=== PATIENT | male | born 1965 | race Caucasian/White ===

== ENCOUNTER → 2016-08-14 | Outpatient (CLI) | payer MEDICARE ==
[~2016-08-14] MED LIST: ATIVAN1 MG PO; AUGMENTIN 875875 MG PO; AVPAK AZITHROM250 M1 PO; BACTRIM DS 8001 TA1 PO; CELEXA10 MG; CELEXA10 MG PO; CELEXA20 MG; CELEXA40 MG PO; CEPHALEXIN500 M1 PO; CLINDAMYCIN HC300 MG PO; CYCLOBENZAPRINE10 MG PO; DELSYM30 MG/5 ML PO; DELTASONE20 M1 PO; ENALAPRIL MALEA20 MG PO; ENALAPRIL10 MG; ENALAPRIL2.5 MG PO; ENALAPRIL20 MG PO; FLONASE 0.05% 121 EA NAS; GABAPENTIN400 MG PO; GENTACIDIN5 ML NAS; HUMALOG100 U/ML SC; HYDROCODONE BIT1 T11 PO; IBU800 M1 PO; IBU800 MG PO; LANSOPRAZOLE30 MG PO; LANTUS100 U/ML SC; LEXAPRO20 MG PO; LINAGLIPTIN 5 MG; LOPRESSOR50 MG PO; METFORMIN HCL1000 MG PO; METFORMIN1000 MG PO; METFORMIN500 MG PO; METOPROLOL SR25 MG PO; METOPROLOL SUCC50 MG PO; METOPROLOL50 MG PO; MOTRIN800 MG PO; NEURONTIN300 MG PO; NORCO 5-325 TA1 EACH PO; NORFLEX100 MG PO; NOVOLIN 701 UNIT/0.0 SC; NOVOLIN R100 U/ML SC; NOVOLOG 70/30 M10 ML SC; NOVOLOG1 UNIT/0.0 SC; NOVOLOG100 U/ML SC; PRAVACHOL20 MG PO; PREDNICOT20 MG PO; RESTORIL30 M1 PO; ROBITUSSIN AC 10 MG/ PO; SEROQUEL XR300 MG PO; SEROQUEL XR400 MG PO; SEROQUEL100 MG PO; SEROQUEL200 MG PO; TAMIFLU75 MG PO; TRADJENTA5 M1 PO; TRAMADOL HCL50 MG PO; VIBRAMYCIN100 MG PO; VICO10300 PO; VISTARIL50 MG PO
--- NOTE | ~2016-08-14 | PF ---
[place], [place] PULMONARY FUNCTION TEST [facility]: [id number] UNIT #: [id number] ROOM: DOCTOR: EITAN VALENTE MD,ALEXANDER BIRTHDATE: [birth year] DOS: 08/14/2016 PULMONARY FUNCTION TEST TESTIN08/14/2016 ORDERED BY: Melissa Clemens. BUTTON SPINDLER HISTORY: The patient recorded a 51 years old male, height of 71 inches, weight of 324 pounds, BMI 45.2 with history of chronic cough with sputum expectoration, dyspnea upon exertion and frequent wheeze. Tobacco use noted 3 packs of cigarettes per day for 41 years. SPIROMETRY: The FVC was recorded 3.81 liters, 72% predicted value, mildly decreased without changes postbronchodilator. FEV1 was noted, 2.88 liters, 70% predicted value, mildly decreased without significant improvement postbronchodilator. Ratio of FEV1/FVC were recorded 76%. Flow volume was suggestive of obstructive airway pattern. The patient's lung volumes, thoracic gas volume recorded 79%, residual volume 106%, total lung capacity 85%. RV/TLC ratio was noted mildly increased. Lung volume suggestive of normal total lung capacity with mild air trapping was suggested. lung diffusion recorded 65%, mildly decreased without correction rather of carbon monoxide or hemoglobin values. The patient's airway resistance, passive conductance were noted normal; however, partial improvement occurred post-bronchodilator test. FINAL IMPRESSION: Possibility of mild reversible obstructive lung disease cannot be excluded with current pulmonary function test. Clinical correlation advised. ALEXANDER LAIRD MD CM:PFREPORT:PULMONARY FUNCTION TEST 1513 [id number] ALEXANDER VALENTE MD
== END ==
LOC: CP 07:58
DX: R05 Cough (principal); Z72.0 Tobacco use

== ENCOUNTER → 2016-12-06 | Outpatient (CLI) | payer MEDICARE ==
[~2016-12-06] MED LIST changes: +INDOMETHACIN50 MG PO
[2016-12-06 12:06] LABS: BASO # 0.1 10*3/uL (0.0-0.1); BASO % 0.9 % (0.0-1.0); EOS # 0.9 10*3/uL (0.0-0.4); EOS % 6.2 % (1.0-4.0); HEMATOCRIT 47.8 % (42.0-52.0); HEMOGLOBIN 15.7 g/dl (14.0-18.0); IG # 0.1 10*3/uL (0.0-0.1); LYMPH # 3.6 10*3/uL (1.3-4.4); LYMPH % 25.9 % (27.0-41.0); MEAN CELL VOLUME 89.3 fl (80.0-94.0); MEAN CORPUSCULAR HGB 29.3 pg (27.0-31.0); MEAN CORPUSCULAR HGB CONC 32.8 g/dl (33.0-37.0); MEAN PLATELET VOLUME 10.1 fl (9.6-12.3); MONO # 0.7 10*3/uL (0.1-1.0); MONO % 5.4 % (3.0-9.0); NEUT # 8.4 10*3/uL (2.3-7.9); NEUT % 61.2 % (47.0-73.0); PLATELET COUNT AUTOMATED 315 10*3/uL (130-400); RED BLOOD COUNT 5.35 10*6/uL (4.50-5.90); RED CELL DISTRI WIDTH 14.7 % (0-14.5); WHITE BLOOD COUNT 13.8 10*3/uL (4.8-10.8)
[2016-12-06 12:29] LABS: ALBUMIN 3.3 gm/dl (3.1-4.5); ALKALINE PHOSPHATASE 171 U/L (45-117); BILIRUBIN, DIRECT < 0.1 mg/dL (0.0-0.2); BILIRUBIN, TOTAL 0.3 mg/dl (0.2-1.0); BUN 12 mg/dl (7-24); CARBON DIOXIDE 25 mmol/L (21-32); CHLORIDE 103 mmol/L (98-107); CHOLESTEROL 127 mg/dL (<200); EST GLOM FILT AFRICAN AMERICAN > 60 ml/min; GLUCOSE 187 mg/dL (65-99); HDL CHOLESTEROL 32 mg/dl (40-60); LDL CHOLESTEROL 60 mg/dL (9-159); POTASSIUM 4.3 mmol/L (3.5-5.1); SGOT/AST 13 IU/L (3-35); SGPT/ALT 22 U/L (12-78); SODIUM 139 mmol/L (136-145); TOTAL PROTEIN 7.1 gm/dL (6.4-8.2); TRIGLYCERIDES 177 mg/dl (<150); VLDL CHOLESTEROL 35 mg/dL (6-40)
[2016-12-06 12:36] LABS: BILIRUBIN NEGATIVE (NEGATIVE); BLOOD NEGATIVE (NEGATIVE); CLARITY CLEAR (CLEAR); COLOR YELLOW (YELLOW); GLUCOSE TRACE (NEGATIVE); KETONE NEGATIVE (NEGATIVE); LEUKO ESTERASE NEGATIVE (NEGATIVE); NITRITE NEGATIVE (NEGATIVE); PH 5.5 (5.0-9.0); PROTEIN NEGATIVE (NEGATIVE)
[2016-12-06 12:36] LABS: VITAMIN D, 25-HYDROXY 14.1 ng/mL (30-100)
[2016-12-06 12:44] LABS: HEMOGLOBIN A1c 7.2 % (4.8-5.6)
[2016-12-06 14:27] LABS: BACTERIA TRACE; RBC 0-2 rbc/hpf (0-2); WBC 0-2 wbc/hpf (0-5)
== END ==
LOC: LAB 11:27
PROVIDERS: Nurse Practitioner Family
DX: E78.4 Other hyperlipidemia (principal); I10 Essential (primary) hypertension; E55.9 Vitamin D deficiency, unspecified; E11.40 Type 2 diabetes mellitus with diabetic neuropathy, unspecified; E11.65 Type 2 diabetes mellitus with hyperglycemia

== ENCOUNTER 2016-12-08 02:14 | Emergency (ER) | payer MEDICARE ==
[~2016-12-08] VITALS: Ht 177.8 cm; Wt 144.2 kg
[~2016-12-08 02:14] MED LIST changes: -INDOMETHACIN50 MG PO
[2016-12-08 02:18] VITALS: BP 137/73
[2016-12-08] MEDS ORDERED: INDOMETHACIN50 MG PO (04:10)
== END 2016-12-08 04:37 | disposition home or self-care (01) ==
LOC: ED 02:14
DX: M94.0 Chondrocostal junction syndrome [Tietze] (principal); J44.9 Chronic obstructive pulmonary disease, unspecified; E11.9 Type 2 diabetes mellitus without complications; I10 Essential (primary) hypertension; F17.200 Nicotine dependence, unspecified, uncomplicated; Z91.030 Bee allergy status; Z79.899 Other long term (current) drug therapy

== ENCOUNTER 2016-12-16 09:03 | Emergency (ER) | payer MEDICARE ==
[~2016-12-16] VITALS: Ht 177.8 cm; Wt 142.4 kg
[~2016-12-16 09:03] MED LIST changes: +INDOMETHACIN50 MG PO
[2016-12-16 09:27] VITALS: BP 168/89
[2016-12-16 10:10] LABS: BASO # 0.1 10*3/uL (0.0-0.1); EOS % 7.2 % (1.0-4.0); HEMATOCRIT 43.4 % (42.0-52.0); HEMOGLOBIN 14.3 g/dl (14.0-18.0); IG # 0.1 10*3/uL (0.0-0.1); LYMPH # 3.6 10*3/uL (1.3-4.4); LYMPH % 24.9 % (27.0-41.0); MEAN CELL VOLUME 88.8 fl (80.0-94.0); MEAN CORPUSCULAR HGB 29.2 pg (27.0-31.0); MEAN CORPUSCULAR HGB CONC 32.9 g/dl (33.0-37.0); MEAN PLATELET VOLUME 9.6 fl (9.6-12.3); MONO # 0.8 10*3/uL (0.1-1.0); MONO % 5.5 % (3.0-9.0); NEUT # 8.7 10*3/uL (2.3-7.9); NEUT % 60.8 % (47.0-73.0); PLATELET COUNT AUTOMATED 334 10*3/uL (130-400); RED BLOOD COUNT 4.89 10*6/uL (4.50-5.90); WHITE BLOOD COUNT 14.3 10*3/uL (4.8-10.8)
[2016-12-16 10:24] LABS: ALBUMIN 3.1 gm/dl (3.1-4.5); ALKALINE PHOSPHATASE 156 U/L (45-117); BILIRUBIN, TOTAL 0.2 mg/dl (0.2-1.0); BUN 18 mg/dl (7-24); CARBON DIOXIDE 23 mmol/L (21-32); CHLORIDE 108 mmol/L (98-107); EST GLOM FILT AFRICAN AMERICAN > 60 ml/min; GLUCOSE 201 mg/dL (65-99); POTASSIUM 4.5 mmol/L (3.5-5.1); SGOT/AST 14 IU/L (3-35); SGPT/ALT 20 U/L (12-78); SODIUM 141 mmol/L (136-145); TOTAL PROTEIN 6.7 gm/dL (6.4-8.2); URIC ACID 3.8 mg/dL (3.5-7.2)
[2016-12-16] MEDS ORDERED: CEPHALEXIN500 M1 PO (11:40)
[2016-12-16] MEDS ORDERED: ULTRAM50 MG PO (11:40)
== END 2016-12-16 11:57 | disposition home or self-care (01) ==
LOC: ED 09:03
PROVIDERS: Registered Nurse
DX: L03.116 Cellulitis of left lower limb (principal); F17.200 Nicotine dependence, unspecified, uncomplicated; Z91.030 Bee allergy status; Z79.4 Long term (current) use of insulin

== ENCOUNTER 2016-12-25 14:14 | Inpatient (IN) | payer MEDICARE ==
[~2016-12-25] VITALS: Ht 177.8 cm; Wt 147.1 kg
[~2016-12-25 14:14] MED LIST changes: +ULTRAM50 MG PO
[2016-12-25 14:21] VITALS: BP 135/70
[2016-12-25 15:20] LABS: BASO # 0.1 10*3/uL (0.0-0.1); BASO % 0.4 % (0.0-1.0); EOS % 4.7 % (1.0-4.0); HEMATOCRIT 45.2 % (42.0-52.0); HEMOGLOBIN 14.7 g/dl (14.0-18.0); IG # 0.1 10*3/uL (0.0-0.1); LYMPH # 2.9 10*3/uL (1.3-4.4); MEAN CELL VOLUME 89.2 fl (80.0-94.0); MEAN CORPUSCULAR HGB CONC 32.5 g/dl (33.0-37.0); MEAN PLATELET VOLUME 10.2 fl (9.6-12.3); MONO % 5.1 % (3.0-9.0); NEUT # 15.4 10*3/uL (2.3-7.9); NEUT % 75.4 % (47.0-73.0); PLATELET COUNT AUTOMATED 341 10*3/uL (130-400); RED BLOOD COUNT 5.07 10*6/uL (4.50-5.90); RED CELL DISTRI WIDTH 15.4 % (0-14.5); WHITE BLOOD COUNT 20.5 10*3/uL (4.8-10.8)
[2016-12-25 15:28] LABS: INTERNATIONAL NORM RATIO 0.9 (2.0-3.5); PROTHROMBIN TIME 9.5 SECONDS (9.0-12.4)
[2016-12-25 15:36] LABS: ALBUMIN 3.7 gm/dl (3.1-4.5); ALKALINE PHOSPHATASE 182 U/L (45-117); BILIRUBIN, TOTAL 0.3 mg/dl (0.2-1.0); BUN 23 mg/dl (7-24); CARBON DIOXIDE 24 mmol/L (21-32); CHLORIDE 106 mmol/L (98-107); EST GLOM FILT AFRICAN AMERICAN > 60 ml/min; GLUCOSE 202 mg/dL (65-99); MAGNESIUM 2.1 mg/dL (1.5-2.1); POTASSIUM 4.6 mmol/L (3.5-5.1); SGOT/AST 17 IU/L (3-35); SGPT/ALT 27 U/L (12-78); SODIUM 139 mmol/L (136-145); TOTAL PROTEIN 7.2 gm/dL (6.4-8.2)
[2016-12-25 15:37] LABS: TROPONIN I < 0.015 ng/ml (<0.045)
[2016-12-25] MEDS ORDERED: ZOCOR20 MG PO (16:15)
[2016-12-25] MEDS ORDERED: JARDIANCE25 MG PO (16:15)
[2016-12-25] MEDS ORDERED: PRILOSEC20 M1 PO (16:16)
[2016-12-25] MEDS ORDERED: TOUJEO300 U/ML SC (16:17)
[2016-12-25] MEDS ORDERED: HUMALOG 751 UNIT/0.0 SC (16:17)
[2016-12-25] MEDS ORDERED: CLEOCIN HCL150 MG PO (16:18)
[2016-12-25] MEDS ORDERED: ZANTAC 150150 MG PO (16:18)
[2016-12-25] MEDS ORDERED: BELSOMRA10 MG PO (16:19)
[2016-12-25 17:00] VITALS: BP 146/80
[2016-12-25 17:01] VITALS: BP 146/80
[2016-12-25] MEDS ORDERED: NEURONTIN800 MG PO (18:10)
[2016-12-25] MEDS ORDERED: XANAX1 MG PO (18:13)
[2016-12-25] MEDS ORDERED: VICO10300 PO (18:14)
[2016-12-25 18:24] LABS: CPK 153 U/L (39-308)
[2016-12-25 18:25] LABS: TROPONIN I < 0.015 ng/ml (<0.045)
[2016-12-25 20:00] VITALS: BP 142/77
[2016-12-25 22:02] LABS: CKMB 3.2 ng/ml (0.5-3.6); CPK 150 U/L (39-308)
[2016-12-25 22:03] LABS: TROPONIN I < 0.015 ng/ml (<0.045)
[2016-12-26] VITALS: BP 132/65
[2016-12-26 00:56] LABS: CKMB 2.9 ng/ml (0.5-3.6); CPK 126 U/L (39-308)
[2016-12-26 00:57] LABS: TROPONIN I < 0.015 ng/ml (<0.045)
[2016-12-26 07:07] LABS: BASO # 0.1 10*3/uL (0.0-0.1); BASO % 0.7 % (0.0-1.0); EOS # 0.8 10*3/uL (0.0-0.4); EOS % 5.9 % (1.0-4.0); HEMATOCRIT 43.6 % (42.0-52.0); HEMOGLOBIN 14.3 g/dl (14.0-18.0); IG # 0.1 10*3/uL (0.0-0.1); LYMPH # 2.1 10*3/uL (1.3-4.4); LYMPH % 15.7 % (27.0-41.0); MEAN CELL VOLUME 88.6 fl (80.0-94.0); MEAN CORPUSCULAR HGB 29.1 pg (27.0-31.0); MEAN CORPUSCULAR HGB CONC 32.8 g/dl (33.0-37.0); MEAN PLATELET VOLUME 9.8 fl (9.6-12.3); MONO # 0.9 10*3/uL (0.1-1.0); MONO % 6.4 % (3.0-9.0); NEUT # 9.6 10*3/uL (2.3-7.9); NEUT % 70.9 % (47.0-73.0); PLATELET COUNT AUTOMATED 288 10*3/uL (130-400); RED BLOOD COUNT 4.92 10*6/uL (4.50-5.90); RED CELL DISTRI WIDTH 15.4 % (0-14.5); WHITE BLOOD COUNT 13.5 10*3/uL (4.8-10.8)
[2016-12-26 07:25] LABS: ALBUMIN 2.9 gm/dl (3.1-4.5); ALKALINE PHOSPHATASE 168 U/L (45-117); BILIRUBIN, TOTAL 0.5 mg/dl (0.2-1.0); BUN 19 mg/dl (7-24); CARBON DIOXIDE 26 mmol/L (21-32); CHLORIDE 108 mmol/L (98-107); EST GLOM FILT AFRICAN AMERICAN > 60 ml/min; GLUCOSE 129 mg/dL (65-99); MAGNESIUM 2.1 mg/dL (1.5-2.1); PHOSPHOROUS 3.2 mg/dL (2.5-4.9); POTASSIUM 4.6 mmol/L (3.5-5.1); SGOT/AST 16 IU/L (3-35); SGPT/ALT 21 U/L (12-78); SODIUM 139 mmol/L (136-145); TOTAL PROTEIN 6.6 gm/dL (6.4-8.2)
[2016-12-26 07:30] LABS: FREE T4 0.65 ng/dl (0.76-1.46)
[2016-12-26 08:00] VITALS: BP 134/62
[2016-12-26 12:00] VITALS: BP 106/50
[2016-12-26 16:00] VITALS: BP 121/50
[2016-12-26 20:00] VITALS: BP 129/68
[2016-12-27] VITALS: BP 116/64
[2016-12-27 06:37] LABS: BASO # 0.1 10*3/uL (0.0-0.1); BASO % 0.8 % (0.0-1.0); EOS # 0.7 10*3/uL (0.0-0.4); EOS % 6.2 % (1.0-4.0); HEMATOCRIT 42.1 % (42.0-52.0); HEMOGLOBIN 13.5 g/dl (14.0-18.0); LYMPH % 25.1 % (27.0-41.0); MEAN CELL VOLUME 88.4 fl (80.0-94.0); MEAN CORPUSCULAR HGB 28.4 pg (27.0-31.0); MEAN CORPUSCULAR HGB CONC 32.1 g/dl (33.0-37.0); MEAN PLATELET VOLUME 10.2 fl (9.6-12.3); MONO % 8.8 % (3.0-9.0); NEUT % 58.8 % (47.0-73.0); PLATELET COUNT AUTOMATED 296 10*3/uL (130-400); RED BLOOD COUNT 4.76 10*6/uL (4.50-5.90); RED CELL DISTRI WIDTH 15.2 % (0-14.5); WHITE BLOOD COUNT 11.9 10*3/uL (4.8-10.8)
[2016-12-27 07:12] LABS: BUN 15 mg/dl (7-24); CHLORIDE 106 mmol/L (98-107); GLUCOSE 95 mg/dL (65-99); POTASSIUM 4.1 mmol/L (3.5-5.1); SODIUM 137 mmol/L (136-145)
[2016-12-27 07:15] LABS: CARBON DIOXIDE 23 mmol/L (21-32); EST GLOM FILT AFRICAN AMERICAN > 60 ml/min
[2016-12-27 08:00] VITALS: BP 139/71
[2016-12-27] MEDS ORDERED: OMNICEF300 MG PO (11:20)
[2016-12-27] MEDS ORDERED: CEPHALEXIN500 M1 PO ×2 (11:28→11:29)
[2016-12-27] MEDS ORDERED: LAMISIL250 MG PO ×2 (11:35→11:38)
[2016-12-27] MEDS ORDERED: ATHLETE'S FOOT15 GM T ×2 (11:35→11:38)
[2016-12-27 12:00] VITALS: BP 145/80
== END 2016-12-27 12:31 | disposition home or self-care (01) | DRG 872 ==
LOC: ED 14:14 → EDHOLD 15:48 → 4E 15:48
PROVIDERS: Hospitalist; Internal Medicine; Physician Assistant
DX: A41.9 Sepsis, unspecified organism (principal); E11.40 Type 2 diabetes mellitus with diabetic neuropathy, unspecified; E44.0 Moderate protein-calorie malnutrition; E11.65 Type 2 diabetes mellitus with hyperglycemia; L03.116 Cellulitis of left lower limb; F17.200 Nicotine dependence, unspecified, uncomplicated; I10 Essential (primary) hypertension; B35.1 Tinea unguium; Z68.42 Body mass index [BMI] 45.0-49.9, adult; G47.00 Insomnia, unspecified; E66.01 Morbid (severe) obesity due to excess calories; G47.33 Obstructive sleep apnea (adult) (pediatric); J44.9 Chronic obstructive pulmonary disease, unspecified; E78.5 Hyperlipidemia, unspecified; M1A.9XX0 Chronic gout, unspecified, without tophus (tophi); K21.9 Gastro-esophageal reflux disease without esophagitis; Z95.5 Presence of coronary angioplasty implant and graft; Z91.030 Bee allergy status; Z79.2 Long term (current) use of antibiotics; Z79.899 Other long term (current) drug therapy; Z71.6 Tobacco abuse counseling; Z79.4 Long term (current) use of insulin; Z79.84 Long term (current) use of oral hypoglycemic drugs

== ENCOUNTER 2017-01-03 10:48 | Inpatient (IN) | payer MEDICARE ==
[~2017-01-03] VITALS: Ht 179.1 cm; Wt 140.8 kg
--- NOTE | ~2017-01-03 | CON ---
[place], [place] REPORT OF CONSULTATION NAME[id number] UNIT #: [id number] ROOM: 404 DOCTOR: SIS SMALL,OCTOBER BIRTHDATE: [birth year] DOS: 01/03/2017 HISTORY OF PRESENT ILLNESS: The patient is a 51-year-old male who was readmitted for leukocytosis. He was just discharged a few days ago for cellulitis. He was originally given vancomycin and Zosyn then switched over to Ancef during the hospitalization and then eventually discharged on Keflex 1000 mg p.o. q. 6 hours. He was admitted due to following up with his family doctor and had elevated WBCs, they are currently 17.7. He denies any fevers or chills. He feels well. No nausea, vomiting or diarrhea. He does have some elevation in eosinophils on his differential. He feels well. States the leg has slowly been improving at home. Continues with left leg swelling, redness and pain. He is also on Lamisil for onychomycosis and he has been using Lamisil topically for tinea pedis. He has had an ultrasound that was negative for DVT. PAST MEDICAL HISTORY: As above as well as cervical radiculopathy, COPD, diabetes, dyslipidemia, GERD, gout, hypertension, obesity, neuropathy, onychomycosis, obstructive sleep apnea, PTCA. SOCIAL HISTORY: He is a chronic smoker, nondrinker, no illicit drug use. FAMILY MEDICAL HISTORY: Significant for CHF, diabetes and hypertension. ALLERGIES: INCLUDE BEESTINGS. LABORATORY DATA: WBC 17.7, platelets 397. BUN 14, creatinine 0.93. MRSA screen is pending. Blood cultures are negative from his last hospitalization and I do not see whether he has ever had an MRSA screen. REVIEW OF SYSTEMS: As above in history of present illness. No cough or shortness of breath. No rash or itch. Again, no fevers or shaking chills. He feels well. He does still have some pain, swelling and redness of the left lower extremity, which he states has been slowly improving. He is obese, diabetic, has peripheral neuropathy. Review of systems is otherwise unremarkable. PHYSICAL EXAMINATION: VITAL SIGNS: Temp 98.2, pulse 74, respirations 18, BP 132/74. GENERAL: A 51-year-old obese male, in no acute distress. HEAD, EYES, EARS, NOSE AND THROAT: Normocephalic. No thrush. NECK: Supple. LUNGS: Clear to auscultation bilaterally. Respirations even and unlabored. HEART: Regular rhythm. No murmur appreciated. ABDOMEN: Soft, obese, nontender. No masses. EXTREMITIES: Left lower extremity +2 to 3 edema with mild dull erythema, increased warmth, some tenderness. Left foot with tinea pedis. He has onychomycosis. SKIN: Otherwise, warm, dry, free of rashes. ASSESSMENT: Left lower extremity cellulitis, leukocytosis, eosinophilia. [place], [place] REPORT OF CONSULTATION NAME: ANTOLIN RICKETTS UNIT #: [id number] ROOM: 404 DOCTOR: SIS SMALLOCTOBER BIRTHDATE: [birth year] PLAN: At this point, he is to complete the Keflex he has at home. We will give him vancomycin overnight, await his MRSA screen. Upon discharge, he could have doxycycline 100 mg twice a day. I did discuss with him the need to keep his leg elevated while he is trying to recover from the cellulitis to aid in the swelling, redness and discomfort. He very much wants to leave tonight, which I would consider after dose of vancomycin, but it is preferred per his hospitalist to keep him here overnight, which is certainly reasonable. Again, as long as he does well overnight, he will be fine to go home tomorrow on doxycycline and finish up the Keflex that he has. I will give him a few extra days of the Keflex, but I suspect his small improvement in elevated WBCs at home may be in part contributable to need for MRSA coverage. GEORGE ALEGRE CNP JERAD VILLALOBOS MD CM:CONSTR:REPORT OF CONSULTATION 1907 01/04/17 0844 interface
--- NOTE | ~2017-01-03 | CON ---
[place], [place] REPORT OF CONSULTATION NAME: ANTOLIN RICKETTS UNIT #: [id number] ROOM: 404 DOCTOR: SIS SMALL,OCTOBER BIRTHDATE: [birth year] DOS: ADDENDUM: I did discuss with the patient instructions for taking the doxycycline including warning him regarding photosensitivity as well as taking with food to prevent nausea and vomiting and avoiding calcium and dairy products for 1 hour before and after taking. GEORGE ALEGRE CNP JERAD VILLALOBOS MD CM:CONSTR:REPORT OF CONSULTATION 1908 01/04/17 0845 interface
--- NOTE | ~2017-01-03 | CON ---
[place], [place] REPORT OF CONSULTATION NAME: ANTOLIN RICKETTS UNIT #: [id number] ROOM: 404 DOCTOR: WILFREDO JOHNSON,JERAD Yao BIRTHDATE: [birth year] DOS: 01/03/2017 ADDENDUM I agree with the above plans as described and outlined after reviewing the chart, labs radiographs and cultures. We will make adjustments accordingly and followup clinically. JERAD VILLALOBOS MD CM:CONSTR:REPORT OF CONSULTATION 1738 01/06/17 1259 interface
[~2017-01-03 10:48] MED LIST changes: +ATHLETE'S FOOT15 GM T; +BELSOMRA10 MG PO; +CLEOCIN HCL150 MG PO; +HUMALOG 751 UNIT/0.0 SC; +JARDIANCE25 MG PO; +LAMISIL250 MG PO; +NEURONTIN800 MG PO; +OMNICEF300 MG PO; +PRILOSEC20 M1 PO; +TOUJEO300 U/ML SC; +XANAX1 MG PO; +ZANTAC 150150 MG PO; +ZOCOR20 MG PO
[2017-01-03 11:00] VITALS: BP 122/65
[2017-01-03 11:03] VITALS: BP 125/69
[2017-01-03] MEDS ORDERED: LOPRESSOR50 M1 PO (12:15)
[2017-01-03] MEDS ORDERED: QUETIAPINE FUM PO ×2 (12:30→12:32)
[2017-01-03] MEDS ORDERED: LAMISIL250 MG PO (12:38)
[2017-01-03 14:32] LABS: BASO # 0.1 10*3/uL (0.0-0.1); BASO % 0.7 % (0.0-1.0); EOS % 5.9 % (1.0-4.0); HEMATOCRIT 43.9 % (42.0-52.0); HEMOGLOBIN 14.3 g/dl (14.0-18.0); IG # 0.1 10*3/uL (0.0-0.1); LYMPH # 3.7 10*3/uL (1.3-4.4); LYMPH % 20.6 % (27.0-41.0); MEAN CELL VOLUME 87.1 fl (80.0-94.0); MEAN CORPUSCULAR HGB 28.4 pg (27.0-31.0); MEAN CORPUSCULAR HGB CONC 32.6 g/dl (33.0-37.0); MEAN PLATELET VOLUME 9.7 fl (9.6-12.3); MONO # 0.9 10*3/uL (0.1-1.0); MONO % 5.1 % (3.0-9.0); NEUT % 67.4 % (47.0-73.0); PLATELET COUNT AUTOMATED 397 10*3/uL (130-400); RED BLOOD COUNT 5.04 10*6/uL (4.50-5.90); WHITE BLOOD COUNT 17.7 10*3/uL (4.8-10.8)
[2017-01-03 14:43] LABS: BUN 14 mg/dl (7-24); CARBON DIOXIDE 25 mmol/L (21-32); CHLORIDE 105 mmol/L (98-107); EST GLOM FILT AFRICAN AMERICAN > 60 ml/min; GLUCOSE 218 mg/dL (65-99); POTASSIUM 4.6 mmol/L (3.5-5.1); SODIUM 140 mmol/L (136-145)
[2017-01-03 16:00] VITALS: BP 132/74
[2017-01-03 20:00] VITALS: BP 130/70
[2017-01-04] VITALS: BP 100/52
[2017-01-04 06:39] LABS: BASO # 0.1 10*3/uL (0.0-0.1); BASO % 0.9 % (0.0-1.0); EOS % 7.9 % (1.0-4.0); HEMATOCRIT 42.3 % (42.0-52.0); HEMOGLOBIN 13.8 g/dl (14.0-18.0); IG # 0.1 10*3/uL (0.0-0.1); LYMPH # 3.4 10*3/uL (1.3-4.4); LYMPH % 26.6 % (27.0-41.0); MEAN CELL VOLUME 87.4 fl (80.0-94.0); MEAN CORPUSCULAR HGB 28.5 pg (27.0-31.0); MEAN CORPUSCULAR HGB CONC 32.6 g/dl (33.0-37.0); MEAN PLATELET VOLUME 9.5 fl (9.6-12.3); MONO # 0.8 10*3/uL (0.1-1.0); MONO % 6.4 % (3.0-9.0); NEUT # 7.3 10*3/uL (2.3-7.9); NEUT % 57.7 % (47.0-73.0); PLATELET COUNT AUTOMATED 362 10*3/uL (130-400); RED BLOOD COUNT 4.84 10*6/uL (4.50-5.90); WHITE BLOOD COUNT 12.7 10*3/uL (4.8-10.8)
[2017-01-04 07:15] LABS: ALBUMIN 2.9 gm/dl (3.1-4.5); BUN 15 mg/dl (7-24); CARBON DIOXIDE 29 mmol/L (21-32); CHLORIDE 104 mmol/L (98-107); EST GLOM FILT AFRICAN AMERICAN > 60 ml/min; GLUCOSE 165 mg/dL (65-99); MAGNESIUM 2.3 mg/dL (1.5-2.1); PHOSPHOROUS 4.3 mg/dL (2.5-4.9); POTASSIUM 4.2 mmol/L (3.5-5.1); SGOT/AST 13 IU/L (3-35); SGPT/ALT 18 U/L (12-78); SODIUM 141 mmol/L (136-145)
[2017-01-04 07:22] LABS: ALKALINE PHOSPHATASE 167 U/L (45-117); BILIRUBIN, TOTAL 0.3 mg/dl (0.2-1.0); TOTAL PROTEIN 6.8 gm/dL (6.4-8.2)
[2017-01-04 08:00] VITALS: BP 116/78
[2017-01-04 08:01] VITALS: BP 116/78
[2017-01-04] MEDS ORDERED: DOXYCYCLINE100 M3 PO (10:07)
[2017-01-04] MEDS ORDERED: KEFLEX500 M1 PO (10:07)
[2017-01-04] MEDS ORDERED: VITAMIN D1000 IU PO (11:00)
[2017-01-04 12:00] VITALS: BP 122/54
== END 2017-01-04 13:01 | disposition home or self-care (01) | DRG 603 ==
LOC: 4E 10:48
PROVIDERS: Hospitalist
DX: L03.116 Cellulitis of left lower limb (principal); E11.40 Type 2 diabetes mellitus with diabetic neuropathy, unspecified; E11.621 Type 2 diabetes mellitus with foot ulcer; E11.65 Type 2 diabetes mellitus with hyperglycemia; D72.1 Eosinophilia; L97.419 Non-pressure chronic ulcer of right heel and midfoot with unspecified severity; Z68.41 Body mass index [BMI] 40.0-44.9, adult; J42 Unspecified chronic bronchitis; G47.33 Obstructive sleep apnea (adult) (pediatric); I10 Essential (primary) hypertension; E78.5 Hyperlipidemia, unspecified; M1A.9XX0 Chronic gout, unspecified, without tophus (tophi); K21.9 Gastro-esophageal reflux disease without esophagitis; B35.1 Tinea unguium; E66.01 Morbid (severe) obesity due to excess calories; F17.210 Nicotine dependence, cigarettes, uncomplicated; G47.00 Insomnia, unspecified; E55.9 Vitamin D deficiency, unspecified; B35.3 Tinea pedis; Z95.5 Presence of coronary angioplasty implant and graft; Z82.49 Family history of ischemic heart disease and other diseases of the circulatory system; Z83.3 Family history of diabetes mellitus; Z91.030 Bee allergy status; Z79.1 Long term (current) use of non-steroidal anti-inflammatories (NSAID); Z79.4 Long term (current) use of insulin; Z79.899 Other long term (current) drug therapy; Z79.84 Long term (current) use of oral hypoglycemic drugs

== ENCOUNTER → 2017-03-05 | Outpatient (CLI) | payer MEDICARE ==
[~2017-03-05] MED LIST changes: +DOXYCYCLINE100 M3 PO; +KEFLEX500 M1 PO; +LOPRESSOR50 M1 PO; +QUETIAPINE FUM PO; +VITAMIN D1000 IU PO
== END | disposition home or self-care (01) ==
LOC: RAD 14:54
DX: M47.812 Spondylosis without myelopathy or radiculopathy, cervical region (principal); R53.1 Weakness; M79.601 Pain in right arm; M79.602 Pain in left arm

== ENCOUNTER 2017-03-07 11:33 | Inpatient (IN) | payer MEDICARE ==
[~2017-03-07] VITALS: Ht 177.8 cm; Wt 142.0 kg
--- NOTE | ~2017-03-07 | CON ---
[place], [place] REPORT OF CONSULTATION NAME: ANTOLIN RICKETTS [facility] #: [id number] UNIT #: [id number] ROOM: 425 DOCTOR: EN CHILDRESS DPM BIRTHDATE: [birth year] DOS: 03/08/2017 SUBJECTIVE: The patient is a 52-year-old male who was admitted with swelling and redness of the left lower extremity yesterday. The patient has history of cellulitis previously. PAST MEDICAL HISTORY: The patient has a past medical history of cellulitis, Charcot ankle, hyperkalemia, hyperphosphatemia, hyponatremia, leukocytosis, morbid obesity with BMI of 40 to 44.9, tobacco abuse, uncontrolled diabetes, vitamin D deficiency, cervical radiculopathy, COPD, diabetes, dyslipidemia, GERD, gout, hypertension, insomnia, morbid obesity, neuropathy, onychomycosis, obstructive sleep apnea. PAST SURGICAL HISTORY: PTCA. SOCIAL HISTORY: History of smoking. Denies alcohol or illicit drug use. FAMILY HISTORY: Nonspecified for CHF, diabetes, hypertension. ALLERGIES: BEE STINGS. PHYSICAL EXAMINATION: EXTREMITIES: Lower extremity examination: Pedal pulses palpable, but diminished. There is mild cellulitis of left lower extremity with venous stasis and venous insufficiency. There is a preulcerative blister to the plantar left heel, but no full thickness breakdown, no signs of abscess noted. No signs of infection. Venous Doppler was negative for DVT. There is edema to the left ankle and foot. IMAGING: Results of radiographs of the left foot reveal evidence of probable Charcot arthropathy and mid foot dislocation and AVN of the navicular, disrupted Lisfranc ligament, suspected small lucency at the base of the fifth metatarsal. ASSESSMENT: Cellulitis, venous insufficiency, edema, left lower extremity with Charcot arthropathy. PLAN: Evaluation and management. Discharge per Internal Medicine. The patient is improving with IV antibiotics. Discussed with the patient we will obtain an MRI to ascertain the amount of destruction from the Charcot arthropathy. The patient does not need surgical intervention at this time, is to limit weightbearing. The patient will be placed into a torch walker upon discharge to offload the Charcot arthropathy. Discussed with the patient possibility of further collapse of the longitudinal arch, which would increase the risk of ulceration, plantar aspect of the foot. The patient understood this. We will order an MRI. If the patient is discharged before the MRI can be obtained, the MRI can be performed on an outpatient basis. Again, the patient will be seen for followup Friday if he is still in-house. Otherwise, we will consult him outpatient at the office and set the patient up with a torch walker for the Charcot arthropathy deformity. [place], [place] REPORT OF CONSULTATION NAME: ANTOLIN RICKETTS UNIT #: [id number] ROOM: 425 DOCTOR: EN CHILDRESS DPM BIRTHDATE: [birth year] EN CHILDRESS DPM CM:CONSTR:REPORT OF CONSULTATION 1025 03/08/17 1040 interface
[2017-03-07 11:42] VITALS: BP 156/74
[2017-03-07 12:12] LABS: BASO # 0.1 10*3/uL (0.0-0.1); BASO % 0.5 % (0.0-1.0); EOS % 0.3 % (1.0-4.0); HEMATOCRIT 40.7 % (42.0-52.0); HEMOGLOBIN 13.2 g/dl (14.0-18.0); IG # 0.1 10*3/uL (0.0-0.1); LYMPH # 1.8 10*3/uL (1.3-4.4); LYMPH % 11.5 % (27.0-41.0); MEAN CELL VOLUME 84.8 fl (80.0-94.0); MEAN CORPUSCULAR HGB 27.5 pg (27.0-31.0); MEAN CORPUSCULAR HGB CONC 32.4 g/dl (33.0-37.0); MEAN PLATELET VOLUME 9.6 fl (9.6-12.3); MONO # 0.3 10*3/uL (0.1-1.0); MONO % 2.1 % (3.0-9.0); PLATELET COUNT AUTOMATED 476 10*3/uL (130-400); RED CELL DISTRI WIDTH 15.6 % (0-14.5); WHITE BLOOD COUNT 15.3 10*3/uL (4.8-10.8)
[2017-03-07 12:26] LABS: ALBUMIN 3.4 gm/dl (3.1-4.5); ALKALINE PHOSPHATASE 218 U/L (45-117); BILIRUBIN, TOTAL 0.3 mg/dl (0.2-1.0); BUN 18 mg/dl (7-24); CARBON DIOXIDE 26 mmol/L (21-32); CHLORIDE 98 mmol/L (98-107); EST GLOM FILT AFRICAN AMERICAN > 60 ml/min; GLUCOSE 323 mg/dL (65-99); POTASSIUM 5.3 mmol/L (3.5-5.1); SGOT/AST 14 IU/L (3-35); SGPT/ALT 17 U/L (12-78); SODIUM 131 mmol/L (136-145); TOTAL PROTEIN 8.2 gm/dL (6.4-8.2)
[2017-03-07 15:32] VITALS: BP 152/67
[2017-03-07 20:00] VITALS: BP 142/70
[2017-03-08] VITALS: BP 149/80
[2017-03-08 06:57] LABS: BASO # 0.1 10*3/uL (0.0-0.1); BASO % 0.7 % (0.0-1.0); EOS # 0.3 10*3/uL (0.0-0.4); EOS % 2.6 % (1.0-4.0); HEMATOCRIT 38.6 % (42.0-52.0); HEMOGLOBIN 12.4 g/dl (14.0-18.0); IG # 0.1 10*3/uL (0.0-0.1); LYMPH # 3.4 10*3/uL (1.3-4.4); MEAN CELL VOLUME 84.5 fl (80.0-94.0); MEAN CORPUSCULAR HGB 27.1 pg (27.0-31.0); MEAN CORPUSCULAR HGB CONC 32.1 g/dl (33.0-37.0); MONO # 0.7 10*3/uL (0.1-1.0); MONO % 6.3 % (3.0-9.0); NEUT # 7.1 10*3/uL (2.3-7.9); NEUT % 60.7 % (47.0-73.0); PLATELET COUNT AUTOMATED 425 10*3/uL (130-400); RED BLOOD COUNT 4.57 10*6/uL (4.50-5.90); RED CELL DISTRI WIDTH 15.5 % (0-14.5); WHITE BLOOD COUNT 11.7 10*3/uL (4.8-10.8)
[2017-03-08 07:10] LABS: ALBUMIN 2.8 gm/dl (3.1-4.5); ALKALINE PHOSPHATASE 167 U/L (45-117); BILIRUBIN, TOTAL 0.3 mg/dl (0.2-1.0); BUN 13 mg/dl (7-24); CARBON DIOXIDE 28 mmol/L (21-32); CHLORIDE 102 mmol/L (98-107); EST GLOM FILT AFRICAN AMERICAN > 60 ml/min; GLUCOSE 219 mg/dL (65-99); MAGNESIUM 1.7 mg/dL (1.5-2.1); PHOSPHOROUS 3.1 mg/dL (2.5-4.9); SGOT/AST 13 IU/L (3-35); SGPT/ALT 14 U/L (12-78); SODIUM 138 mmol/L (136-145); TOTAL PROTEIN 6.6 gm/dL (6.4-8.2)
[2017-03-08 07:35] LABS: POTASSIUM 4.1 mmol/L (3.5-5.1)
[2017-03-08 08:00] VITALS: BP 131/55
[2017-03-08] MEDS ORDERED: BACTRIM 400-801 EACH PO (11:20)
== END 2017-03-08 12:07 | disposition home or self-care (01) | DRG 603 ==
LOC: ED 11:33 → EDHOLD 14:16 → 4E 14:48
PROVIDERS: Nurse Practitioner Family; Registered Nurse
DX: L03.116 Cellulitis of left lower limb (principal); E11.40 Type 2 diabetes mellitus with diabetic neuropathy, unspecified; I50.9 Heart failure, unspecified; I11.0 Hypertensive heart disease with heart failure; E87.1 Hypo-osmolality and hyponatremia; Z68.41 Body mass index [BMI] 40.0-44.9, adult; E11.65 Type 2 diabetes mellitus with hyperglycemia; F17.200 Nicotine dependence, unspecified, uncomplicated; E66.01 Morbid (severe) obesity due to excess calories; M54.12 Radiculopathy, cervical region; J44.9 Chronic obstructive pulmonary disease, unspecified; E78.5 Hyperlipidemia, unspecified; K21.9 Gastro-esophageal reflux disease without esophagitis; M10.9 Gout, unspecified; G47.33 Obstructive sleep apnea (adult) (pediatric); E55.9 Vitamin D deficiency, unspecified; E87.5 Hyperkalemia; E11.610 Type 2 diabetes mellitus with diabetic neuropathic arthropathy; D64.9 Anemia, unspecified; D47.3 Essential (hemorrhagic) thrombocythemia; Z91.030 Bee allergy status; Z79.4 Long term (current) use of insulin; Z71.6 Tobacco abuse counseling; Z83.3 Family history of diabetes mellitus; Z82.49 Family history of ischemic heart disease and other diseases of the circulatory system

== ENCOUNTER 2017-03-13 20:20 | Inpatient (IN) | payer MEDICARE ==
[~2017-03-13] VITALS: Ht 177.8 cm; Wt 141.7 kg
--- NOTE | ~2017-03-13 | CON ---
[place], [place] REPORT OF CONSULTATION [id number] UNIT #: [id number] ROOM: 404 DOCTOR: DOMINGA DAYMITALI BIRTHDATE: [birth year] DOS: 03/14/2017 SUBJECTIVE: This 52-year-old white male is seen as a consult for left lower extremity edema and pain. The patient was hospitalized about a week ago and was found to have Charcot arthropathy in the left foot. He was discharged at his own request earlier than he should have been and he returned back to the ER yesterday with swelling and redness and pain in his left foot and lower extremity. He denies fever, chills, nausea, vomiting or night sweats. He states his swelling and pain worsened over the last few days. PAST MEDICAL HISTORY: Positive for cervical radiculopathy, COPD, diabetes mellitus, recent Charcot foot, dyslipidemia, gastroesophageal reflux disease, gout, hypertension, morbid obesity, neuropathy, tobacco abuse, vitamin D deficiency. ALLERGIES: BEE STINGS. CURRENT MEDICATIONS: Include Lovenox, insulin, Zosyn, vancomycin, Restoril, Zofran, [place]. OBJECTIVE: Upon lower extremity physical examination, DP pedal pulses are palpable and PT pedal pulses somewhat difficult to palpate in the left ankle because of swelling. He does have some pain noted to palpation in left mid foot and ankle with range of motion. There is fairly significant edema noted about the left foot and ankle with erythema and increased temperature, mild medial column breakdown consistent with Charcot arthropathy. There is some pain noted with passive range of motion of mid foot joints with some crepitation of the joints. There is a small ecchymotic area in the plantar heel that does not appear to be any type of infectious process or wound. All findings are consistent with Charcot arthropathy of the left foot. LABORATORY DATA: His white blood cell count was slightly elevated at 11.5. He has been afebrile. White blood cell count is down from yesterday when it was 14.7. ASSESSMENT: Charcot arthropathy, left foot; uncontrolled diabetes with neuropathy and mild cellulitis of left lower leg. PLAN: Consult is performed. Discussed with the patient about the Charcot arthropathy and the process. The patient will need to be immobilized upon discharge either in a cast or a custom boot. I discussed complications of Charcot arthropathy with the patient. Right now, continue IV antibiotics. I told him to keep his foot elevated and stay off his foot. We will reevaluate him tomorrow, hopefully discharge in the next day or two, but right now continue with current treatment and reevaluate tomorrow. Thank you for the opportunity to take part in care of this patient. [place], [place] REPORT OF CONSULTATION NAME: ANTOLIN RICKETTS [facility] UNIT #: [id number] ROOM: 404 DOCTOR: MITALI ORR DPM BIRTHDATE: [birth year] MITALI ORR DPM CM:CONSTR:REPORT OF CONSULTATION 6 03/14/17 2253 interface
[~2017-03-13 20:20] MED LIST changes: +BACTRIM 400-801 EACH PO
[2017-03-13 20:41] VITALS: BP 142/70
[2017-03-13 21:24] LABS: BASO # 0.1 10*3/uL (0.0-0.1); BASO % 0.7 % (0.0-1.0); EOS # 0.5 10*3/uL (0.0-0.4); EOS % 3.4 % (1.0-4.0); HEMATOCRIT 41.2 % (42.0-52.0); HEMOGLOBIN 13.4 g/dl (14.0-18.0); IG # 0.1 10*3/uL (0.0-0.1); LYMPH # 3.3 10*3/uL (1.3-4.4); LYMPH % 22.7 % (27.0-41.0); MEAN CELL VOLUME 84.1 fl (80.0-94.0); MEAN CORPUSCULAR HGB 27.3 pg (27.0-31.0); MEAN CORPUSCULAR HGB CONC 32.5 g/dl (33.0-37.0); MEAN PLATELET VOLUME 9.7 fl (9.6-12.3); MONO # 0.7 10*3/uL (0.1-1.0); MONO % 4.5 % (3.0-9.0); NEUT % 68.2 % (47.0-73.0); PLATELET COUNT AUTOMATED 427 10*3/uL (130-400); RED CELL DISTRI WIDTH 15.8 % (0-14.5); WHITE BLOOD COUNT 14.7 10*3/uL (4.8-10.8)
[2017-03-13 21:38] LABS: ALBUMIN 3.3 gm/dl (3.1-4.5); ALKALINE PHOSPHATASE 203 U/L (45-117); BILIRUBIN, TOTAL 0.3 mg/dl (0.2-1.0); BUN 19 mg/dl (7-24); CARBON DIOXIDE 26 mmol/L (21-32); CHLORIDE 97 mmol/L (98-107); EST GLOM FILT AFRICAN AMERICAN > 60 ml/min; GLUCOSE 307 mg/dL (65-99); POTASSIUM 4.5 mmol/L (3.5-5.1); SGOT/AST 5 IU/L (3-35); SGPT/ALT 16 U/L (12-78); SODIUM 133 mmol/L (136-145); TOTAL PROTEIN 7.7 gm/dL (6.4-8.2)
[2017-03-13 22:50] VITALS: BP 140/68
[2017-03-13 23:00] VITALS: BP 126/59
[2017-03-13 23:21] LABS: LA>2 REFLEX 2 HR DRAW NOW
[2017-03-14] VITALS: BP 128/66
[2017-03-14 05:21] LABS: BUN 17 mg/dl (7-24); CARBON DIOXIDE 27 mmol/L (21-32); CHLORIDE 104 mmol/L (98-107); EST GLOM FILT AFRICAN AMERICAN > 60 ml/min; GLUCOSE 220 mg/dL (65-99); SODIUM 136 mmol/L (136-145)
[2017-03-14 05:52] LABS: BASO # 0.1 10*3/uL (0.0-0.1); BASO % 0.9 % (0.0-1.0); EOS # 0.6 10*3/uL (0.0-0.4); EOS % 5.2 % (1.0-4.0); HEMATOCRIT 38.1 % (42.0-52.0); HEMOGLOBIN 12.3 g/dl (14.0-18.0); IG # 0.1 10*3/uL (0.0-0.1); LYMPH # 2.8 10*3/uL (1.3-4.4); MEAN CELL VOLUME 85.2 fl (80.0-94.0); MEAN CORPUSCULAR HGB 27.5 pg (27.0-31.0); MEAN CORPUSCULAR HGB CONC 32.3 g/dl (33.0-37.0); MONO # 0.7 10*3/uL (0.1-1.0); MONO % 6.3 % (3.0-9.0); NEUT # 7.2 10*3/uL (2.3-7.9); NEUT % 63.1 % (47.0-73.0); PLATELET COUNT AUTOMATED 386 10*3/uL (130-400); RED BLOOD COUNT 4.47 10*6/uL (4.50-5.90); RED CELL DISTRI WIDTH 15.8 % (0-14.5); WHITE BLOOD COUNT 11.5 10*3/uL (4.8-10.8)
[2017-03-14 06:28] LABS: INTERNATIONAL NORM RATIO 0.9 (2.0-3.5); PROTHROMBIN TIME 9.8 SECONDS (9.0-12.4)
[2017-03-14 08:00] VITALS: BP 100/51
[2017-03-14 12:00] VITALS: BP 96/58
[2017-03-14 16:00] VITALS: BP 110/48
== END 2017-03-14 19:27 | disposition left against medical advice (07) | DRG 872 ==
LOC: ED 20:20 → EDHOLD 22:16 → 4E 22:16
PROVIDERS: Internal Medicine; Physician Assistant
DX: A41.9 Sepsis, unspecified organism (principal); E11.610 Type 2 diabetes mellitus with diabetic neuropathic arthropathy; E44.0 Moderate protein-calorie malnutrition; E11.65 Type 2 diabetes mellitus with hyperglycemia; E87.8 Other disorders of electrolyte and fluid balance, not elsewhere classified; E87.1 Hypo-osmolality and hyponatremia; Z68.41 Body mass index [BMI] 40.0-44.9, adult; L03.116 Cellulitis of left lower limb; J44.9 Chronic obstructive pulmonary disease, unspecified; M10.9 Gout, unspecified; E78.5 Hyperlipidemia, unspecified; Z53.21 Procedure and treatment not carried out due to patient leaving prior to being seen by health care provider; K21.9 Gastro-esophageal reflux disease without esophagitis; E66.01 Morbid (severe) obesity due to excess calories; I10 Essential (primary) hypertension; G47.33 Obstructive sleep apnea (adult) (pediatric); E55.9 Vitamin D deficiency, unspecified; D47.3 Essential (hemorrhagic) thrombocythemia; Z91.030 Bee allergy status; Z79.899 Other long term (current) drug therapy; Z82.49 Family history of ischemic heart disease and other diseases of the circulatory system; Z83.3 Family history of diabetes mellitus; Z82.3 Family history of stroke; Z79.84 Long term (current) use of oral hypoglycemic drugs; Z79.4 Long term (current) use of insulin; Z71.6 Tobacco abuse counseling; F17.200 Nicotine dependence, unspecified, uncomplicated

== ENCOUNTER → 2017-05-14 | Outpatient (CLI) | payer MEDICARE | END | disposition home or self-care (01) | LOC: CARD 10:27 | DX: I51.7 Cardiomegaly (principal) ==

== ENCOUNTER 2017-05-15 14:40 | Emergency (ER) | payer MEDICARE ==
[~2017-05-15] VITALS: Ht 177.8 cm; Wt 139.7 kg
[2017-05-15 14:50] VITALS: BP 139/74
[2017-05-15] MEDS ORDERED: NORCO 5-325 TA1 EACH PO (15:51)
== END 2017-05-15 15:46 | disposition home or self-care (01) ==
LOC: ED 14:40
DX: S22.42XA Multiple fractures of ribs, left side, initial encounter for closed fracture (principal); E11.42 Type 2 diabetes mellitus with diabetic polyneuropathy; J44.9 Chronic obstructive pulmonary disease, unspecified; E78.5 Hyperlipidemia, unspecified; F17.210 Nicotine dependence, cigarettes, uncomplicated; K21.9 Gastro-esophageal reflux disease without esophagitis; I10 Essential (primary) hypertension; E66.01 Morbid (severe) obesity due to excess calories; Z68.41 Body mass index [BMI] 40.0-44.9, adult; Z91.030 Bee allergy status; X58.XXXA Exposure to other specified factors, initial encounter; Y93.9 Activity, unspecified; Y92.9 Unspecified place or not applicable; Y99.9 Unspecified external cause status

== ENCOUNTER → 2017-08-29 | Outpatient (CLI) | payer MEDICARE ==
[2017-08-29 12:08] LABS: BASO # 0.1 10*3/uL (0.0-0.1); BASO % 0.7 % (0.0-1.0); EOS # 0.5 10*3/uL (0.0-0.4); EOS % 3.2 % (1.0-4.0); HEMATOCRIT 41.3 % (42.0-52.0); HEMOGLOBIN 12.9 g/dl (14.0-18.0); LYMPH # 3.5 10*3/uL (1.3-4.4); LYMPH % 21.1 % (27.0-41.0); MEAN CELL VOLUME 83.3 fl (80.0-94.0); MEAN CORPUSCULAR HGB CONC 31.2 g/dl (33.0-37.0); MONO # 0.8 10*3/uL (0.1-1.0); MONO % 4.9 % (3.0-9.0); NEUT # 11.4 10*3/uL (2.3-7.9); NEUT % 69.8 % (47.0-73.0); PLATELET COUNT AUTOMATED 523 10*3/uL (130-400); RED BLOOD COUNT 4.96 10*6/uL (4.50-5.90); RED CELL DISTRI WIDTH 15.9 % (0-14.5); WHITE BLOOD COUNT 16.4 10*3/uL (4.8-10.8)
[2017-08-29 12:20] LABS: ALBUMIN 3.5 gm/dl (3.1-4.5); ALKALINE PHOSPHATASE 237 U/L (45-117); BUN 16 mg/dl (7-24); CHLORIDE 102 mmol/L (98-107); CHOLESTEROL 139 mg/dL (<200); CREATININE 0.94 mg/dL (0.70-1.30); HDL CHOLESTEROL 26 mg/dl (40-60); LDL CHOLESTEROL 33 mg/dL (9-159); SGOT/AST 14 IU/L (3-35); SGPT/ALT 18 U/L (12-78); SODIUM 137 mmol/L (136-145); TOTAL PROTEIN 7.8 gm/dL (6.4-8.2); TRIGLYCERIDES 402 mg/dl (<150); VLDL CHOLESTEROL 80 mg/dL (6-40)
== END | disposition home or self-care (01) ==
LOC: LAB 11:19
PROVIDERS: Nurse Practitioner Family
DX: I10 Essential (primary) hypertension (principal); E11.9 Type 2 diabetes mellitus without complications; E78.4 Other hyperlipidemia; E55.9 Vitamin D deficiency, unspecified; E66.01 Morbid (severe) obesity due to excess calories

== ENCOUNTER → 2017-11-25 | Outpatient (CLI) | payer MEDICARE ==
[~2017-11-25] MED LIST changes: +ASPIRIN ADULT L81 M2 PO; +ATORVASTATIN CA80 M1 PO; +BENZONATATE100 M1 PO; +DULCOLAX5 M1 PO; +HYDROCODONE-AC1 EAC1 PO
[2017-11-25 09:21] LABS: BUN 8 mg/dl (7-24); CREATININE 0.95 mg/dL (0.70-1.30)
== END | disposition home or self-care (01) ==
LOC: CT 10-14 10:00 → LAB 08:50 → CT 10:00
PROVIDERS: Internal Medicine Critical Care Medicine
DX: J92.9 Pleural plaque without asbestos (principal)

== ENCOUNTER → 2018-03-26 | Outpatient (CLI) | payer MEDICARE ==
[2018-03-26 09:04] LABS: BASO # 0.1 10*3/uL (0.0-0.1); BASO % 0.5 % (0.0-1.0); EOS % 0.1 % (1.0-4.0); HEMATOCRIT 48.9 % (42.0-52.0); HEMOGLOBIN 16.1 g/dl (14.0-18.0); LYMPH # 2.6 10*3/uL (1.3-4.4); LYMPH % 15.3 % (27.0-41.0); MEAN CELL VOLUME 89.7 fl (80.0-94.0); MEAN CORPUSCULAR HGB 29.5 pg (27.0-31.0); MEAN CORPUSCULAR HGB CONC 32.9 g/dl (33.0-37.0); MEAN PLATELET VOLUME 10.1 fl (9.6-12.3); MONO # 0.9 10*3/uL (0.1-1.0); MONO % 5.2 % (3.0-9.0); NEUT # 13.5 10*3/uL (2.3-7.9); NEUT % 78.4 % (47.0-73.0); PLATELET COUNT AUTOMATED 350 10*3/uL (130-400); RED BLOOD COUNT 5.45 10*6/uL (4.50-5.90); RED CELL DISTRI WIDTH 17.7 % (0-14.5); WHITE BLOOD COUNT 17.2 10*3/uL (4.8-10.8)
[2018-03-26 09:25] LABS: ALBUMIN 3.7 gm/dl (3.1-4.5); ALKALINE PHOSPHATASE 205 U/L (45-117); BUN 17 mg/dl (7-24); CHLORIDE 106 mmol/L (98-107); CHOLESTEROL 146 mg/dL (<200); CREATININE 1.09 mg/dL (0.70-1.30); HDL CHOLESTEROL 34 mg/dl (40-60); LDL CHOLESTEROL 73 mg/dL (9-159); POTASSIUM 4.3 mmol/L (3.5-5.1); SGOT/AST 14 IU/L (3-35); SGPT/ALT 32 U/L (12-78); SODIUM 139 mmol/L (136-145); TOTAL PROTEIN 7.9 gm/dL (6.4-8.2); TRIGLYCERIDES 197 mg/dl (<150); VLDL CHOLESTEROL 39 mg/dL (6-40)
== END ==
LOC: LAB 08:35
PROVIDERS: Nurse Practitioner Family
DX: I10 Essential (primary) hypertension (principal); E11.9 Type 2 diabetes mellitus without complications; J44.9 Chronic obstructive pulmonary disease, unspecified; E78.5 Hyperlipidemia, unspecified; R06.2 Wheezing; Z72.0 Tobacco use

== ENCOUNTER → 2018-11-03 | Outpatient (CLI) | payer MEDICARE | END | disposition home or self-care (01) | LOC: WOUNDCARE 02:38 | DX: L02.212 Cutaneous abscess of back [any part, except buttock and flank] (principal); L72.0 Epidermal cyst; E11.40 Type 2 diabetes mellitus with diabetic neuropathy, unspecified; I10 Essential (primary) hypertension; I25.10 Atherosclerotic heart disease of native coronary artery without angina pectoris; E78.00 Pure hypercholesterolemia, unspecified; F17.200 Nicotine dependence, unspecified, uncomplicated; Z79.4 Long term (current) use of insulin ==

== ENCOUNTER → 2018-11-10 | Outpatient (CLI) | payer MEDICARE | END | disposition home or self-care (01) | LOC: WOUNDCARE 03:32 | DX: L02.212 Cutaneous abscess of back [any part, except buttock and flank] (principal); L72.0 Epidermal cyst; E11.40 Type 2 diabetes mellitus with diabetic neuropathy, unspecified; E78.00 Pure hypercholesterolemia, unspecified; I25.10 Atherosclerotic heart disease of native coronary artery without angina pectoris; I10 Essential (primary) hypertension; F17.200 Nicotine dependence, unspecified, uncomplicated ==

== ENCOUNTER → 2019-01-13 | Outpatient (CLI) | payer MEDICARE | END | disposition home or self-care (01) | LOC: MRI 01-08 14:00 | DX: M54.5 Low back pain (principal); M12.88 Other specific arthropathies, not elsewhere classified, other specified site ==

== ENCOUNTER 2019-05-16 10:02 | Emergency (ER) | payer MEDICARE ==
[~2019-05-16] VITALS: Ht 182.8 cm; Wt 122.9 kg
[2019-05-16 10:02] VITALS: BP 146/85
[2019-05-16] MEDS ORDERED: CEPHALEXIN500 M1 PO (11:40)
== END 2019-05-16 11:45 | disposition home or self-care (01) ==
LOC: ED 10:02
DX: L03.116 Cellulitis of left lower limb (principal); G89.29 Other chronic pain; F17.200 Nicotine dependence, unspecified, uncomplicated; Z91.030 Bee allergy status; Z79.899 Other long term (current) drug therapy; Z79.82 Long term (current) use of aspirin; Z79.4 Long term (current) use of insulin

== ENCOUNTER 2019-06-09 13:47 | Inpatient (IN) | payer MEDICARE ==
[~2019-06-09] VITALS: Ht 180.3 cm; Wt 123.2 kg
[2019-06-09 13:50] VITALS: BP 125/75
[2019-06-09 14:34] LABS: BASO # 0.1 10*3/uL (0.0-0.1); BASO % 0.7 % (0.0-1.0); EOS # 0.5 10*3/uL (0.0-0.4); EOS % 4.1 % (1.0-4.0); HEMATOCRIT 47.3 % (42.0-52.0); HEMOGLOBIN 15.3 g/dl (14.0-18.0); LYMPH # 2.9 10*3/uL (1.3-4.4); LYMPH % 23.4 % (27.0-41.0); MEAN CELL VOLUME 89.4 fl (80.0-94.0); MEAN CORPUSCULAR HGB 28.9 pg (27.0-31.0); MEAN CORPUSCULAR HGB CONC 32.3 g/dl (33.0-37.0); MEAN PLATELET VOLUME 9.2 fl (9.6-12.3); MONO # 0.8 10*3/uL (0.1-1.0); MONO % 6.1 % (3.0-9.0); NEUT # 8.1 10*3/uL (2.3-7.9); NEUT % 65.2 % (47.0-73.0); PLATELET COUNT AUTOMATED 398 10*3/uL (130-400); RED BLOOD COUNT 5.29 10*6/uL (4.50-5.90); RED CELL DISTRI WIDTH 13.9 % (0-14.5); WHITE BLOOD COUNT 12.4 10*3/uL (4.8-10.8)
[2019-06-09 14:52] LABS: ALBUMIN 2.9 gm/dl (3.1-4.5); ALKALINE PHOSPHATASE 174 U/L (45-117); BUN 17 mg/dl (7-24); CHLORIDE 103 mmol/L (98-107); CREATININE 0.91 mg/dL (0.70-1.30); POTASSIUM 4.3 mmol/L (3.5-5.1); SGOT/AST 7 IU/L (3-35); SGPT/ALT 15 U/L (12-78); SODIUM 135 mmol/L (136-145); TOTAL PROTEIN 7.1 gm/dL (6.4-8.2)
--- NOTE | 2019-06-09 14:56 | NUR ---
NOTIFIED BY LAB PT LACTIC ACID 2.7. MICHAEL SWEET NOTIFIED.
[2019-06-09 14:59] VITALS: BP 124/74
[2019-06-09 16:31] VITALS: BP 122/70
[2019-06-09 16:40] VITALS: BP 112/56
--- NOTE | 2019-06-09 16:40 | NUR ---
A 54, admitted to , under the services of JAMMIE Mack DO with a diagnosis of SEPSIS,WOUND TO R FOOT. Chief complaint is SENT BY DR. PETERS. Patient arrived via wheel chair from ER. Monitor applied. Initial assessment completed. Vital signs taken and recorded. JAMMIE MACK DO notified of admission to the unit. Orders received. See assessment for past medical history, medications and allergies. Patient and/or family oriented to unit. [facility] visitation policy reviewed. Clothing/patient valuable form completed. ROSA JACKSON
--- NOTE | 2019-06-09 16:42 | NUR ---
PT REFUSED TO HAVE DRESSING REMOVED. PHOTOS AND WOUND CULTURE OBTAINED IN ER PER POLICY. PODIATRY EXAMINED FOOT IN ED. BULKY DRESSING D/I TO RIGHT FOOT.
[2019-06-09] MEDS ORDERED: Bactroban Oint22 GM T ×2 (16:43→17:53)
[2019-06-09] MEDS ORDERED: SEPTDS PO (16:45)
[2019-06-09] MEDS ORDERED: SEROQUEL300 MG PO (16:56)
[2019-06-09] MEDS ORDERED: QUETIAPINE FUM300 M1 PO (16:56)
[2019-06-09] MEDS ORDERED: VITAMIN D5000 UNI1 PO (17:02)
[2019-06-09] MEDS ORDERED: BUSPAR5 MG PO (17:03)
[2019-06-09] MEDS ORDERED: CYMBALTA60 MG PO (17:04)
[2019-06-09 17:15] VITALS: BP 112/56
[2019-06-09] MEDS ORDERED: BENZTROPINE MESY1 MG PO (17:56)
[2019-06-09] MEDS ORDERED: OZEMPIC1 MG/0.75 SQ (17:58)
[2019-06-09] MEDS ORDERED: ZOCOR20 MG PO (17:59)
[2019-06-09] MEDS ORDERED: JARDIANCE25 MG PO (18:00)
[2019-06-09] MEDS ORDERED: Percocet 325 MG1 TAB PO (18:02)
[2019-06-09] MEDS ORDERED: BELSOMRA15 MG PO (18:07)
--- NOTE | 2019-06-09 18:16 | NUR ---
ID CALLED AT THIS TIME REGARDING CONSULT.
[2019-06-09 20:00] VITALS: BP 140/71
--- NOTE | 2019-06-09 21:43 | NUR ---
PATIENT MEDICATED WITH PERCOCET FOR COMPLAINTS OF RIGHT FOOT PAIN. BLOOD GLUCOSE AT THIS TIME IS 173. PATIENT REFUSING COVERAGE D/T GOING TO BE NPO AFTER MIDNIGHT. RESPIRATIONS REGULAR AND NON-LABORED. LUNGS DIMINISHED ON RA. AMBULATES TO BATHROOM PER SELF. WILL CONTINUE TO MONITOR. CALL LIGHT IN REACH.
--- NOTE | 2019-06-09 22:26 | NUR ---
DR. GOFF NOTIFIED THAT PATIENT DOESN'T TAKE XANAX ANYMORE PER PATIENT SO ORDER WAS D/C'D.
[2019-06-10] VITALS (10 sets, daily range): BP systolic 107–152; BP diastolic 61–73
--- NOTE | 2019-06-10 05:44 | NUR ---
ANTOLIN RICKETTS [id number] Please refer to the physician's history and physical for past medical history, comorbid conditions, and allergies. Diagnosis: CHARCOT FOOT DUE TO DIABETES MELLITUS Brown Score: 17,AT RISK WOUND DESCRIPTIONS: Patient states this wound has been there for about one month and that he follows with podiatry out on [place] with Dr. Ramirez. He stated he is set up for surgery today and that podiatry did his dressing in the ER yesterday. No strikethrough draiange noted at time of assessment. No odor noted at time of assessment. Patient stated he will continue to follow up with podiatry upon discharge. Surface the patient is resting on: Isoflex SKIN PREVENTION RECOMMENDATION: 1. Pressure redistribution support surface as appropriate 2. Elevate heels 3. Remove boots/TEDS every shift and reapply 4. Head of bed 30 degrees as tolerated 5. Assess nutrition and hydration 6. Manage moisture 7. Avoid the use of containment devices while in bed 8. Use absorptive products on surfaces limit layers of linens on bed 9. Turn and reposition every 1-2 hours in bed and every 1 hour in chair as tolerated 10. Weight shifts every 15 minutes while up in chair 11. Offloading with pillows or device to keep heels elevated off bed 12. Monitor skin at least every shift 13. Inspect under medical devices twice a day WOUND TREATMENT RECOMMENDATIONS: Await podiatry post op orders for right foot.
[2019-06-10 06:53] LABS: BASO # 0.1 10*3/uL (0.0-0.1); BASO % 0.9 % (0.0-1.0); EOS # 0.6 10*3/uL (0.0-0.4); EOS % 5.6 % (1.0-4.0); HEMATOCRIT 45.2 % (42.0-52.0); HEMOGLOBIN 14.5 g/dl (14.0-18.0); LYMPH # 3.1 10*3/uL (1.3-4.4); LYMPH % 27.3 % (27.0-41.0); MEAN CELL VOLUME 89.5 fl (80.0-94.0); MEAN CORPUSCULAR HGB 28.7 pg (27.0-31.0); MEAN CORPUSCULAR HGB CONC 32.1 g/dl (33.0-37.0); MEAN PLATELET VOLUME 9.3 fl (9.6-12.3); MONO # 0.7 10*3/uL (0.1-1.0); MONO % 5.9 % (3.0-9.0); NEUT # 6.9 10*3/uL (2.3-7.9); NEUT % 59.9 % (47.0-73.0); PLATELET COUNT AUTOMATED 344 10*3/uL (130-400); RED BLOOD COUNT 5.05 10*6/uL (4.50-5.90); WHITE BLOOD COUNT 11.5 10*3/uL (4.8-10.8)
[2019-06-10 07:25] LABS: BUN 14 mg/dl (7-24); CHLORIDE 108 mmol/L (98-107); CREATININE 0.71 mg/dL (0.70-1.30); PHOSPHOROUS 4.4 mg/dL (2.5-4.9); POTASSIUM 3.6 mmol/L (3.5-5.1); SODIUM 140 mmol/L (136-145)
--- NOTE | 2019-06-10 08:09 | NUR ---
Nursing screen completed and Occupational Therapy evaluation received. Thank you. Anabela Rosa OTR/l
--- NOTE | 2019-06-10 08:15 | NUR ---
PHYSICAL THERAPY Nursing screen and PT referral received. Thank you Crissy Crump, PT, DPT
[2019-06-10 08:56] LABS: VITAMIN D, 25-HYDROXY 50.4 ng/mL (30-100)
--- NOTE | 2019-06-10 08:56 | NUR ---
PHYSICAL THERAPY Pt peacefully sleeping at therapist entry. Per nursing, Pt has a rebound airwalker boot for ambulation given by podiatry; unsure of compliance with using boot. Spoke with Dr. Perla who recommended seeing patient after surgery later this afternoon. Per chart review, Pt pending to have R foot surgery around 4 PM on 06/10/19; scheduled for I &D, bone biopsy and external fixator. Pt will be seen post op and when medically stable. Thank you Crissy Crump, PT, DPT
--- NOTE | 2019-06-10 09:00 | NUR ---
Rn Chemical Dependency in to talk to patient. Patient states lives at home with son. There are few steps in the home. Physician: palomo greenberg [facility] Home health services: none Patient's level of ADLs: MINIMAL ASSIST Patient has working utilities: all working DME: nebulizer, home oxygen used at hs Follow-up physician's appointment after d/c: will be made by hospitalist nurse director upon discharge Does patient want to access PORTAL?: no Discharge plan discussed with patient, he lives at home with son, states she is independent in adls and mininal assist with ambulation, discussed with him a short term custodial if he would need iv antibiotics and dressing changes, he was agreeable, given choice of facilities he chose [facility], senior program planner will make referral to [facility] for when patient is medically stable for discharge. ALO MCWILLIAMS
--- NOTE | 2019-06-10 09:03 | NUR ---
Occupational Therapy referral received. Spoke with referring physician; Dr Perla, who reported that patient was to have surgery today and he sent referral for OT/PT for post-op evaluation/treatment. OTR to proceed with OT evaluation 06/11/19. Anabela Rosa OTR/l
--- NOTE | 2019-06-10 11:38 | NUR ---
BLOOD SUGAR 137. PATIENT REMAINS NPO FOR SCHEDULED SURGERY.
--- NOTE | 2019-06-10 13:38 | NUR ---
PT MEDICATED WITH IV MORPHINE PER PRN ORDER FOR C/O RIGHT FOOT PAIN. RATES PAIN 03/06. WILL MONITOR EFFECTIVENESS.
--- NOTE | 2019-06-10 14:30 | NUR ---
MORPHINE EFFECTIVE PER PT.
--- NOTE | 2019-06-10 15:29 | NUR ---
PATIENT OFF FLOOR FOR SCHEDULED PROCEDURE.
--- NOTE | 2019-06-10 16:50 | NUR ---
PATIENT'S WOUND DRESSING WAS ON UNTIL IN THE OR ROOM. WAS UNABLE TO TAKE PRE-OP PICTURE IN OR. DOCTORS STARTED PROCEDURE BEFORE POSSIBILITY OF TAKING PICTURE.
--- NOTE | 2019-06-10 19:24 | NUR ---
REPORT RECEIVED FROM KATE HUNT IN OR FROM SURGERY. PATIENT'S VITAL SIGNS ARE STABLE AND PATIENT WILL BE RETURNING TO THE FLOOR. WOUND VAC WAS UNABLE TO BE APPLIED D/T TOO MUCH DRAINAGE SO WOUND IS PACKED. WILL BE HERE TOMORROW TO APPLY WOUND VAC. PATIENT IS NWB TO RLE. WILL ASSESS ON RETURN.
--- NOTE | 2019-06-10 19:46 | NUR ---
PATIENT RETURNED TO FLOOR WITH EXTERNAL FIXATOR ON. DENIES COMPLAINTS OF PAIN OR DISCOMFORT AT THIS TIME BUT REQUESTING PERCOCET. PERCOCET GIVEN AND CALIBRATION TECHNICIAN PODIATRY DOCTOR SAID IF FOOT WOUND DRAINS TOO MUCH TO JUST KEEP REINFORCING THE DRESSING UNTIL TOMORROW MORNING WHEN THEY COME IN AND APPLY THE WOUND VAC. VSS. WILL CONTINUE TO MONITOR. CALL LIGHT IN REACH.
--- NOTE | 2019-06-10 21:54 | NUR ---
PATIENT MEDICATED WITH MORPHINE FOR COMPLAINTS OF RIGHT FOOT AND LEG PAIN. ALSO GIVEN A BOXED LUNCH AND SNACKS. NO SIGNS OR SYMPTOMS OF DISTRESS NOTED. WILL CONTINUE TO MONITOR. CALL LIGHT IN REACH.
[2019-06-11] VITALS: BP 139/70
--- NOTE | 2019-06-11 02:58 | NUR ---
MEDICATED WITH PERCOCET FOR COMPLAINTS OF LOWER RIGHT LEG PAIN. WILL CONTINUE TO MONITOR. DRESSING TO LEG DRY AND INTACT.
[2019-06-11 06:16] LABS: BASO # 0.1 10*3/uL (0.0-0.1); BASO % 0.8 % (0.0-1.0); EOS # 0.5 10*3/uL (0.0-0.4); EOS % 3.5 % (1.0-4.0); HEMATOCRIT 42.7 % (42.0-52.0); HEMOGLOBIN 13.8 g/dl (14.0-18.0); LYMPH # 2.9 10*3/uL (1.3-4.4); LYMPH % 21.4 % (27.0-41.0); MEAN CELL VOLUME 89.3 fl (80.0-94.0); MEAN CORPUSCULAR HGB 28.9 pg (27.0-31.0); MEAN CORPUSCULAR HGB CONC 32.3 g/dl (33.0-37.0); MEAN PLATELET VOLUME 9.6 fl (9.6-12.3); MONO # 0.8 10*3/uL (0.1-1.0); MONO % 5.8 % (3.0-9.0); NEUT # 9.2 10*3/uL (2.3-7.9); NEUT % 68.1 % (47.0-73.0); PLATELET COUNT AUTOMATED 368 10*3/uL (130-400); RED BLOOD COUNT 4.78 10*6/uL (4.50-5.90); RED CELL DISTRI WIDTH 13.9 % (0-14.5); WHITE BLOOD COUNT 13.6 10*3/uL (4.8-10.8)
[2019-06-11 06:41] LABS: BUN 10 mg/dl (7-24); CHLORIDE 109 mmol/L (98-107); CREATININE 0.79 mg/dL (0.70-1.30); POTASSIUM 3.8 mmol/L (3.5-5.1); SODIUM 139 mmol/L (136-145)
[2019-06-11 06:55] LABS: VANCOMYCIN TROUGH 30.3 ug/mL (10-20)
--- NOTE | 2019-06-11 06:56 | NUR ---
DR. GOFF NOTIFIED OF CRITICAL VANCO TROUGH OF 30.3.
[2019-06-11 08:00] VITALS: BP 132/64
--- NOTE | 2019-06-11 08:02 | NUR ---
Referral was faxed to [facility], upon review, [facility] stating they cannot accept this patient, they are unable to meet patients needs. [facility] does not have any availability. Initial referral faxed to [facility] for review. Waiting on review.
--- NOTE | 2019-06-11 08:25 | NUR ---
Occupational Therapy evaluation completed on 4 with full eval to follow. Precautions include NWB RLE,external fixator RLE,impulsive,IV UE,ww use,moderate complexity level 94709 via chart review, testing and evaluation. REcommend OT per POC and SNF to enable return home at safe level w/ RLE complete NWB. Thank you. Anabela Rosa OTr/L
--- NOTE | 2019-06-11 08:31 | NUR ---
PHYSICAL THERAPY Physical therapy evaluation completed, 4E. Full details and evaluation to follow. Moderate complexity determined after evaluation/chart review, 369[address]. PT to work on endurance, strength, balance, gait, transfers, safety and energy conservation with all functional mobility. Recommending SNF at discharge. Thank you Crissy Crump, PT, DPT
--- NOTE | 2019-06-11 09:00 | NUR ---
In to see patient to explain that [facility] has stated they are unable to accept him. I also explained that our medical team and wound care team go to [facility] and asked if it would be ok to send his referral there. Patient was in agreement. Referral faxed. Waiting on review.
--- NOTE | 2019-06-11 09:13 | NUR ---
PT REQUESTED AND MEIDCATED WITH PERCOCET FOR C/O RLE PAIN. CALL LIGHT IN REACH. WILL MONITOR
--- NOTE | 2019-06-11 10:15 | NUR ---
MEDICATION EFFECTIVE PER PT. CALL LIGHT IN REACH. WILL MONITOR
--- NOTE | 2019-06-11 11:02 | NUR ---
PT REQUESTED AND WAS MEDICATED WITH PERCOCET FOR C/O RLE PAIN. CALL LIGHT IN REACH. WILL MONITOR
--- NOTE | 2019-06-11 11:46 | NUR ---
Faxed PT and OT evals and wound vac information faxed to anne at [facility]. patient requires precert.
--- NOTE | 2019-06-11 11:56 | NUR ---
PODITARY HERE AND UNWRAPPED RLE. WOUND PHOTO TAKEN. PODITARY TO REDRESS WOUND TO RLE.
[2019-06-11 12:00] VITALS: BP 132/73
--- NOTE | 2019-06-11 14:00 | NUR ---
PT REQUESTED AND WAS MEDICATED WITH MOTRIN FOR C/O RIGHT FOOT 01/04 PAIN. CALL LIGHT IN REACH. WILL MONITOR.
[2019-06-11 16:00] VITALS: BP 151/83
--- NOTE | 2019-06-11 16:06 | NUR ---
WOUND VAC APPLIED BY PODITARY. PT TOLERATED WELL. WILL MONITOR
--- NOTE | 2019-06-11 19:30 | NUR ---
24 HOUR CHART CHECK COMPLETE
[2019-06-11 20:00] VITALS: BP 127/59
--- NOTE | 2019-06-11 21:15 | NUR ---
WOUND VAC ALARMING LEAK AT THIS TIME, DRESSING REMOVED AND WOUND VAC SITE ASSESSED AND EXTRA OPSITE APPLIED TO SECURE AND LEAK RESOLVED. DRESSING REAPPLIED WITHOUT INCIDENT. WILL CONTINUE TO MONITOR.
[2019-06-12] VITALS: BP 121/63
--- NOTE | 2019-06-12 04:10 | NUR ---
PATIENT RESTING IN BED IN A POSITION OF COMFORT AT THIS TIME, NO SIGNS OR SYMPTOMS OF DISTRESS NOTED AT THIS TIME, RESPIRATIONS EASY AND NON-LABORED AT THIS TIME. WOUND VAC INTACT AND FUNCTIONING WITHOUT INCIDENT AT THIS TIME. CALL LIGHT WITHIN REACH, WILL CONTINUE TO MONITOR.
--- NOTE | 2019-06-12 04:35 | NUR ---
RESTING IN BED IN A POSITION OF COMFORT AT THIS TIME. WOUND VAC INTACT AND FUNCTIONING WITHOUT INCIDENT. CALL LIGHT WITHIN REACH, WILL CONTINUE TO MONITOR.
[2019-06-12 06:16] LABS: BASO # 0.1 10*3/uL (0.0-0.1); EOS # 0.5 10*3/uL (0.0-0.4); EOS % 5.5 % (1.0-4.0); HEMATOCRIT 41.6 % (42.0-52.0); HEMOGLOBIN 13.3 g/dl (14.0-18.0); LYMPH # 2.7 10*3/uL (1.3-4.4); LYMPH % 28.6 % (27.0-41.0); MEAN CELL VOLUME 89.3 fl (80.0-94.0); MEAN CORPUSCULAR HGB 28.5 pg (27.0-31.0); MEAN PLATELET VOLUME 9.3 fl (9.6-12.3); MONO # 0.7 10*3/uL (0.1-1.0); MONO % 7.4 % (3.0-9.0); NEUT # 5.3 10*3/uL (2.3-7.9); NEUT % 57.2 % (47.0-73.0); PLATELET COUNT AUTOMATED 346 10*3/uL (130-400); RED BLOOD COUNT 4.66 10*6/uL (4.50-5.90); RED CELL DISTRI WIDTH 14.2 % (0-14.5); WHITE BLOOD COUNT 9.3 10*3/uL (4.8-10.8)
[2019-06-12 06:17] LABS: BUN 14 mg/dl (7-24); CHLORIDE 108 mmol/L (98-107); CREATININE 0.88 mg/dL (0.70-1.30); SODIUM 139 mmol/L (136-145)
[2019-06-12 08:00] VITALS: BP 117/64
[2019-06-12 12:00] VITALS: BP 133/76
--- NOTE | 2019-06-12 13:33 | NUR ---
WOUND VAC ALARMING- BLOCKAGE. OUTSIDE JUDY WRAP AND LUCINA REMOVED. BLOOD CLOT NOTED TO TUBING AT WOUND SITE. DR TRUJILLO CALLED AND NOTIFIED. HE STATES HE WILL CALL ME BACK AFTER HE SPEAKS WITH HIS ATTENDING. WILL AWAIT RETURN CALL.
--- NOTE | 2019-06-12 13:50 | NUR ---
DR TRUJILLO CALLED AND ASKED WOUND VAC DRSG TO BE REMOVED AND DSD TO BE APPLIED. HE STATES HE WILL BE IN TO SEE PT. WOUND VAC DRSG REMOVED- LARGE CLOT NOTED TO WOUND VAC TUBING AT TRACK PAD. DSD APPLIED. PT TOLERATED WELL. CALL LIGHT IN REACH. WILL MONITOR
--- NOTE | 2019-06-12 15:28 | NUR ---
DR TRUJILLO IN TO SEE PT. HE APPLIED NEW DRESSING. HE STATES IF THIS DRSG HAPPENS TO BLEED THROUGH TO REINFORCE IT UNTIL TOMORROW.
[2019-06-12 16:00] VITALS: BP 145/76
[2019-06-12 16:09] LABS: ACID FAST SPEC PROCESSING Tissue Grinding (.)
[2019-06-12 16:09] LABS: ACID FAST SPEC PROCESSING Tissue Grinding (.)
[2019-06-12 20:00] VITALS: BP 158/73
--- NOTE | 2019-06-12 20:10 | NUR ---
PATIENT ASSESSMENT COMPLETED AT THIS TIME. PATIENT DENIED ANY CHEST PAIN OR SHORTNESS OF BREATH AT THIS TIME. CALL LIGHT WITHIN REACH WILL CONTINUE TO MONITOR
[2019-06-13] VITALS: BP 103/48
--- NOTE | 2019-06-13 00:15 | NUR ---
PATIENT RESTING IN BED IN A POSITION OF COMFORT WATCHING TV AT THIS TIME. DENIES ANY DISTRESS OR NEEDS AT THIS TIME. CALL LIGHT WITHIN REACH WILL CONTINUE TO MONITOR.
[2019-06-13 05:35] LABS: BASO # 0.1 10*3/uL (0.0-0.1); BASO % 0.9 % (0.0-1.0); EOS # 0.6 10*3/uL (0.0-0.4); EOS % 6.1 % (1.0-4.0); HEMATOCRIT 40.6 % (42.0-52.0); HEMOGLOBIN 13.5 g/dl (14.0-18.0); LYMPH # 2.6 10*3/uL (1.3-4.4); LYMPH % 27.5 % (27.0-41.0); MEAN CELL VOLUME 88.5 fl (80.0-94.0); MEAN CORPUSCULAR HGB 29.4 pg (27.0-31.0); MEAN CORPUSCULAR HGB CONC 33.3 g/dl (33.0-37.0); MEAN PLATELET VOLUME 9.8 fl (9.6-12.3); MONO # 0.7 10*3/uL (0.1-1.0); MONO % 6.8 % (3.0-9.0); NEUT # 5.6 10*3/uL (2.3-7.9); NEUT % 58.5 % (47.0-73.0); PLATELET COUNT AUTOMATED 352 10*3/uL (130-400); RED BLOOD COUNT 4.59 10*6/uL (4.50-5.90); RED CELL DISTRI WIDTH 14.1 % (0-14.5); WHITE BLOOD COUNT 9.6 10*3/uL (4.8-10.8)
[2019-06-13 05:49] LABS: BUN 9 mg/dl (7-24); CHLORIDE 107 mmol/L (98-107); CREATININE 0.78 mg/dL (0.70-1.30); POTASSIUM 4.2 mmol/L (3.5-5.1); SODIUM 140 mmol/L (136-145)
[2019-06-13 08:00] VITALS: BP 112/68
--- NOTE | 2019-06-13 10:00 | NUR ---
DR TRUJILLO IN TO SEE PT, HE APPLIED WOUND VAC. PT TOLERATED WELL.
[2019-06-13 12:00] VITALS: BP 142/70
[2019-06-13 16:00] VITALS: BP 172/85
[2019-06-13 20:00] VITALS: BP 148/73
[2019-06-14] VITALS: BP 122/72
--- NOTE | 2019-06-14 02:09 | NUR ---
PT ASLEEP IN BED. RESPIRATIONS EASY. NO S/S OF DISTRESS NOTED. WILL MONITOR. CALL LIGHT LEFT IN REACH. WOUND VAC IN USE WITHOUT ISSUE.
--- NOTE | 2019-06-14 03:27 | NUR ---
PT MEDICATED WITH PO PERCOCET PER PRN ORDER FOR C/O PAIN IN RLE RATED 7/10. WILL MONITOR EFFECTIVENESS. CALL LIGHT IN REACH.
[2019-06-14 05:59] LABS: BASO # 0.1 10*3/uL (0.0-0.1); BASO % 1.2 % (0.0-1.0); EOS # 0.6 10*3/uL (0.0-0.4); EOS % 6.8 % (1.0-4.0); HEMATOCRIT 44.2 % (42.0-52.0); HEMOGLOBIN 14.1 g/dl (14.0-18.0); LYMPH # 2.9 10*3/uL (1.3-4.4); LYMPH % 31.9 % (27.0-41.0); MEAN CELL VOLUME 88.9 fl (80.0-94.0); MEAN CORPUSCULAR HGB 28.4 pg (27.0-31.0); MEAN CORPUSCULAR HGB CONC 31.9 g/dl (33.0-37.0); MEAN PLATELET VOLUME 9.5 fl (9.6-12.3); MONO # 0.7 10*3/uL (0.1-1.0); MONO % 7.3 % (3.0-9.0); NEUT # 4.8 10*3/uL (2.3-7.9); NEUT % 52.5 % (47.0-73.0); PLATELET COUNT AUTOMATED 371 10*3/uL (130-400); RED BLOOD COUNT 4.97 10*6/uL (4.50-5.90); RED CELL DISTRI WIDTH 14.2 % (0-14.5); WHITE BLOOD COUNT 9.1 10*3/uL (4.8-10.8)
[2019-06-14 06:01] LABS: BUN 8 mg/dl (7-24); CHLORIDE 106 mmol/L (98-107); CREATININE 0.69 mg/dL (0.70-1.30); POTASSIUM 4.1 mmol/L (3.5-5.1); SODIUM 139 mmol/L (136-145)
[2019-06-14 08:00] VITALS: BP 130/92
--- NOTE | 2019-06-14 08:15 | NUR ---
CYNTHIA FROM SURGERY HERE TO INSERT A PICC LINE, CONSENT OBTAINED BY ELECTRICIAN MARINE, JONN BENÍTEZ [facility]
--- NOTE | 2019-06-14 08:20 | NUR ---
PT RESTING IN BED. RESP-EASY AND REGULAR. PT DRESSING INTACT. WOUND VAC INTACT. NO C/O AT THIS TIME. LUNGS DIMINSHED T/O. BLE/FOOT EDEMA. CALL LIGTH IN REACH. WILL CON'T TO MONITOR.
--- NOTE | 2019-06-14 09:00 | NUR ---
case management visits with patient, he states he will be going to [facility] when medically stable, case mangement will follow
--- NOTE | 2019-06-14 09:30 | NUR ---
PICC LINE INSERTED, CXR ORDERED JONN BENÍTEZ SPNRCC
--- NOTE | 2019-06-14 09:35 | NUR ---
PHYSICAL THERAPY Patient seen this am 1:1 for therapy visit and was sitting up on EOB upon therapist arrival. Patient identified by name / and reports having had an attempted PICC line placement a few minutes ago. Patient stated that they were unable to complete insertion and will be coming back later this am to re-attempt. Patient voices no new c/o's and presents with R LE multi external fixator secondary to Charcot DX. Patient is NWB on R LE and informed therapist that he also has a L ankle lace up brace, including custom high top shoe that he wears for support. Patient needed assistance with donning both L LE brace / shoe and completed several sit to stand transfers at bedside, MIN A for initial transfer then CGA for all remaining transfers. Patient able to complete SPT to BSC, use of wh walker standing support, CGA, demonstrating several bouts of impulsive behaviour, requiring v/c for proper hand placemnt prior to sitting. Patient demonstrated improved technique folloiwng instruction and would benefit from SNF to improve standing activity tolerance, transfers and mobility. Patient returned to EOB sit and remained with call light, tray table and telephone. Will continue per POC as tolerated, total treatment time 16 minutes. Sergio Cochran, CAD LIBRARIAN
--- NOTE | 2019-06-14 09:52 | NUR ---
OT NOTE PATIENT SEEN OT 19 MINUTES THIS DATE. PATIENT IDENTIFIED BY NAME AND DATE OF . PATIENT SEATED EOB THIS DATE. PATIENT COMPLETED SIT TO STAND FROM BED MIN A COMPLETING STATIC STAND TOLERANCE CGA USE FWW SUPPORT MIN VERBAL CUES FACILIATE RLE NWB WITH STAND TOLERANCE 5 MINUTES THIS DATE. PATIENT COMPLETED STAND PIVOT TRANSFER MIN A USE FWW TO AND FROM BED TO BEDSIDE COMMODE WITH WOUND VAC WITH MOD VERBAL CUES SAFETY SECONDARY IMPULSIVITY AND MAINTAIN RLE NWB. PATIENT EDUCATED PROPER BODY MECHANICS, PACING SELF AND SAFETY REACHING FOR ARM REST FOR FALL PREVENTION WITH FURTHER NEED EDUCATION FOR PROPER FACILITATION DURING TRANSFER TASKS. PATIENT COMPLETED UB DRESSING SEATED SBA AFTER ROTH AND LB DRESSSING MIN A SEATED EOB. PATIENT SEATED EOB WITH CALL LIGTH WITHIN REACH. ARCADIO OBRIEN/Felix
[2019-06-14 10:00] VITALS: BP 140/82
--- NOTE | 2019-06-14 10:34 | NUR ---
PT C/O RIGHT FOOT PAIN, RATES PAIN 8 ON PAIN SCALE 0-10. MEDICATED WTIH PERCOCET PO PER PRN ORDER, SEE EMAR. CALL LIGHT IN REACH.
--- NOTE | 2019-06-14 10:36 | NUR ---
PATIENT MOVES TOES WELL TO RIGHT FOOT, TOES PINK, WARM, AND DRY HAS CAP REFILL OF LESS THAN 3 SECONDS FOOT ELEVATED WHILE IN BED. RYLEY SOTO SPNRCC
--- NOTE | 2019-06-14 10:38 | NUR ---
SURGERY HERE TO REPOSITION PICC LINE. CXR WILL BE REPEATED. [facility]
--- NOTE | 2019-06-14 10:42 | NUR ---
Updated therapy notes and clinicals faxed to [facility], chuckyert was started, waiting on auth.
--- NOTE | 2019-06-14 11:00 | NUR ---
PT PLACED IN CONTACT ISOLATION DUE TO WOUND CULTURES JONN JEYSON BEEBECC
--- NOTE | 2019-06-14 11:29 | NUR ---
PODIATRY WAS IN TO SEE PT. OK TO DISCHARGE PER THEIR STANDPOINT.
[2019-06-14 12:00] VITALS: BP 155/75
--- NOTE | 2019-06-14 12:43 | NUR ---
Patient has received auth for [facility] and they have a wound vac. Patient is ok to go if medically stable for discharge. [facility] was notified patient requires an isolation room.
[2019-06-14] MEDS ORDERED: BELSOMRA15 MG PO (13:11)
[2019-06-14] MEDS ORDERED: XANAX1 MG PO (13:11)
[2019-06-14] MEDS ORDERED: Percocet 325 MG1 TAB PO (13:11)
[2019-06-14] MEDS ORDERED: VANCOMYCIN2 GM/500 M IV (13:15)
--- NOTE | 2019-06-14 13:40 | NUR ---
Patient has received auth for [facility] and is discharged. Discussed transportation with patient who stated he will call his friend to transport as he is comfortable riding in a car. I discussed with GILBERT Staton that wound vac should just be disconnected leaving foam in place so the new wound vac can be reconnected at the facility.
--- NOTE | 2019-06-14 13:47 | NUR ---
IV REMOVED FROM RIGHT HAND, SITE ASYMPTOMATIC, PT ANXIOUS FOR DISCHARGE JONN BENÍTEZ SPNRCC
--- NOTE | 2019-06-14 14:50 | NUR ---
PT ESCORTED VIA WHEELCHAIR WITH FAMILY TO [facility]. PICC LINE LEFT IN RIGHT ARM, PLACED TODAY, SNF AWARE. WOUND VAC CLAMPED AND THEY HAVE MACHINE TO HOOK PT BACK UP WHEN HE ARRIVES. Discharge instructions reviewed with patient/family. Patient receptive and verbalizes understanding. Follow-up care arranged. Written instructions given to patient/family. KINSEY PEPE R
--- NOTE | 2019-06-14 14:58 | NUR ---
CALLED ANIKET FAMILY MEMBER OF PT, SHE IS AWARE PT FORGOT HIS PODIATRY BOOT. LEAVING AT DESK IN A BAG AND SHE WILL PICK IT UP TOMORROW.
--- NOTE | 2019-06-15 07:47 | NUR ---
PHYSICAL THERAPY CO-SIGN I approve of the Physical Therapy notes written above. Radha Ac PT
--- NOTE | 2019-06-15 15:45 | NUR ---
OCCUPATIONAL THERAPY CO-SIGN I approve of the Occupational Therapy notes written above. SUJATA MASON OTR/Felix
[2019-06-23] MEDS ORDERED: DOXYCYCLINE100 M3 PO (08:38)
[2019-06-23] MEDS ORDERED: TRAMADOL HCL50 MG PO (08:38)
[2019-06-23] MEDS ORDERED: XARELTO10 MG PO (08:39)
== END 2019-06-14 15:13 | disposition other institution (70) | DRG 854 ==
LOC: ED 13:47 → EDHOLD 15:23 → 4E 15:23 → EDHOLD 15:58 → 4E 16:06
PROVIDERS: Family Medicine; Internal Medicine; Physician Assistant; Podiatrist; ADMIT Internal Medicine
DX: A41.9 Sepsis, unspecified organism (principal); E44.0 Moderate protein-calorie malnutrition; E87.1 Hypo-osmolality and hyponatremia; L03.115 Cellulitis of right lower limb; M86.8X7 Other osteomyelitis, ankle and foot; E11.610 Type 2 diabetes mellitus with diabetic neuropathic arthropathy; R65.20 Severe sepsis without septic shock; G47.33 Obstructive sleep apnea (adult) (pediatric); J44.9 Chronic obstructive pulmonary disease, unspecified; R70.0 Elevated erythrocyte sedimentation rate; I10 Essential (primary) hypertension; E78.5 Hyperlipidemia, unspecified; K21.9 Gastro-esophageal reflux disease without esophagitis; I25.10 Atherosclerotic heart disease of native coronary artery without angina pectoris; M10.9 Gout, unspecified; E11.42 Type 2 diabetes mellitus with diabetic polyneuropathy; E66.9 Obesity, unspecified; E11.69 Type 2 diabetes mellitus with other specified complication; R74.8 Abnormal levels of other serum enzymes; B95.62 Methicillin resistant Staphylococcus aureus infection as the cause of diseases classified elsewhere; M24.574 Contracture, right foot; R79.82 Elevated C-reactive protein (CRP); E11.65 Type 2 diabetes mellitus with hyperglycemia; F17.210 Nicotine dependence, cigarettes, uncomplicated; S92.901A Unspecified fracture of right foot, initial encounter for closed fracture; X58.XXXA Exposure to other specified factors, initial encounter; Y93.89 Activity, other specified; Y92.89 Other specified places as the place of occurrence of the external cause; Y99.8 Other external cause status; Z71.6 Tobacco abuse counseling; Z79.4 Long term (current) use of insulin; Z91.030 Bee allergy status; Z95.5 Presence of coronary angioplasty implant and graft; Z83.3 Family history of diabetes mellitus; Z82.3 Family history of stroke; Z82.49 Family history of ischemic heart disease and other diseases of the circulatory system; I25.2 Old myocardial infarction; Z79.82 Long term (current) use of aspirin; Z79.899 Other long term (current) drug therapy; Z68.37 Body mass index [BMI] 37.0-37.9, adult

== ENCOUNTER → 2019-06-23 | Day surgery (SDC) | payer MEDICARE ==
[~2019-06-23] VITALS: Ht 177.8 cm; Wt 131.5 kg
[~2019-06-23] MED LIST changes: +BELSOMRA15 MG PO; +BENZTROPINE MESY1 MG PO; +BUSPAR5 MG PO; +Bactroban Oint22 GM T; +CYMBALTA60 MG PO; +OZEMPIC1 MG/0.75 SQ; +Percocet 325 MG1 TAB PO; +QUETIAPINE FUM300 M1 PO; +SEPTDS PO; +SEROQUEL300 MG PO; +VANCOMYCIN2 GM/500 M IV; +VITAMIN D5000 UNI1 PO; +XARELTO10 MG PO
[2019-06-23 06:56] VITALS: BP 126/78
[2019-06-23 08:24] VITALS: BP 137/74
[2019-06-23 08:39] VITALS: BP 122/74
[2019-06-23 08:54] VITALS: BP 131/91
[2019-06-23 09:24] VITALS: BP 162/84
[2019-06-24 16:07] LABS: ACID FAST SPEC PROCESSING Tissue Grinding (.)
== END | disposition home or self-care (01) ==
LOC: SDC 06-21 14:00
PROVIDERS: Podiatrist
DX: L97.512 Non-pressure chronic ulcer of other part of right foot with fat layer exposed (principal); I10 Essential (primary) hypertension; E11.621 Type 2 diabetes mellitus with foot ulcer; K21.9 Gastro-esophageal reflux disease without esophagitis; G47.30 Sleep apnea, unspecified; E11.65 Type 2 diabetes mellitus with hyperglycemia; J44.9 Chronic obstructive pulmonary disease, unspecified; E66.9 Obesity, unspecified; Z68.41 Body mass index [BMI] 40.0-44.9, adult; Z98.890 Other specified postprocedural states; Z87.891 Personal history of nicotine dependence; Z83.3 Family history of diabetes mellitus; Z82.49 Family history of ischemic heart disease and other diseases of the circulatory system

== ENCOUNTER → 2019-07-15 | Day surgery (SDC) | payer MEDICARE ==
[~2019-07-15] VITALS: Ht 180.3 cm; Wt 131.5 kg
[~2019-07-15] MED LIST changes: +MAPAP EXTRA ST500 MG PO; +MOM30 M1 PO; +NOVOLOG FL100 UNIT/2 SQ; +PERCOCET 5-3251 EACH PO
[2019-07-15 07:14] VITALS: BP 156/85
[2019-07-15 08:14] VITALS: BP 156/79
[2019-07-15 08:29] VITALS: BP 169/94
[2019-07-15 08:43] VITALS: BP 152/90
== END | disposition home or self-care (01) ==
LOC: SDC 07-12 09:30
DX: Z47.89 Encounter for other orthopedic aftercare (principal); I11.0 Hypertensive heart disease with heart failure; I50.9 Heart failure, unspecified; K21.9 Gastro-esophageal reflux disease without esophagitis; I25.2 Old myocardial infarction; I25.10 Atherosclerotic heart disease of native coronary artery without angina pectoris; E78.00 Pure hypercholesterolemia, unspecified; G47.33 Obstructive sleep apnea (adult) (pediatric); F31.9 Bipolar disorder, unspecified; E78.5 Hyperlipidemia, unspecified; E11.40 Type 2 diabetes mellitus with diabetic neuropathy, unspecified; J44.9 Chronic obstructive pulmonary disease, unspecified; M10.9 Gout, unspecified; E83.41 Hypermagnesemia; E66.01 Morbid (severe) obesity due to excess calories; Z68.41 Body mass index [BMI] 40.0-44.9, adult; Z79.899 Other long term (current) drug therapy; Z87.891 Personal history of nicotine dependence; Y83.8 Other surgical procedures as the cause of abnormal reaction of the patient, or of later complication, without mention of misadventure at the time of the procedure; Y92.89 Other specified places as the place of occurrence of the external cause; Z83.3 Family history of diabetes mellitus; Z82.49 Family history of ischemic heart disease and other diseases of the circulatory system

== ENCOUNTER 2019-08-18 02:40 | Inpatient (IN) | payer MEDICARE ==
[2019-08-16 15:45] VITALS: BP 153/69
[2019-08-18] VITALS (8 sets, daily range): BP systolic 116–177; BP diastolic 61–82
[~2019-08-18] VITALS: Ht 180.3 cm; Wt 130.9 kg
--- NOTE | 2019-08-18 | NUR ---
PRN MEDICATION EFFECTIVE PT SLEEPING
[2019-08-18] MEDS ORDERED: METOPROLOL TART50 M1 PO (09:41)
[2019-08-18 15:03] LABS: HEMATOCRIT 46.3 % (42.0-52.0); HEMOGLOBIN 14.4 g/dl (14.0-18.0)
--- NOTE | 2019-08-18 15:45 | NUR ---
Time: 1544 A 41 year old MALE admitted to under services of LUIS FERNANDO PEDRO DO. Pt. arrived via bed from [place]. Chief complaint: FOOT SURGERY. KINSEY PEPE
--- NOTE | 2019-08-18 16:09 | NUR ---
MADE DR. OCHOA AWARE PT MEDICATIONS WAS VERIFIED AND NEED ORDERED.
--- NOTE | 2019-08-18 17:52 | NUR ---
PATIENT RESTING. NO VOICED COMPLAINTS. RESPIRATIONS EASY, REGULAR. VISITOR AT BEDSIDE. WILL CONTINUE TO MONITOR.
--- NOTE | 2019-08-18 19:48 | NUR ---
IN TO ASSESS PATIENT. PATIENT STATES SORENESS IN RIGHT ANKLE/FOOT. PERCOCET PROVIDED. SPOKE WITH PATIENT ABOUT WEIGHTBARING STATUS AND HE IS NOT ALLOWED UP ON THE FOOT. PATIENT VERBALIZED UNDERSTANDING. CALL LIGHT CINDA ROSE, WILL MONITOR
--- NOTE | 2019-08-18 20:05 | NUR ---
PATIENT REQUESTING TO GO OUTSIDE TO SMOKE. EXPLAINED TO PATIENT THAT HE IS UNABLE TO GO OUTSIDE. EXPLAINED TO HIM THAT WE CAN GET HIM NICOTINE SUPPLEMENTS AND HE STATED HE DOESN'T NEED IT HE JUST NEEDS A CIGARETTE. EXPLAINED TO PATIENT IF HE WOULD NEED A PATCH OR SOMETHING THAT WE CAN GET THAT FOR HIM TOLD HIM TO JUST ASK. CALL LIGHT WITHIN REACH, WILL MONITOR
--- NOTE | 2019-08-18 22:43 | NUR ---
PRN RESTORIL GIVEN FOR PT COMPLAINTS OF SLEEPLESSNESS AND HE USUALLY TAKES BELSOMRA. CALL LIGHT WITHIN REACH, LAUREN ZHOU
--- NOTE | 2019-08-19 04:04 | NUR ---
PATIENT SLEEPING, NO DISTRESS NOTED, CALL LIGHT WITHIN REACH
[2019-08-19 06:25] LABS: BASO # 0.1 10*3/uL (0.0-0.1); BASO % 0.6 % (0.0-1.0); EOS # 0.1 10*3/uL (0.0-0.4); EOS % 0.7 % (1.0-4.0); HEMATOCRIT 39.5 % (42.0-52.0); HEMOGLOBIN 12.7 g/dl (14.0-18.0); LYMPH # 1.9 10*3/uL (1.3-4.4); LYMPH % 15.9 % (27.0-41.0); MEAN CELL VOLUME 83.9 fl (80.0-94.0); MEAN CORPUSCULAR HGB CONC 32.2 g/dl (33.0-37.0); MONO # 1.4 10*3/uL (0.1-1.0); MONO % 11.6 % (3.0-9.0); NEUT # 8.4 10*3/uL (2.3-7.9); NEUT % 70.9 % (47.0-73.0); PLATELET COUNT AUTOMATED 321 10*3/uL (130-400); RED BLOOD COUNT 4.71 10*6/uL (4.50-5.90); RED CELL DISTRI WIDTH 15.9 % (0-14.5); WHITE BLOOD COUNT 11.9 10*3/uL (4.8-10.8)
[2019-08-19 06:37] LABS: BUN 14 mg/dl (7-24); CHLORIDE 107 mmol/L (98-107); CREATININE 0.78 mg/dL (0.70-1.30); PHOSPHOROUS 3.5 mg/dL (2.5-4.9); POTASSIUM 3.6 mmol/L (3.5-5.1); SODIUM 137 mmol/L (136-145)
[2019-08-19 08:00] VITALS: BP 116/59
--- NOTE | 2019-08-19 08:06 | NUR ---
PHYSICAL THERAPY Screen and PT eval received will follow thank you Radha Ac PT
--- NOTE | 2019-08-19 08:30 | NUR ---
ANTOLIN RICKETTS [id number] Please refer to the physician's history and physical for past medical history, comorbid conditions, and allergies. Diagnosis: RIGHT FOOT CHARCOT/ BLOOD LOSS Brown Score: 16,AT RISK WOUND DESCRIPTIONS: Patient has dressing intact to right foot. Patient stated he had surgery yesterday with podiatry and will continue follow up care with Dr. Ramirez upon discharge. He stated that this has been going on for about 4-5 months with Charcot foot. Strikethrough draiange noted at base of toes. Patient is able to wiggle toes at time of assessment. Capillary refill less than 3. No complaints at time of assesment. Surface the patient is resting on: Position Pro SKIN PREVENTION RECOMMENDATION: 1. Pressure redistribution support surface as appropriate 2. Elevate heels 3. Remove boots/TEDS every shift and reapply 4. Head of bed 30 degrees as tolerated 5. Assess nutrition and hydration 6. Manage moisture 7. Avoid the use of containment devices while in bed 8. Use absorptive products on surfaces limit layers of linens on bed 9. Turn and reposition every 1-2 hours in bed and every 1 hour in chair as tolerated 10. Weight shifts every 15 minutes while up in chair 11. Offloading with pillows or device to keep heels elevated off bed 12. Monitor skin at least every shift 13. Inspect under medical devices twice a day WOUND TREATMENT RECOMMENDATIONS: Await post op orders from podiatry since they did surgery yesterday. Patient will continue follow up care with Dr. Ramirez upon discharge. Heel raiser pro boots to right lower extremity while in bed.
--- NOTE | 2019-08-19 08:30 | NUR ---
PT SITTING UP AT SIDE OF BED USING URINAL. RESTING BACK IN BED. TOLERATED ROUTINE MED WITH NO PROBLEM. NO C/O AT THIS TIME. CALL LIGHT IN REACH. SEE SHIFT ASSESSMENT.
--- NOTE | 2019-08-19 08:50 | NUR ---
Spoke with regarding no post op orders for patient he stated he will notify podiatry.
--- NOTE | 2019-08-19 09:00 | NUR ---
Winder Fixer in to talk to patient. Patient states lives at home with alone. There are no steps in the home. Physician: palomo greenberg [facility] Home health services: none Patient's level of ADLs: MINIMAL ASSIST Patient has working utilities: all working DME: crutches Follow-up physician's appointment after d/c: will be made by hospitalist nurse director upon discharge Does patient want to access PORTAL?: no Discharge plan discussed with patient, he lives at home, states he gets around fine, discussed with him a short term longterm stay due to large case on right foot/leg and not being able to care for himself, he was agreeable and stated he would like to go to [facility], health social work professor will send patient's information and have [facility] initite the insurance precert, case management will follow. ALO MCWILLIAMS
--- NOTE | 2019-08-19 09:50 | NUR ---
Occupational Therapy evaluation completed on 5 with full eval to follow. Precautions include fall risk,NWB RLE, unable to "hop" on LLE, specialized boot for LLE support, w/c use,IV UE,low complexity level 51233. Recommend OT per pOC and SNF to enable return home at w/c ht and perform 18 steps to apt. Thank you. Anabela Rosa OTR/l
--- NOTE | 2019-08-19 09:50 | NUR ---
PHYSICAL THERAPY Leathaal completed pt moderate complexity 54169 recomend SNF at discharge full report to follow PT to work on transfers, Standing tolerance, W/c mobility and strengthening. Radha Ac PT
--- NOTE | 2019-08-19 10:00 | NUR ---
RESTING IN BED. RESP-EASY AND REGULAR. CALL LIGHT IN REACH.
--- NOTE | 2019-08-19 10:12 | NUR ---
PT/OT Evals are needed to complete referral. MANAGER IN TRAINING faxed referral to [facility]. PRECERT will be need to be obtained once accepted. -JOE Camejo
--- NOTE | 2019-08-19 11:20 | NUR ---
Faxed therapy evals to [facility] and asked to start precert for a friday or weekend discharge. waiting on auth
--- NOTE | 2019-08-19 11:30 | NUR ---
MACHINE ROOM OPERATOR completed HENs. -JOE Camejo
[2019-08-19 12:00] VITALS: BP 116/62
[2019-08-19 15:09] LABS: ACID FAST SPEC PROCESSING Tissue Grinding (.)
[2019-08-19 15:09] LABS: ACID FAST SPEC PROCESSING Tissue Grinding (.)
--- NOTE | 2019-08-19 15:34 | NUR ---
PT C/O RIGHT LEG/FOOT PAIN, RATESPAIN 6 ON PAIN SCALE 0-10. MEDICATED WITH PERCOCET PO PER PRN ORDER, SEE EMAR. CALL LIGHT IN REACH.
[2019-08-19 16:00] VITALS: BP 104/56
--- NOTE | 2019-08-19 16:39 | NUR ---
PERCOCET EFFECTIVE PER PT.
[2019-08-19 20:00] VITALS: BP 108/57
--- NOTE | 2019-08-19 20:01 | NUR ---
PATIENT CAME OUT TO NURSES STATION WITH FAMILY MEMBER IN WHEELCHAIR ASKING TO GO OUTSIDE TO HELP HIS FRIEND WITH CAR TROUBLE. EXPLAINED TO PATIENT THAT HE CAN'T GO OUTSIDE. PATIENT STATED THAT HE WOULD ONLY BE 5 MINUTES. EXPLAINED TO HIM IT'S JUST OUR POLICY THAT HE CANNOT GO OUTSIDE. PATIENT RETURNED TO ROOM WITH FAMILY MEMBER. WILL MONITOR.
--- NOTE | 2019-08-19 21:49 | NUR ---
PRN PERCOCET AND RESTORIL GIVEN FOR PT COMPLAINTS OF SLEEPLESSNESS AND PAIN IN THE SURGICAL SITE RATING IT 5/10. CALL LIGHT WITHIN REACH, WILL MONITOR
--- NOTE | 2019-08-19 22:03 | NUR ---
PATIENT REQUESTING NICOTROL INHALER. PATIENT STATED HE HAD IT THE LAST TIME HE WAS HERE. NOTIFIED DR. KLELEY. SHE STATED SHE WOULD PUT SOMETHING IN
--- NOTE | 2019-08-19 23:00 | NUR ---
PRN MEDICATION APPEARS EFFECTIVE, PT SLEEPING
[2019-08-20] VITALS: BP 105/54
[2019-08-20 06:27] LABS: HEMATOCRIT 36.4 % (42.0-52.0); HEMOGLOBIN 11.5 g/dl (14.0-18.0); MEAN CELL VOLUME 84.5 fl (80.0-94.0); MEAN CORPUSCULAR HGB 26.7 pg (27.0-31.0); MEAN CORPUSCULAR HGB CONC 31.6 g/dl (33.0-37.0); PLATELET COUNT AUTOMATED 291 10*3/uL (130-400); RED BLOOD COUNT 4.31 10*6/uL (4.50-5.90); RED CELL DISTRI WIDTH 15.9 % (0-14.5); WHITE BLOOD COUNT 12.2 10*3/uL (4.8-10.8)
[2019-08-20 06:50] LABS: BASOPHILS 2 % (0-1); PLATELET SUFFICIENCY NORMAL (NORMAL); TOTAL CELLS COUNTED 100 #CELLS
[2019-08-20 08:00] VITALS: BP 117/57
[2019-08-20 12:00] VITALS: BP 106/50
--- NOTE | 2019-08-20 12:03 | NUR ---
OT NOTE PATIENT SEEN OT THIS DATE 12 MINUTES. PATIENT IDENTIFIED BY NAME AND DATE OF . PATIENT COMPLETED STAND PIVOT TRANSER W/C TO AND FROM BEDSIDE COMMODE CGA GOOD CARRY OVER RLE NWB WITH VERBAL CUES PACE SELF DUE TO IMPULSIVITY. COMPLETED STATIC STANDING USE FWW SUPPORT 2 CGA 2 MINUTES X 1 AND 3 MINUTES X SECOND STAND WITH MIN VERBAL CUES RLE NWB STATUS COMPLIANCE. PATIENT SEATED IN W/C END OF SESSION NO FURTHER NEEDS VERBALIZED. CONTINUE TOWARDS PLANS OF CARE. ARCADIO JARQUIN
--- NOTE | 2019-08-20 12:08 | NUR ---
Patient was denied SNF. No Peer to Peer can be done, only appeal process. Number to contact is [phone]. Will notified RN Hospitalist Coordintor Rashmi. -JOE Camejo
--- NOTE | 2019-08-20 12:28 | NUR ---
JOE was notified by Teacher Dancing Stacie that the patient wants OV. JOE relayed this message to his Teacher Dancing Agatha. Will need face to face and consult. Will fax new referral to [facility]. -JOE Camejo
--- NOTE | 2019-08-20 12:31 | NUR ---
Nutritional Support Services Note: Dx of s/p surgery to right foot, charcot foot sec. to DM. Pt states he does not follow a diet at home. Has been a diabetic for 25yrs and his BS are always normal. Meds include insulin. He refuses to drink a supplement to help promote healing. He is c/o of not receiving enough food. Currently he is on an 1800cal diet. Ht.5'11 Wt. 288#. Albumin level is 3.6, HgbA1c is 7.3. Will provide extra portions of "free" foods. Will follow as needed. Pt declined diet copy. I stressed importance of eating healthy, controlling BS and eating adequate protein to promote healing. Will follow as needed. Megan Sierra Rdn Ld
--- NOTE | 2019-08-20 12:54 | NUR ---
HOUSE MOVER spoke with PT-Sergio for an updated PT Note. Once recieved JOE will fax it to [facility] for a reconsideration. -JOE Camejo
--- NOTE | 2019-08-20 13:11 | NUR ---
PHYSICAL THERAPY TREATMENT TIME: 11:05 AM - 11:17 12 MINUTES TOTAL Patient presented to therapy in seated position while rolling himself out of restroom in wheelchair. Patient reports 7/10 pain in the R FOOT and 3/10 pain in the L FOOT. Patient gives informed consent for treatment. Patient was identified by name and on wristband. Patient performed sit ot stand from wheelchair with CGA X 2. Patient stood at Walker standing tolerance for 1st attempt) 2 minutes ,2nd attempt) 1 min 15 seconds, 3rd attempt) 3 minutes. Patient transferred back into wheelchair with CGA X 2. Patient is NWB on the R LE and is only allowed to do standing tolerance of the L LE. NO AMBULATION OR HOPING ON THE L LE. This prevents gait training at this time. Patient was left in sitting in bedside chair with call light within reach. Patient was 1:1 with this HOSPITAL RECEIVING CLERK for 12 minutes total. RAIZA VELASCO HOSPITAL RECEIVING CLERK
--- NOTE | 2019-08-20 15:16 | NUR ---
CALLED AT 250PM TO SET UP PEER TO PEER FOR DENIED SNF STAY TO [facility] [employer]. INSURANCE REP STATED THAT IT WOULD TAKE 2-3 HOURS FOR DOCTOR TO REVIEW CLINICALS AND HE THEN HAD 24-48 HOURS TO RETURN CALL. I ASKED IF THEY WOULD POSSIBLY CALL OVER THE WEEKEND IN ORDER TO GIVE THEM AN APPROPRIATE RETURN CALL NUMBER AND REP STATED IF THEY DIDN'T CALL BY 5PM TODAY THAT THEY WOULD NOT CALL UNTIL FRIDAY. GAVE RESIDENT #[address] OCHOA OF EXPECTED CALL. NOTIFIED DR BREWER OF [facility] KELLY DIAZ.
--- NOTE | 2019-08-20 15:18 | NUR ---
Peer to Peer [phone] ref# [id number]. Per RN Hospitalist Rashmi-peer to peer has been called. -JOE Camejo
--- NOTE | 2019-08-20 15:35 | NUR ---
PHYSICAL THERAPY CO-SIGN I approve of the Physical Therapy notes written above. Radha Ac PT
[2019-08-20 16:00] VITALS: BP 119/54
[2019-08-20 20:00] VITALS: BP 121/56
--- NOTE | 2019-08-20 21:13 | NUR ---
MEDICATED WITH PERCOCET FOR C/O PAIN.
--- NOTE | 2019-08-20 22:00 | NUR ---
BLOOD SUGAR 199; COVERAGE GIVEN PER EMAR.
--- NOTE | 2019-08-20 22:15 | NUR ---
RESTING IN BED; VOICES NO C/O AT THIS TIME. PERCOCET APPARENTLY EFFECTIVE.
[2019-08-21] VITALS: BP 134/63
--- NOTE | 2019-08-21 06:06 | NUR ---
BLOOD SUGAR 132; NO COVERAGE REQUIRED. MEDICATED WITH PERCOCET FOR C/O RIGHT PAIN.
[2019-08-21 08:00] VITALS: BP 120/60
--- NOTE | 2019-08-21 08:31 | NUR ---
IN TO SEE PATIENT.
[2019-08-21 12:00] VITALS: BP 106/55
--- NOTE | 2019-08-21 12:00 | NUR ---
PT MEDICATED WITH PO PERCOCET PER PRN ORDER FOR C/O PAIN. WILL MONITOR EFFECTIVENESS.
[2019-08-21] MEDS ORDERED: LEVAQUIN500 M2 PO (12:51)
[2019-08-21] MEDS ORDERED: DOXYCYCLINE100 M3 PO (12:51)
--- NOTE | 2019-08-21 14:00 | NUR ---
Discharge instructions reviewed with patient/family. Patient receptive and verbalizes understanding. Follow-up care arranged. Written instructions given to patient/family. HERMILO STARKEY.
--- NOTE | 2019-08-23 08:09 | NUR ---
OCCUPATIONAL THERAPY CO-SIGN I approve of the Occupational Therapy notes written above. Lisandra Aguilar, OTR/L
[2019-09-30 12:04] LABS: ACID FAST CULTURE Negative (.)
[2019-09-30 12:04] LABS: ACID FAST CULTURE Negative (.)
== END 2019-08-21 14:00 | disposition home or self-care (01) | DRG 854 ==
LOC: SDC 02:40 → 5E 14:34
PROVIDERS: Podiatrist; Podiatrist Foot & Ankle Surgery; Student in an Organized Health Care Education/Training Program; ADMIT Internal Medicine
PROC: 0SGK04Z Fusion of Right Tarsometatarsal Joint with Internal Fixation Device, Open Approach (ICD-10-PCS; principal; 2019-08-18)
PROC: 0SGK07Z Fusion of Right Tarsometatarsal Joint with Autologous Tissue Substitute, Open Approach (ICD-10-PCS; principal; 2019-08-18)
PROC: 0SGH04Z Fusion of Right Tarsal Joint with Internal Fixation Device, Open Approach (ICD-10-PCS; principal; 2019-08-18)
PROC: 0SGH07Z Fusion of Right Tarsal Joint with Autologous Tissue Substitute, Open Approach (ICD-10-PCS; principal; 2019-08-18)
PROC: 0L8N0ZZ Division of Right Lower Leg Tendon, Open Approach (ICD-10-PCS; principal; 2019-08-18)
PROC: 0QBL0ZX Excision of Right Tarsal, Open Approach, Diagnostic (ICD-10-PCS; principal; 2019-08-18)
DX: A41.9 Sepsis, unspecified organism (principal); E44.0 Moderate protein-calorie malnutrition; D62 Acute posthemorrhagic anemia; Z68.41 Body mass index [BMI] 40.0-44.9, adult; G47.33 Obstructive sleep apnea (adult) (pediatric); J44.9 Chronic obstructive pulmonary disease, unspecified; M10.9 Gout, unspecified; E78.5 Hyperlipidemia, unspecified; G47.00 Insomnia, unspecified; F17.210 Nicotine dependence, cigarettes, uncomplicated; E55.9 Vitamin D deficiency, unspecified; E11.42 Type 2 diabetes mellitus with diabetic polyneuropathy; L08.9 Local infection of the skin and subcutaneous tissue, unspecified; I10 Essential (primary) hypertension; M19.071 Primary osteoarthritis, right ankle and foot; B96.1 Klebsiella pneumoniae [K. pneumoniae] as the cause of diseases classified elsewhere; B96.89 Other specified bacterial agents as the cause of diseases classified elsewhere; M21.6X1 Other acquired deformities of right foot; E11.610 Type 2 diabetes mellitus with diabetic neuropathic arthropathy; E11.65 Type 2 diabetes mellitus with hyperglycemia; I25.10 Atherosclerotic heart disease of native coronary artery without angina pectoris; E66.9 Obesity, unspecified; K21.9 Gastro-esophageal reflux disease without esophagitis; X58.XXXA Exposure to other specified factors, initial encounter; S82.891A Other fracture of right lower leg, initial encounter for closed fracture; Y93.89 Activity, other specified; Y92.89 Other specified places as the place of occurrence of the external cause; Y99.8 Other external cause status; Z71.6 Tobacco abuse counseling; I25.2 Old myocardial infarction; Z95.5 Presence of coronary angioplasty implant and graft; Z83.3 Family history of diabetes mellitus; Z82.3 Family history of stroke; Z82.49 Family history of ischemic heart disease and other diseases of the circulatory system; Z91.030 Bee allergy status; Z79.82 Long term (current) use of aspirin; Z79.899 Other long term (current) drug therapy; Z79.01 Long term (current) use of anticoagulants

== ENCOUNTER 2019-09-04 18:21 | Inpatient (IN) | payer MEDICARE ==
[~2019-09-04] VITALS: Ht 180.3 cm; Wt 118.2 kg
[~2019-09-04 18:21] MED LIST changes: +LEVAQUIN500 M2 PO; +METOPROLOL TART50 M1 PO
[2019-09-04 18:27] VITALS: BP 130/71
[2019-09-04 18:57] LABS: BASO # 0.1 10*3/uL (0.0-0.1); EOS # 0.3 10*3/uL (0.0-0.4); EOS % 2.1 % (1.0-4.0); HEMATOCRIT 42.1 % (42.0-52.0); HEMOGLOBIN 13.2 g/dl (14.0-18.0); LYMPH # 3.4 10*3/uL (1.3-4.4); LYMPH % 23.4 % (27.0-41.0); MEAN CELL VOLUME 83.4 fl (80.0-94.0); MEAN CORPUSCULAR HGB 26.1 pg (27.0-31.0); MEAN CORPUSCULAR HGB CONC 31.4 g/dl (33.0-37.0); MEAN PLATELET VOLUME 9.3 fl (9.6-12.3); MONO # 0.9 10*3/uL (0.1-1.0); MONO % 6.3 % (3.0-9.0); NEUT # 9.7 10*3/uL (2.3-7.9); NEUT % 66.9 % (47.0-73.0); PLATELET COUNT AUTOMATED 797 10*3/uL (130-400); RED BLOOD COUNT 5.05 10*6/uL (4.50-5.90); RED CELL DISTRI WIDTH 16.3 % (0-14.5); WHITE BLOOD COUNT 14.5 10*3/uL (4.8-10.8)
[2019-09-04 19:10] LABS: ACT PARTIAL THROMBO TIME 33.9 SECONDS (20.0-32.1)
[2019-09-04 19:12] LABS: ALBUMIN 2.9 gm/dl (3.1-4.5); ALKALINE PHOSPHATASE 192 U/L (45-117); BUN 10 mg/dl (7-24); CHLORIDE 102 mmol/L (98-107); CREATININE 0.91 mg/dL (0.70-1.30); LIPASE 229 U/L (73-393); POTASSIUM 3.9 mmol/L (3.5-5.1); SGOT/AST 5 IU/L (3-35); SGPT/ALT 19 U/L (12-78); SODIUM 134 mmol/L (136-145); TOTAL PROTEIN 8.4 gm/dL (6.4-8.2)
[2019-09-04 19:15] LABS: TROPONIN I < 0.015 ng/ml (<0.045)
--- NOTE | 2019-09-04 19:32 | NUR ---
PT AWARE THAT REQUIRE A URINALYSIS FOR EVALUATION,A URINAL PROVIDED AND SAFETY PRECAUTIONS INTACT AND CALL LIGHT WITHIN REACH.
[2019-09-04 20:18] VITALS: BP 130/68
[2019-09-04 20:33] LABS: CLARITY CLEAR (CLEAR); COLOR YELLOW (YELLOW)
[2019-09-04 20:34] LABS: BILIRUBIN NEGATIVE (NEGATIVE); BLOOD NEGATIVE (NEGATIVE); GLUCOSE 3+ (NEGATIVE); KETONE NEGATIVE (NEGATIVE); LEUKO ESTERASE NEGATIVE (NEGATIVE); NITRITE NEGATIVE (NEGATIVE); PH 6.5 (5.0-9.0); SPECIFIC GRAVITY 1.005 (1.005-1.030); UROBILINOGEN 0.2 E.U./dl (0.2-1.0)
[2019-09-04 20:35] VITALS: BP 136/66
[2019-09-04 20:35] LABS: EPITHELIAL CELLS 0-2
--- NOTE | 2019-09-04 20:38 | NUR ---
A 54, admitted to , under the services of LUIS FERNANDO Pedro DO with a diagnosis of CELLULITIS, SEVERE SEPSIS. Chief complaint is WOUND CHECK. Patient arrived via bed from ER. Monitor applied. Initial assessment completed. Vital signs taken and recorded. LUIS FERNANDO PEDRO DO notified of admission to the unit. Orders received. See assessment for past medical history, medications and allergies. Patient and/or family oriented to unit. [facility] visitation policy reviewed. Clothing/patient valuable form completed. TOMY REDMOND
--- NOTE | 2019-09-04 20:45 | NUR ---
UNABLE TO OBTAIN WOUND PHOTOS AT THIS TIME DUE TO CAST BEING ON RIGHT FOOT.
--- NOTE | 2019-09-04 21:15 | NUR ---
PT GIVEN PERCOCET AT THIS TIME FOR C/O PAIN TO RIGHT FOOT. WILL MONITOR FOR EFFECTIVENESS. CALL LIGHT IN REACH.
--- NOTE | 2019-09-04 22:15 | NUR ---
PERCOCET EFFECTIVE PER PT.
--- NOTE | 2019-09-04 23:00 | NUR ---
DR KOEHLER NOTIFIED THAT PT MED REC IS UP TO DATE.
--- NOTE | 2019-09-04 23:02 | NUR ---
DR KOEHLER NOTIFIED THAT PT IS DNRCC-A. SIGNED PAPER IN CHART. DR. ZALDIVAR SIGNED DNRCC-A PAPER AT BEDSIDE. DR KOEHLER INFORMED OF THIS.
[2019-09-05] VITALS (8 sets, daily range): BP systolic 108–142; BP diastolic 52–72
--- NOTE | 2019-09-05 01:00 | NUR ---
PT RESTING IN BED. NO S/S OF DISTRESS. RESPIRATIONS EASY AND UNLABORED ON ROOM AIR. SAFETY MEAUSRES IN PLACE. IV FLUIDS INFUSING. CALL LIGHT IN REACH.
--- NOTE | 2019-09-05 04:51 | NUR ---
Shift chart check completed.
[2019-09-05 07:24] LABS: BUN 11 mg/dl (7-24); CHLORIDE 111 mmol/L (98-107); CREATININE 0.81 mg/dL (0.70-1.30); POTASSIUM 3.9 mmol/L (3.5-5.1); SODIUM 141 mmol/L (136-145)
[2019-09-05 07:29] LABS: BASO # 0.1 10*3/uL (0.0-0.1); EOS # 0.3 10*3/uL (0.0-0.4); EOS % 2.7 % (1.0-4.0); HEMATOCRIT 37.8 % (42.0-52.0); HEMOGLOBIN 11.7 g/dl (14.0-18.0); LYMPH # 2.7 10*3/uL (1.3-4.4); LYMPH % 23.4 % (27.0-41.0); MEAN CELL VOLUME 84.2 fl (80.0-94.0); MEAN CORPUSCULAR HGB 26.1 pg (27.0-31.0); MEAN PLATELET VOLUME 9.4 fl (9.6-12.3); MONO # 0.9 10*3/uL (0.1-1.0); NEUT # 7.4 10*3/uL (2.3-7.9); NEUT % 64.6 % (47.0-73.0); PLATELET COUNT AUTOMATED 658 10*3/uL (130-400); RED BLOOD COUNT 4.49 10*6/uL (4.50-5.90); RED CELL DISTRI WIDTH 16.3 % (0-14.5); WHITE BLOOD COUNT 11.5 10*3/uL (4.8-10.8)
--- NOTE | 2019-09-05 07:57 | NUR ---
DR AGUILERA CONSULT CALLED TO ANSWERING SERVICE
--- NOTE | 2019-09-05 10:30 | NUR ---
PT LEFT FLOOR FOR SURGERY.
--- NOTE | 2019-09-05 10:51 | NUR ---
DR AGUILERA ON UNIT AND AWARE OF CONSULT
--- NOTE | 2019-09-05 12:24 | NUR ---
patient was not in room, perhaps in surgery.
--- NOTE | 2019-09-05 12:45 | NUR ---
PT BACK FROM SURGERY, WOUND VAC INTACT TO RLE. RESP EASY AND NONLABORED ON RA. IVF INFUSING PER ORDERS. CALL LIGHT IN REACH. ISOLATION PRECAUTIONS MAINTAINED.
--- NOTE | 2019-09-05 13:18 | NUR ---
PT REQUESTED AND WAS MEDICATED WITH NORCO FOR C/O RIGHT FOOT PAIN. CALL LIGHT IN REACH. WILL MONITOR
--- NOTE | 2019-09-05 14:20 | NUR ---
MEDICATION EFFECTIVE PER PT.
--- NOTE | 2019-09-05 16:00 | NUR ---
PT REQUESTED AND WAS MEDICATED WITH MORPHINE IV FOR C/O RIGHT FOOT PAIN. WOUND VAC INTACT AND PATENT TO RLE. CALL LIGHT IN REACH. WILL MONITOR
--- NOTE | 2019-09-05 19:30 | NUR ---
PT RESTING IN BED. VOICES NO CONCERNS AT THIS TIME.RESPS EASY AND NON LABORED. NO S/S OF DISTRESS NOTED. VSS. WHITE BOARD UPDATED. TOES ON CASTED RIGHT FOOT WARM,DRY,PINK AND PT IS ABLE TO MOVE THEM. WOUND VAC IN PLACE @200 LOW CONT. CALL LIGHT WIHTIN REACH.
--- NOTE | 2019-09-05 19:51 | NUR ---
PT C/O 01/04 THROBBING R FOOT PAIN. MEDICATED PER ORDER. WILL MONITOR FOR RELIEF. VOICES NO OTHER CONCERNS AT THIS TIME. RESTING IN BED. CALL LIGHT WITHIN REACH.
--- NOTE | 2019-09-05 20:51 | NUR ---
MEDICATION EFFECTIVE PER PT
--- NOTE | 2019-09-05 21:57 | NUR ---
Shift chart check completed.
[2019-09-06] VITALS: BP 124/63
--- NOTE | 2019-09-06 01:18 | NUR ---
PT C/O 03/06 ACHING/THROBBING RIGHT FOOT PAIN. MEDICATED PER ORDER. WILL MONITOR FOR RELIEF. VOICES NO OTHER CONCERNS AT THIS TIME. RESTING IN BED. CALL LIGHT WITHIN REACH. RESPS EASY AND NON LABORED.
--- NOTE | 2019-09-06 02:30 | NUR ---
MEDICATION EFFECTIVE. PT SLEEPING. RESPS EASY AND NON LABORED. NO S/S OF DISTRESS NOTED. CALL LIGHT WITHIN REACH.
--- NOTE | 2019-09-06 03:29 | NUR ---
PT SLEEPING. RESPS EASY AND NON LABORED. NO S/S OF DISTRESS NOTED. VSS. CALL LIGHT WITHIN REACH.
--- NOTE | 2019-09-06 06:21 | NUR ---
PT C/O 5/10 ACHING/THROBBING RIGHT FOOT PAIN. MEDICATED PER ORDER. WILL MONITOR FOR RELIEF. VOICES NO OTHER CONCERNS AT THIS TIME. RESTING IN BED. CALL LIGHT WITHIN REACH. RESPS EASY AND NON LABORED.
[2019-09-06 07:21] LABS: BASO # 0.1 10*3/uL (0.0-0.1); EOS # 0.5 10*3/uL (0.0-0.4); EOS % 4.3 % (1.0-4.0); HEMATOCRIT 35.3 % (42.0-52.0); HEMOGLOBIN 11.2 g/dl (14.0-18.0); LYMPH # 2.6 10*3/uL (1.3-4.4); LYMPH % 24.6 % (27.0-41.0); MEAN CELL VOLUME 83.6 fl (80.0-94.0); MEAN CORPUSCULAR HGB 26.5 pg (27.0-31.0); MEAN CORPUSCULAR HGB CONC 31.7 g/dl (33.0-37.0); MEAN PLATELET VOLUME 9.4 fl (9.6-12.3); MONO # 0.9 10*3/uL (0.1-1.0); MONO % 8.5 % (3.0-9.0); NEUT # 6.6 10*3/uL (2.3-7.9); NEUT % 61.3 % (47.0-73.0); PLATELET COUNT AUTOMATED 590 10*3/uL (130-400); RED BLOOD COUNT 4.22 10*6/uL (4.50-5.90); RED CELL DISTRI WIDTH 16.3 % (0-14.5); WHITE BLOOD COUNT 10.7 10*3/uL (4.8-10.8)
[2019-09-06 07:38] LABS: ALBUMIN 2.3 gm/dl (3.1-4.5); ALKALINE PHOSPHATASE 151 U/L (45-117); BUN 9 mg/dl (7-24); CHLORIDE 108 mmol/L (98-107); POTASSIUM 4.2 mmol/L (3.5-5.1); SGOT/AST 6 IU/L (3-35); SGPT/ALT 12 U/L (12-78); SODIUM 138 mmol/L (136-145); TOTAL PROTEIN 6.5 gm/dL (6.4-8.2)
--- NOTE | 2019-09-06 07:55 | NUR ---
ANTOLIN RICKETTS [id number] Please refer to the physician's history and physical for past medical history, comorbid conditions, and allergies. Diagnosis: CELLULITIS SEVERE SEPSIS Brown Score: 17,AT RISK WOUND DESCRIPTIONS: WOUND #1 RIGHT FOOT WOUND VAC INTACT AT 200 CONTINUOUS WITH 100mm OF BLOODY DRAINAGE NOTED IN THE CANISTER. NO STRIKETHROUGH NOTED AT TIME OF ASSESSMENT. PATIENT DENIED PAIN AT TIME OF ASSESSMENT. Surface the patient is resting on: Isoflex SKIN PREVENTION RECOMMENDATION: 1. Pressure redistribution support surface as appropriate 2. Elevate heels 3. Remove boots/TEDS every shift and reapply 4. Head of bed 30 degrees as tolerated 5. Assess nutrition and hydration 6. Manage moisture 7. Avoid the use of containment devices while in bed 8. Use absorptive products on surfaces limit layers of linens on bed 9. Turn and reposition every 1-2 hours in bed and every 1 hour in chair as tolerated 10. Weight shifts every 15 minutes while up in chair 11. Offloading with pillows or device to keep heels elevated off bed 12. Monitor skin at least every shift 13. Inspect under medical devices twice a day WOUND TREATMENT RECOMMENDATIONS: PODIATRY ON CONSULT AND MANAGING RIGHT FOOT WOUND.
[2019-09-06 08:00] VITALS: BP 118/72
--- NOTE | 2019-09-06 08:00 | NUR ---
PATIENT RESTING COMFORTABLY. PLEASANT AND COOPERATIVE. NO COMPLAINTS AT THIS TIME. WILL CONTINUE TO MONITOR. KINSEY SHIELDS
--- NOTE | 2019-09-06 09:00 | NUR ---
Wig Comber in to talk to patient. Patient states lives at home with alone. There are no steps in the home. Physician: palomo greenberg [facility] Home health services: none Patient's level of ADLs: MODERATE ASSIST Patient has working utilities: all working DME: walker Follow-up physician's appointment after d/c: will be made by hospitalist nurse director upon discharge Does patient want to access PORTAL?: no Discharge plan discussed with patient he states he lives at home alone, he is having difficulty ambulating around his home, discussed with him a short temr correction for rehab and he was agreeable, he would like referred to [facility], traffic and transport planner will refer patient to [facility] [place] and initiate the insurance precert, case management will follow. ALO MCWILLIAMS
--- NOTE | 2019-09-06 10:07 | NUR ---
MEDICATD FOR C/O PAIN IN RIGHT FOOT THAT PATIENT RATES A 7 OUT OF 10, PT STATES THAT IT IS A THUMPING PAIN KINSEY HALE SPNRCC
--- NOTE | 2019-09-06 11:00 | NUR ---
PAIN MEDICATION WAS EFFECTIVE. PATIENT RATES PAIN A 3 OUT OF 10 ON PAIN SCALE. KINSEY SHIELDS
[2019-09-06 12:00] VITALS: BP 133/70
--- NOTE | 2019-09-06 12:15 | NUR ---
PATIENT IS PLEASANT AND RESTING COMFORTABLY. NO COMPLAINTS AT THIS TIME. KINSEY HALE [facility]
--- NOTE | 2019-09-06 12:55 | NUR ---
PT evaluation completed, full evaluation in medical record. Pt was compliant with non WB RLE and WBAT LLE. Contact precautions, fall precautions. Hx of Left foot ORIF. Assist when up with walker. Plan for pt to transition to [facility]. Continue PT for safety and abiding non WB R LE during functional mobility. Moderate complexity PT Eval. Thank you for this referral, Vandana Gomes, PT
--- NOTE | 2019-09-06 13:50 | NUR ---
PATIENT RATES PAIN 7 OUT OF 10 ON PAIN SCALE. WILL GIVE PERCOCET ORDERED. WILL CHECK IN A HOUR TO SEE IF IT WAS EFFECTIVE. KINSEY BEEBECC
--- NOTE | 2019-09-06 14:02 | NUR ---
Occupational therapy orders received and OT evaluation completed in full on floor four. Patient precautions include fall risk, IV, RLE NWB, RLE wound vac, LLE WBAT with custom shoe for transfers and bathroom per physician orders. Per OT eval, OT recommends SNF. If refused, home with HH SN, OT, and PT. [place] complexity [place] mod, [id number]. Thank you for the referral. Lisandra Aguilar, OTR/L
--- NOTE | 2019-09-06 14:28 | NUR ---
Patient requesting a referral to [facility] for IV ATB and wound vac treatment. Contacted facility and faxed rerferral. Requires precert.
[2019-09-06 16:00] VITALS: BP 124/62
[2019-09-06 20:00] VITALS: BP 139/76
[2019-09-07] VITALS: BP 99/62
--- NOTE | 2019-09-07 01:21 | NUR ---
SLEEPING WITH EASY AND REGULAR RESPERS ON ROOM AIR. CALL LIGHT IS WITHIN REACH.
[2019-09-07 08:00] VITALS: BP 113/50
[2019-09-07 08:02] LABS: BASO # 0.1 10*3/uL (0.0-0.1); BASO % 1.2 % (0.0-1.0); EOS # 0.5 10*3/uL (0.0-0.4); EOS % 5.2 % (1.0-4.0); HEMATOCRIT 37.9 % (42.0-52.0); HEMOGLOBIN 11.8 g/dl (14.0-18.0); LYMPH # 2.9 10*3/uL (1.3-4.4); LYMPH % 27.9 % (27.0-41.0); MEAN CELL VOLUME 82.9 fl (80.0-94.0); MEAN CORPUSCULAR HGB 25.8 pg (27.0-31.0); MEAN CORPUSCULAR HGB CONC 31.1 g/dl (33.0-37.0); MEAN PLATELET VOLUME 9.2 fl (9.6-12.3); MONO # 0.8 10*3/uL (0.1-1.0); MONO % 7.6 % (3.0-9.0); NEUT % 57.7 % (47.0-73.0); PLATELET COUNT AUTOMATED 622 10*3/uL (130-400); RED BLOOD COUNT 4.57 10*6/uL (4.50-5.90); RED CELL DISTRI WIDTH 16.2 % (0-14.5); WHITE BLOOD COUNT 10.4 10*3/uL (4.8-10.8)
[2019-09-07 08:22] LABS: BUN 9 mg/dl (7-24); CHLORIDE 107 mmol/L (98-107); CREATININE 0.74 mg/dL (0.70-1.30); SODIUM 139 mmol/L (136-145)
--- NOTE | 2019-09-07 09:00 | NUR ---
case management visits with patient, patient has been referred to [facility] for skilled care when medically stable for discharge, patient will need an insurance precert prior to going to [facility],
--- NOTE | 2019-09-07 09:51 | NUR ---
OT NOTE Pt was seen this A.M. 1:1 for 15 minute OT session. Upon arrival pt was supine in bed. Pt identified by name and and had complaints of 8/10 R foot pain. Pt presented to therapy with wound vac in place which remained in place throughout the entire session. Pt was educated and able to verbalize NWB to RLE prior to standing activities. Pt transferred supine to sit EOB with SBA. Sit to stand completed from bed level with CGA and use of w/w for UE support. Functional mobility was then completed to the bathroom with CGA and use of w/w. Throughout pt required constant verbal, tactile, and visual prompts for maintaining NWB to RLE which he was able to complete with aprox 25% compliance. Also, throughout mobility pt had one LOB that occured due to being impulsive and unsteady that required min A to correct. Pt transferred on/off standard commode with SBA and use of grab bar for UE support. Functional mobility was then completed back to the recliner with CGA and use of w/w. Throughout pt was able to maintain F- dynamic standing balance. Pt transferred stand to sit and sit to stand from chair level with Luis Carlos for assist with lower surface. Pt was left sitting upright in the recliner with call light in hand, tray table in place, and body alarm activated for safety. Continue with rec D/C plan to SNF. MILKA Donald
--- NOTE | 2019-09-07 10:56 | NUR ---
Nutritional Support Services Note: Pt is on a regular diet eating 100% of his meals. He has a cast on his rt foot d/t surgery. Will provide pt with a high protein night snack to support healing. Continue to encourage adequate nutrition and promote wound healing. Will follow if needed. FEROZ Rubio internet sourcer
--- NOTE | 2019-09-07 11:08 | NUR ---
PHYSICAL THERAPY TREATMENT TIME: 09:45 AM - 10:00 AM 15 MINUTES Patient presented to therapy with head of bed elevated and NWB on the R LE . Patient gives informed consent for treatment. Patient was identified by name and on wristband. Patient reports moderate pain in the R LE. Patient performed supine to sitting at EOB with SBA-CGA. Patient sat on EOB SBA. Patient sit to stand from EOB with CGA. Patient ambulated with Wh Walker and CGA X 1 for 30' x 1 and stand <> sit commode with CGA. Patient is NON- COMPLIANT with R LE NWB. Patient was verbal cued multiple times to maintain R LE NWB STATUS , which he failed to comply with. Patient transferred into bed side chair with CGA. Patient had LOB X 2 with MIN A X 1 required at one point to correct LOB. Patient performed seated L LE ther ex for improving strngth in all palnes of movement 2 x 10 reps each. Patient was left in sitting in bedside chair with chair alarm tested and attached to patient, call light within reach and tray table near patient. patient was 1:1 with this DOCUMENT MANAGEMENT TECHNICIAN FOR 15 MINUTES TOTAL. RAIZA VELASCO DOCUMENT MANAGEMENT TECHNICIAN
[2019-09-07 12:00] VITALS: BP 140/71
--- NOTE | 2019-09-07 13:46 | NUR ---
DR KELLEY CALLED WITH +VRE RESULT OF WOUND CULTURE OF RIGHT FOOT OBTAINED ON 09/04.
--- NOTE | 2019-09-07 14:03 | NUR ---
CALLED DR AGUILERA'S OFFICE RE: +VRE RESULTS, NOTIFIED STAFF AND WILL AWAIT RETURN CALL.
[2019-09-07 15:05] LABS: ACID FAST SPEC PROCESSING Tissue Grinding (.)
[2019-09-07 16:00] VITALS: BP 146/77
[2019-09-07 20:00] VITALS: BP 160/69
--- NOTE | 2019-09-07 21:13 | NUR ---
SPOKE WITH DR. BARFIELD FOR PATIENT REQUESTING SHOWER. SEE NEW ORDERS.
[2019-09-08] VITALS (9 sets, daily range): BP systolic 109–170; BP diastolic 45–104
--- NOTE | 2019-09-08 03:59 | NUR ---
Upon discharge recommend patient to follow up for wound care in outpatient setting continue current wound care orders at discharging facility.
--- NOTE | 2019-09-08 07:20 | NUR ---
REPORT RECEIVED. PT SLEEPING AT THIS TIME. NO S/S OF DISTRESS. CALL LIGHT IN REACH
[2019-09-08 07:22] LABS: BASO # 0.1 10*3/uL (0.0-0.1); BASO % 1.1 % (0.0-1.0); EOS # 0.5 10*3/uL (0.0-0.4); HEMOGLOBIN 11.1 g/dl (14.0-18.0); LYMPH # 2.8 10*3/uL (1.3-4.4); LYMPH % 27.3 % (27.0-41.0); MEAN CELL VOLUME 82.8 fl (80.0-94.0); MEAN CORPUSCULAR HGB 25.5 pg (27.0-31.0); MEAN CORPUSCULAR HGB CONC 30.8 g/dl (33.0-37.0); MEAN PLATELET VOLUME 9.5 fl (9.6-12.3); MONO # 0.7 10*3/uL (0.1-1.0); MONO % 6.9 % (3.0-9.0); NEUT # 6.1 10*3/uL (2.3-7.9); NEUT % 59.4 % (47.0-73.0); PLATELET COUNT AUTOMATED 600 10*3/uL (130-400); RED BLOOD COUNT 4.35 10*6/uL (4.50-5.90); WHITE BLOOD COUNT 10.3 10*3/uL (4.8-10.8)
[2019-09-08 07:48] LABS: BUN 13 mg/dl (7-24); CHLORIDE 106 mmol/L (98-107); CREATININE 0.82 mg/dL (0.70-1.30); POTASSIUM 3.9 mmol/L (3.5-5.1); SODIUM 137 mmol/L (136-145)
--- NOTE | 2019-09-08 09:00 | NUR ---
case mangaement visits with patient, he has been referred to [facility] for skilled care prior to returning home, will need an insurance precert prior to being transferred to [facility], case management will follow
--- NOTE | 2019-09-08 09:40 | NUR ---
PHYSICAL THERAPY Patient seen this am 1;1 for therapy visit and was in the bathroom upon therapist arrival. Patient identified by name / and presented with R foot wound vac, reporting no new c/o's at this time. Patient ambulated 12'x 1, wh walker, CGA to EOB sit, demonstrating uneven step sequence and PWB on R LE. Patient instructed he is NWB on R LE and was non compliant with both NWB status R LE / use of L side custom shoe. Patient instructed on importance of maintaining NWB status and was able to ambulate additional 20'x 1, MIN/CGA, wh walker, demonstrating 3 pt gait pattern with shuffling L LE. Patient was 100% compliant this trial with L custom shoe and R side NWB status. Patient demonstrated increased fatigue, requiring brief standing rest break to complete gait ex while returning to EOB sit. Patient also able to complete B LE open chain therex, all planes, x 10 reps each to increase LE strength. Patient remained EOB sit with call light, tray table and telephone. Will continue per POC as tolerated, total treatment time 18 minutes. Sergio Cochran, COATING AND BAKING OPERATOR
--- NOTE | 2019-09-08 09:50 | NUR ---
OT NOTE Pt was seen this A.M. 1:1 for 15 minute OT session. Upon arrival pt was sitting upright on the commode. Pt identified by name and and had no complaints at this time. When entering pt was found to be placing full weight on his RLE and did not have the custom shoe on his LLE. Pt donned L shoe with SBA and was educated on NWB to RLE. Sit to stand completed from commode level with SBA and use of grab bar for UE support. Functional mobility was then completed to the sink with CGA and use of w/w with constant verbal prompts for following NWB. Pt then stood sink side while washing his hands with CGA, pt had several bouts of unsteady stance throughout that were able to be corrected with Luis Carlos. Functional mobility was then completed back to the EOB with CGA and use of w/w. Throughout pt had LOB with each turn due to being very impulsive and poor safety awareness resulting in LOB that required Luis Carlos to correct. Pt presented to be aprox 25% compliant with NWB to RLE. Pt transferred back into bed sit to supine with SBA. There he was left with call light in hand, tray table in place, and phone in reach. Continue with rec D/C plan to SNF. MILKA Donald
--- NOTE | 2019-09-08 14:30 | NUR ---
PT OFF FLOOR FOR SURGERY
--- NOTE | 2019-09-08 14:46 | NUR ---
OCCUPATIONAL THERAPY CO-SIGN I approve of the Occupational Therapy notes written above. BRYANT GUAJARDO, OTR/L
--- NOTE | 2019-09-08 18:00 | NUR ---
PT BACK FROM SURGERY AT THIS TIME
--- NOTE | 2019-09-08 18:15 | NUR ---
ASSESSMENT DONE AT THIS TIME. PT OFF FLOOR DURING 1600 ASSESSMENT
[2019-09-09] VITALS: BP 130/61
--- NOTE | 2019-09-09 07:34 | NUR ---
BLOOD GLUCOSE 494, STAT REFLUX ORDERED.
--- NOTE | 2019-09-09 07:58 | NUR ---
Patient has been accepted to [facility] exemption complete. Requires precert. Precert will be started when patient is medically stable.
[2019-09-09 08:00] VITALS: BP 162/70
--- NOTE | 2019-09-09 09:55 | NUR ---
OT NOTE Pt was seen this A.M. 1:1 for 15 minute OT session. Upon arrival pt was supine in bed. Pt identified by name and and had complaints of 8/10 R foot pain. Pt presented to therapy with wound vac to RLE which remained in place throughout entire session. Pt transferred supine to sit EOB with SBA. Pt attempted to complete task without the LLE custom shoe donned. Pt was educated on use of custom shoe and then donned with SBA. Prior to start of session pt was reeducated and verbalized understanding of NWB to RLE. Sit to stand completed from bed level with CGA and use of w/w for UE support. Functional mobility was then completed into the bathroom with CGA and use of w/w. Throughout pt was aprox 50% compliant with NWB to RLE, presented with poor safety awareness, and had multiple bouts of unsteady stance due to being impulsive that required Luis Carlos to correct. Pt was educated on slowing down due to increasing risk of falls and pt continued with poor carry over. Pt transferred on/off standard commode with CGA and use of grab bar for UE support. Throughout turning pt had LOB that required Luis Carlos to correct. Functional mobility was then completed to the recliner with CGA and use of w/w with continued poor safety, impulsive, and 50% compliant with NWB to RLE even with verbal prompts provided. Pt was left sitting upright in the recliner with call light in hand, tray table in place, and body alarm activated for safety. Continue with rec D/C plan to SNF. MILKA Donald
--- NOTE | 2019-09-09 10:10 | NUR ---
PHYSICAL THERAPY TREATMENT TIME: 09:35 AM - 09:55 AM 20 MINUTES TOTAL. Patient presented to therapy with in supine in bed with head of bed elevated and wound vac on the R LE. Patient has boot on the L LE. Patient gives informed consent for treatment. Patient was identified by name and on wristband. Patient performed supine to sitting at EOB with CGA X 1. Patient sits on EOB with SBA. Patient transferred sit to stand from EOB with CGA X 1. Patient ambulated with Wh Walker and CGA X 1 for 20' x 1 and 25' x 1 with 50% compliance on R LE and one LOB requiring MIN A X 1 to correct LOB. Patient sit to stand from LOW CHAIR with CGA X 1. Patient transferred into bedside chair with CGA X 1 WITH VERBAL CUES FOR PUTTING HANDS BACK ON ARMRESTS TO SLOW DESCENT into chair. Patient was left in bedsdie chair with call light within reach, chair alarm tested and attached to patient. Patient was 1:1 with this PEBBLE MILL OPERATOR for 20 minutes total. RAIZA VELASCO PEBBLE MILL OPERATOR
--- NOTE | 2019-09-09 10:49 | NUR ---
Patient updated clinicals and therapy notes faxed to [facility] for precert. waiting on auth.
--- NOTE | 2019-09-09 11:25 | NUR ---
PT MEDICATED WITH PO PERCOCET PER ORDER FOR COMPLAINTS OF PAIN IN LEGS 04/06. WILL MONITOR FOR EFFECTIVENESS.
--- NOTE | 2019-09-09 12:49 | NUR ---
patient has received auth for [facility], wound vac is on site. Patient is ok to go if medically stable for discharge.
[2019-09-09] MEDS ORDERED: LEVAQUIN750 M1 PO (13:21)
[2019-09-09] MEDS ORDERED: DOXYCYCLINE100 M3 PO (13:21)
[2019-09-09] MEDS ORDERED: BELSOMRA15 MG PO (13:21)
[2019-09-09] MEDS ORDERED: PERCOCET 5-3251 EACH PO (13:21)
--- NOTE | 2019-09-09 13:34 | NUR ---
Patient discharged to [facility] via [facility] at 3PM. NH, nursing/stewardesses teacher notified. Discharge information faxed.
--- NOTE | 2019-09-09 15:56 | NUR ---
OCCUPATIONAL THERAPY CO-SIGN I approve of the Occupational Therapy notes written above. SUJATA MASON OTR/Felix
[2019-09-09 16:00] VITALS: BP 133/49
[2019-09-09 20:00] VITALS: BP 151/74
--- NOTE | 2019-09-09 20:00 | NUR ---
SITTING AT BEDSIDE. RESPIRATIONS EASY. LUNGS DIMINISHED, CLEAR. PULSE OX 97% RA. CLAIMS COUGH PRODUCTIVE FOR CLEAR. CAST AND WOUND VAC MAINTAINED TO RLE. +2 LLE EDEMA, DECLINES TEDS/SCDS. CALL LIGHT WITHIN REACH. NO VOICED COMPLAINTS
--- NOTE | 2019-09-09 20:27 | NUR ---
REQUESTED AND RECEIVED PERCOCET PER PRN ORDER FOR COMPLAINTS OF RIGHT FOOT PAIN RATING A 7. CALL LIGHT WITHIN REACH. WILL MONITOR FOR EFFECTIVENES
--- NOTE | 2019-09-09 20:40 | NUR ---
24 HR chart check completed.
--- NOTE | 2019-09-09 22:00 | NUR ---
SITTING AT BEDSIDE, STATES RELIEF FROM EARLIER MEDS. NO ACUTE DISTRESS NOTED. RESPIRATIONS EASY. CALL LIGHT WITHIN REACH. NO FURTHER VOICED COMPLAINTS
[2019-09-10] VITALS: BP 125/58
--- NOTE | 2019-09-10 | NUR ---
REMAINS AWAKE, RESTING WITH NO ACUTE DISTRESS NOTED. RESPIRATIONS EASY. VSS. CALL LIGHT WITHIN REACH
--- NOTE | 2019-09-10 05:40 | NUR ---
REQUESTED AND RECEIVED PERCOCET PER PRN ORDER FOR COMPLAINTS OF RIGHT FOOT PAIN RATING A 5. CALL LIGHT WITHIN REACH. WILL MONITOR FOR EFFECTIVENESS
--- NOTE | 2019-09-10 06:45 | NUR ---
MEDS EFFECTIVE. SLEEPING
--- NOTE | 2019-09-10 07:30 | NUR ---
PT RESTING IN BED. VOICES NO CONCERNS AT THIS TIME. RESPS EASY AND NON LABORED. NO S/S OF DISTRESS NOTED. VSS. WHITE BOARD UPDATED. CALL LIGHT WTIHINR EACH. WOUND VAC INTACT @200 LOW CONT. ABLE TO MOVE/WIGGLE TOES.
[2019-09-10 08:00] VITALS: BP 130/78
--- NOTE | 2019-09-10 09:10 | NUR ---
OT NOTE Pt was seen this A.M. 1:1 for 15 minute OT session. Upon arrival pt was supine in bed. Pt identified by name and and had no complaints at this time. Pt presented to therapy with wound vac to [facility] which remained in place throughout the entire session. Pt transferred supine to sit EOB with SBA. While sitting EOB pt donned L custom shoe [place]. Sit to stand completed from bed level with CGA and use of w/w for UE support. Functional mobility was then completed to the recliner with CGA and use of w/w. Througout pt was 100% compliant with NWB status to [facility]. Pt then completed multiple sit to stand transfers from chair level with CGA and use of w/w for UE support. Throughout sit to stand and stand to sit pt had good carry over of NWB technique previously educated on. Pt was left sitting upright in the recliner with call light in hand, tray tablein place, and phone in reach. COntinue with rec D/C plan tp SNF MICAH Donald/Felix
--- NOTE | 2019-09-10 10:48 | NUR ---
PHYSICAL THERAPY Patient seen this am 1:1 for therapy visit and was supine in bed upon therapist arrival. Patient identified by name / and presented with R LE wound vac. Patient is NWB on R LE while transfering supine to sit EOB, CGA, then sit to stand MIN/CGA, use of wh walker standing support. Patient ambulated 15'x 1 around bed to bedside chair, CGA, demonstrating 3 pt, shuffling gait pattern and was 100% compliant this session with NWB status. Patient still fatigues quickly, needing seated rest break following gait ex, then completed sit to stand transfer from low chair surface, MIN A, tolerating static stand approx 3 minutes with use of wh walker. Patient returned to bedside chair and remained semi reclined with B LE's elevated, call light, tray table and cell phone. Will continue per POC as tolerated, total treatment time 16 minutes. Sergio Cochran, SHOE LASTER
[2019-09-10 12:00] VITALS: BP 129/67
--- NOTE | 2019-09-10 13:24 | NUR ---
PT C/P 01/04 THROBBING RIGHT FOOT PAIN. MEDICATED PER ORDER. WILL MONITOR FOR RELIEF. RESTING IN BED. CALL LIGHT WITHIN REACH.
--- NOTE | 2019-09-10 13:28 | NUR ---
PT BECOMING INCREASINGLY FRUSTRATED REGARDING DISCHARGE PLAN. TALKED WITH PATIENT AND EXPLAINED THE PURPOSE/RATIONALE FOR THE WOUND VAC. HES CURRENTLY STATING THAT HES PLANING TO LEAVE AMA IF IT IS NOT RESOVLED TODAY
--- NOTE | 2019-09-10 13:55 | NUR ---
SPOKE WITH CASE MANAGEMENT WHO STATED PTS WOUND VAC IS IN ROUTE TO FACILITY AND HE WILL BE ABLE TO LEAVE FROM HERE TODAY ONCE THE WOUND VAC ARRIVES
--- NOTE | 2019-09-10 14:03 | NUR ---
REPORT GIVEN TO NURSE FROM [facility].
[2019-09-10 14:06] LABS: ACID FAST SPEC PROCESSING Tissue Grinding (.)
[2019-09-10 14:06] LABS: ACID FAST SPEC PROCESSING Tissue Grinding (.)
--- NOTE | 2019-09-10 14:19 | NUR ---
In to see patient with case management coordinator, Agatha Thayer. Lidya May, Structural Ironworker for [facility] stating the [facility] wound vac will be at her facililty between 5 and 5:30. Dr[address] Mays has discharged this patient and the patient is stating he has already set up his own transport. Lidya stated she will call the nursing floor when the wound vac arrives to notifiy patient is ok for discharge. nursing notified.
--- NOTE | 2019-09-10 14:30 | NUR ---
MEDICATION EFFECTIVE PER PT
--- NOTE | 2019-09-10 14:40 | NUR ---
PHYSICAL THERAPY CO-SIGN I approve of the Physical Therapy notes written above. Radha Ac PT
--- NOTE | 2019-09-10 16:58 | NUR ---
Discharge instructions reviewed with patient/family. Patient receptive and verbalizes understanding. Follow-up care arranged. Written instructions given to patient/family. HISSOM,ANGELO The Discharge Plan/Instructions have been completed.
--- NOTE | 2019-09-13 07:46 | NUR ---
OCCUPATIONAL THERAPY CO-SIGN I approve of the Occupational Therapy notes written above. BRYANT GUAJARDO, OTR/L
== END 2019-09-10 16:49 | disposition other institution (70) | DRG 854 ==
LOC: ED 18:21 → 4E 19:40 → EDHOLD 19:40 → 4E 19:59
PROVIDERS: Family Medicine; Internal Medicine; Nurse Practitioner Family; Podiatrist; Podiatrist Foot & Ankle Surgery; ADMIT Internal Medicine
DX: A41.9 Sepsis, unspecified organism (principal); L03.115 Cellulitis of right lower limb; E87.1 Hypo-osmolality and hyponatremia; T84.223A Displacement of internal fixation device of bones of foot and toes, initial encounter; T81.31XA Disruption of external operation (surgical) wound, not elsewhere classified, initial encounter; L02.611 Cutaneous abscess of right foot; M86.8X7 Other osteomyelitis, ankle and foot; R65.20 Severe sepsis without septic shock; D64.9 Anemia, unspecified; F17.210 Nicotine dependence, cigarettes, uncomplicated; G47.33 Obstructive sleep apnea (adult) (pediatric); J44.9 Chronic obstructive pulmonary disease, unspecified; I10 Essential (primary) hypertension; E78.5 Hyperlipidemia, unspecified; K21.9 Gastro-esophageal reflux disease without esophagitis; E11.65 Type 2 diabetes mellitus with hyperglycemia; E11.42 Type 2 diabetes mellitus with diabetic polyneuropathy; E11.610 Type 2 diabetes mellitus with diabetic neuropathic arthropathy; E11.51 Type 2 diabetes mellitus with diabetic peripheral angiopathy without gangrene; E11.69 Type 2 diabetes mellitus with other specified complication; I25.10 Atherosclerotic heart disease of native coronary artery without angina pectoris; D47.3 Essential (hemorrhagic) thrombocythemia; Z79.4 Long term (current) use of insulin; Z71.6 Tobacco abuse counseling; I25.2 Old myocardial infarction; Z86.14 Personal history of Methicillin resistant Staphylococcus aureus infection; Z91.030 Bee allergy status; Z79.899 Other long term (current) drug therapy; Z83.3 Family history of diabetes mellitus; Z82.3 Family history of stroke; Z82.49 Family history of ischemic heart disease and other diseases of the circulatory system; Y83.1 Surgical operation with implant of artificial internal device as the cause of abnormal reaction of the patient, or of later complication, without mention of misadventure at the time of the procedure; Y92.89 Other specified places as the place of occurrence of the external cause

== ENCOUNTER 2019-09-11 10:43 | Emergency (ER) | payer MEDICARE ==
[~2019-09-11] VITALS: Ht 180.3 cm; Wt 127.0 kg
[~2019-09-11 10:43] MED LIST changes: +LEVAQUIN750 M1 PO
[2019-09-11 10:45] VITALS: BP 128/63
== END 2019-09-11 13:20 | disposition home or self-care (01) ==
LOC: ED 10:43
DX: Z48.01 Encounter for change or removal of surgical wound dressing (principal)

== ENCOUNTER 2019-10-06 18:30 | Inpatient (IN) | payer MEDICARE ==
[~2019-10-06] VITALS: Ht 180.3 cm; Wt 132.3 kg
[2019-10-06 18:40] VITALS: BP 144/60
[2019-10-06 19:19] LABS: BASO # 0.1 10*3/uL (0.0-0.1); EOS # 0.6 10*3/uL (0.0-0.4); EOS % 4.9 % (1.0-4.0); HEMATOCRIT 40.9 % (42.0-52.0); HEMOGLOBIN 12.6 g/dl (14.0-18.0); LYMPH # 2.6 10*3/uL (1.3-4.4); LYMPH % 23.3 % (27.0-41.0); MEAN CELL VOLUME 81.6 fl (80.0-94.0); MEAN CORPUSCULAR HGB 25.1 pg (27.0-31.0); MEAN CORPUSCULAR HGB CONC 30.8 g/dl (33.0-37.0); MEAN PLATELET VOLUME 9.3 fl (9.6-12.3); MONO # 0.8 10*3/uL (0.1-1.0); MONO % 6.9 % (3.0-9.0); NEUT # 7.1 10*3/uL (2.3-7.9); NEUT % 63.5 % (47.0-73.0); PLATELET COUNT AUTOMATED 349 10*3/uL (130-400); RED BLOOD COUNT 5.01 10*6/uL (4.50-5.90); RED CELL DISTRI WIDTH 18.9 % (0-14.5); WHITE BLOOD COUNT 11.2 10*3/uL (4.8-10.8)
[2019-10-06 19:29] LABS: ACT PARTIAL THROMBO TIME 29.7 SECONDS (20.0-32.1); INTERNATIONAL NORM RATIO 0.9 (2.0-3.5)
--- NOTE | 2019-10-06 19:32 | NUR ---
PER DNP DAVION HUFFMAN,PT SEEN BY PODIATRY AND ADVISED NOT TO REMOVE HARD CAST ON RIGHT FOOT.NO PHOTO TAKEN OF WOUND.
[2019-10-06 19:34] LABS: ALBUMIN 2.9 gm/dl (3.1-4.5); ALKALINE PHOSPHATASE 202 U/L (45-117); BUN 11 mg/dl (7-24); CHLORIDE 108 mmol/L (98-107); CREATININE 0.84 mg/dL (0.70-1.30); LIPASE 313 U/L (73-393); POTASSIUM 4.2 mmol/L (3.5-5.1); SGOT/AST 17 IU/L (3-35); SGPT/ALT 24 U/L (12-78); SODIUM 138 mmol/L (136-145); TOTAL PROTEIN 7.3 gm/dL (6.4-8.2)
[2019-10-06 19:36] LABS: TROPONIN I < 0.015 ng/ml (<0.045)
--- NOTE | 2019-10-06 19:49 | NUR ---
PT PROVIDED BEDSIDE URINAL AND PROMPTED FOR URINE SPECIMEN.PT DENIES ANY OTHER WOUNDS.
--- NOTE | 2019-10-06 20:10 | NUR ---
INFUSION OF ZOSYN INITIATED.NS CONTINUES TO INFUSE.
--- NOTE | 2019-10-06 20:38 | NUR ---
INFUSION OF NS AND ZOSYN COMPLETED.
--- NOTE | 2019-10-06 20:41 | NUR ---
INFUSION OF VANCOMYCIN INITIATED.
--- NOTE | 2019-10-06 20:42 | NUR ---
PT REPORTS HE IS VERY HUNGRY.PT OFFERED TURKEY SANDWICH BOX LUNCH.PT REQUEST ONLY TITA CRACKERS.PT PROVIDED 2 PACKS TITA CRACKERS.
[2019-10-06 21:55] VITALS: BP 144/66
--- NOTE | 2019-10-06 21:55 | NUR ---
Time: 2154 A 54 year old MALE admitted to 5E under services of JAMMIE MACK DO, Pt. arrived via stretcher from ER. Chief complaint: INFECTION. TOMY GAMING
[2019-10-06] MEDS ORDERED: BASAG SOL SC (22:19)
[2019-10-06] MEDS ORDERED: MAXIPIME2 G1 IJ (22:21)
[2019-10-06] MEDS ORDERED: PERCOCET 7.5-31 EACH PO (22:25)
[2019-10-06] MEDS ORDERED: VANCOMYCIN HC1.25 GM IV (22:26)
--- NOTE | 2019-10-06 22:29 | NUR ---
DR GOFF CALLED- HOME MEDICATIONS UP TO DATE. PATIENT REQUESTING NICOTROL INHALER.
--- NOTE | 2019-10-06 22:55 | NUR ---
MADE AWARE FROM PHARMACY THAT WE DO NOT HAVE THE SUBSTITUTION FOR 40MG VASOTEC, DR GOFF MADE TREVINO, OK TO ORDER 40MG OF LISINOPRIL. SEE NEW ORDERS.
--- NOTE | 2019-10-06 23:24 | NUR ---
PATIENT REQUESTING PAIN MEDICATION FOR RIGHT FOOT PAIN RATED 7/10 ON 0/10 SCALE AND MEDICATION FOR ANXIETY. PERCOCET AND COGENTIN ADMINISTERED PRESCRIBED. WILL MONITOR FOR EFFECTIVENESS.
[2019-10-07] VITALS (7 sets, daily range): BP systolic 113–172; BP diastolic 40–99
--- NOTE | 2019-10-07 00:24 | NUR ---
PATIENT RESTING WITH EYES CLOSED. RESPIRATIONS EASY AND UNLABORED. CALL LIGHT IN REACH. WILL MONITOR.
--- NOTE | 2019-10-07 06:06 | NUR ---
ANTOLIN RICKETTS [id number] Please refer to the physician's history and physical for past medical history, comorbid conditions, and allergies. Diagnosis: CELLULITIS OF RIGHT FOOT Brown Score: 17,AT RISK WOUND DESCRIPTIONS: Patient stated this started in March or April and follows Dr. Ramirez and he will continue to follow up when discharged from the hospital. Dressing intact to right foot. No strikethrough drainage noted at time of assessment. No complaints at time of assessment. Surface the patient is resting on: Isoflex SKIN PREVENTION RECOMMENDATION: 1. Pressure redistribution support surface as appropriate 2. Elevate heels 3. Remove boots/TEDS every shift and reapply 4. Head of bed 30 degrees as tolerated 5. Assess nutrition and hydration 6. Manage moisture 7. Avoid the use of containment devices while in bed 8. Use absorptive products on surfaces limit layers of linens on bed 9. Turn and reposition every 1-2 hours in bed and every 1 hour in chair as tolerated 10. Weight shifts every 15 minutes while up in chair 11. Offloading with pillows or device to keep heels elevated off bed 12. Monitor skin at least every shift 13. Inspect under medical devices twice a day WOUND TREATMENT RECOMMENDATIONS:
--- NOTE | 2019-10-07 06:15 | NUR ---
ANTOLIN RICKETTS [id number] Please refer to the physician's history and physical for past medical history, comorbid conditions, and allergies. Diagnosis: CELLULITIS OF RIGHT FOOT Brown Score: 17,AT RISK WOUND DESCRIPTIONS: Patient stated this started in March or April and follows Dr. Ramirez and he will continue to follow up when discharged from the hospital. Dressing intact to right foot. No strikethrough drainage noted at time of assessment. No complaints at time of assessment. Surface the patient is resting on: Isoflex SKIN PREVENTION RECOMMENDATION: 1. Pressure redistribution support surface as appropriate 2. Elevate heels 3. Remove boots/TEDS every shift and reapply 4. Head of bed 30 degrees as tolerated 5. Assess nutrition and hydration 6. Manage moisture 7. Avoid the use of containment devices while in bed 8. Use absorptive products on surfaces limit layers of linens on bed 9. Turn and reposition every 1-2 hours in bed and every 1 hour in chair as tolerated 10. Weight shifts every 15 minutes while up in chair 11. Offloading with pillows or device to keep heels elevated off bed 12. Monitor skin at least every shift 13. Inspect under medical devices twice a day WOUND TREATMENT RECOMMENDATIONS: Podiatry already on consult and managing patient Venous and arterial studies due to non-healing wounds. last studies were on 06/15 and per those studies consult vascular for bilateral lower extremites
[2019-10-07 06:19] LABS: BASO # 0.1 10*3/uL (0.0-0.1); BASO % 0.9 % (0.0-1.0); EOS # 0.5 10*3/uL (0.0-0.4); EOS % 5.2 % (1.0-4.0); HEMATOCRIT 36.9 % (42.0-52.0); HEMOGLOBIN 11.4 g/dl (14.0-18.0); LYMPH # 2.9 10*3/uL (1.3-4.4); LYMPH % 29.6 % (27.0-41.0); MEAN CELL VOLUME 81.1 fl (80.0-94.0); MEAN CORPUSCULAR HGB 25.1 pg (27.0-31.0); MEAN CORPUSCULAR HGB CONC 30.9 g/dl (33.0-37.0); MEAN PLATELET VOLUME 9.4 fl (9.6-12.3); MONO # 0.7 10*3/uL (0.1-1.0); MONO % 7.2 % (3.0-9.0); NEUT # 5.5 10*3/uL (2.3-7.9); NEUT % 56.8 % (47.0-73.0); PLATELET COUNT AUTOMATED 305 10*3/uL (130-400); RED BLOOD COUNT 4.55 10*6/uL (4.50-5.90); RED CELL DISTRI WIDTH 18.3 % (0-14.5); WHITE BLOOD COUNT 9.7 10*3/uL (4.8-10.8)
--- NOTE | 2019-10-07 06:40 | NUR ---
NEW CONSULT CALLED TO DR AGUILERA'S ANSWERING SERVICE.
[2019-10-07 06:42] LABS: BUN 11 mg/dl (7-24); CHLORIDE 108 mmol/L (98-107); CREATININE 0.72 mg/dL (0.70-1.30); PHOSPHOROUS 4.4 mg/dL (2.5-4.9); POTASSIUM 3.7 mmol/L (3.5-5.1); SODIUM 139 mmol/L (136-145)
--- NOTE | 2019-10-07 07:42 | NUR ---
PHYSICAL THERAPY Screen and PT eval received will follow thank you Radha Ac PT
--- NOTE | 2019-10-07 07:57 | NUR ---
Dr. Scott notified of wound care recommendations.
--- NOTE | 2019-10-07 09:00 | NUR ---
Professor Of Food Biochemistry in to talk to patient. Patient states lives at [facility] with other residents short term. There are no steps in the home. Physician: palomo greenberg [facility]acy[facility] Home health services: none Patient's level of ADLs: MINIMAL ASSIST Patient has working utilities: all working DME: walker Follow-up physician's appointment after d/c: will be made by hospitalist nurse director upon discharge Does patient want to access PORTAL?: no Discharge plan discussed with patient, he is a short term patient at [facility] and will return when medically stable, he uses a walker for ambulation, case management will follow and send referral to [facility] when patient is medically stable for discharge. ALO MCWILLIAMS
--- NOTE | 2019-10-07 13:41 | NUR ---
Patient comes in from [facility]. He will require PT/OT evals and a precert to return.
--- NOTE | 2019-10-07 14:21 | NUR ---
PHYSICAL THERAPY Attempted to see pt for evaluation however pt going for I&D at 3:00 PM. Will follow in the AM per pt request after procedure. Radha Ac PT
--- NOTE | 2019-10-07 15:50 | NUR ---
PT TAKEN TO SURGERY AT THIS TIME.
--- NOTE | 2019-10-07 20:28 | NUR ---
PATIENT REQUESTING PAIN MEDICATION FOR RIGHT LOWER LEG PAIN RATED 7/10 ON 0/10 SCALE. PERCOCET ADMINISTERED PRESCRIBED. WILL MONITOR FOR EFFECTIVENESS.
--- NOTE | 2019-10-07 20:53 | NUR ---
24 HR chart check completed.
--- NOTE | 2019-10-07 21:28 | NUR ---
PATIENT STATES THAT PERCOCET WAS EFFECTIVE FOR RIGHT LOWER LEG PAIN, RATES 4/10 ON 0/10 SCALE. WILL MONITOR.
--- NOTE | 2019-10-07 22:37 | NUR ---
PATIENT MEDICATED TO COGENTIN TO HELP HIM SLEEP. WILL MONITOR FOR EFFECTIVENESS.
--- NOTE | 2019-10-07 22:50 | NUR ---
RIGHT UPPER ARM PICC DRESSING CHANGED.
[2019-10-07 23:33] LABS: BILIRUBIN NEGATIVE (NEGATIVE); BLOOD NEGATIVE (NEGATIVE); CLARITY CLEAR (CLEAR); COLOR YELLOW (YELLOW); GLUCOSE 3+ (NEGATIVE); KETONE NEGATIVE (NEGATIVE); LEUKO ESTERASE NEGATIVE (NEGATIVE); NITRITE NEGATIVE (NEGATIVE); SPECIFIC GRAVITY 1.015 (1.005-1.030); UROBILINOGEN 0.2 E.U./dl (0.2-1.0)
[2019-10-07 23:45] LABS: WBC 0-2 wbc/hpf (0-5)
[2019-10-08] VITALS: BP 141/68
[2019-10-08 08:00] VITALS: BP 132/67
--- NOTE | 2019-10-08 08:46 | NUR ---
C/O PAIN TO RIGHT LEG AND REQUESTED PERCOCET. GIVEN AT THIS TIME. WILL CONT TO MONITOR. CALL LIGHT IN REACH.
--- NOTE | 2019-10-08 09:46 | NUR ---
PERCOCET EFF. WILL CONT TO MONITOR. CALL LIGHT IN REACH.
--- NOTE | 2019-10-08 11:10 | NUR ---
Occupational Therapy evaluation completed on 5 with full evaluation to follow. Patient reports thatn he is ambulating w/ ww from bed to bathroom with TTWB RLE. He reports that he is not supposed to "hop" on LLE. OTR educated patient on use of bedside commode and NWB RLE. Patient reports that he prefers to use bathroom v.s. BSC. Recommend no further occupational therapy at this time and return to [facility] for IV Abx treatment upon discharge. Thank you for this referral. Anabela Rosa OTR/jl
--- NOTE | 2019-10-08 11:58 | NUR ---
PHYSICAL THERAPY Progress note: Pt was seen today for evaluation while on 5th floor. Pt is currently NWB R LE and reports a precaution that he is to limit "hopping" on L LE due to a previous fusion. Pt was modified independent with standing for 60 seconds with use of FWW for support while maintaining NWB R LE. Pt was educated on avoiding resting R LE onto L LE while in standing. A BSC was also recommended to reduce "hopping" to bathroom on L LE. No further PT is indicated at this time. Refer to evaluation for complete detials. Thank you for this referral. Yasmin Mancini, PT
[2019-10-08 12:05] VITALS: BP 155/83
--- NOTE | 2019-10-08 12:37 | NUR ---
GULSHAN faxed updates to [facility] regarding PT.
--- NOTE | 2019-10-08 14:13 | NUR ---
C/O PAIN TO RIGHT LEG OF 6/10. REQUESTED PERCOCET AT THIS TIME. WILL CONT TO MONITOR. CALL LIGHT IN REACH.
--- NOTE | 2019-10-08 14:15 | NUR ---
Patient can return to [facility] at any time once medically stable. He may return pending Auth. 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
--- NOTE | 2019-10-08 15:13 | NUR ---
PERCOCET EFF AT THIS TIME. WILL CONT TO MONITOR. CALL LIGHT IN REACH.
[2019-10-08 16:00] VITALS: BP 142/72
[2019-10-08] MEDS ORDERED: PERCOCET 7.5-31 EACH PO (16:19)
[2019-10-08] MEDS ORDERED: NEURONTIN800 MG PO (16:19)
[2019-10-08] MEDS ORDERED: BELSOMRA15 MG PO (16:19)
[2019-10-08] MEDS ORDERED: ZOSYN 3.373.375 GM/5 IV (16:22)
[2019-10-08] MEDS ORDERED: VANCO 1.251.25 GM/25 IV (16:22)
--- NOTE | 2019-10-08 16:22 | NUR ---
GULSHAN COMPLETED BSV. GULSHAN EXPLAINED THAT UPON RETURN TO FACILITY HE WOULD FACE QUARANTINE FOR A PEROD OF TIME. PATIENT REPORTS THAT HE HAS TRANSPORT AND IS READY TO GO BACK TO [facility] STAT. PATIENT CAN RETURN ONCE MEDICALLY STABLE WITHOUTH AUTHORIZATION TO [facility].
--- NOTE | 2019-10-08 17:18 | NUR ---
REPORT CALLED TO SANDRA AT [facility]. PT DISCHARGED AT THIS TIME BACK TO [facility]. PICC LINE LEFT IN RIGHT ARM. PACKET SENT WITH PATIENT.
[2019-10-09 19:06] LABS: ACID FAST SPEC PROCESSING Tissue Grinding (.)
== END 2019-10-08 17:18 | DRG 908 ==
LOC: ED 18:30 → 5E 20:04 → EDHOLD 20:04 → 5E 21:34
PROVIDERS: Nurse Practitioner Family; Podiatrist Foot & Ankle Surgery; Student in an Organized Health Care Education/Training Program; ADMIT Internal Medicine
PROC: 0QBN0ZZ Excision of Right Metatarsal, Open Approach (ICD-10-PCS; principal; 2019-10-07)
PROC: 3E0V329 Introduction of Other Anti-infective into Bones, Percutaneous Approach (ICD-10-PCS; principal; 2019-10-07)
DX: T81.31XA Disruption of external operation (surgical) wound, not elsewhere classified, initial encounter (principal); M86.171 Other acute osteomyelitis, right ankle and foot; E87.2 Acidosis; E44.0 Moderate protein-calorie malnutrition; L03.115 Cellulitis of right lower limb; T81.49XA Infection following a procedure, other surgical site, initial encounter; Z68.43 Body mass index [BMI] 50.0-59.9, adult; E87.8 Other disorders of electrolyte and fluid balance, not elsewhere classified; R70.0 Elevated erythrocyte sedimentation rate; M10.9 Gout, unspecified; R79.82 Elevated C-reactive protein (CRP); D64.9 Anemia, unspecified; R74.8 Abnormal levels of other serum enzymes; F17.210 Nicotine dependence, cigarettes, uncomplicated; E11.610 Type 2 diabetes mellitus with diabetic neuropathic arthropathy; M85.871 Other specified disorders of bone density and structure, right ankle and foot; E66.9 Obesity, unspecified; G47.33 Obstructive sleep apnea (adult) (pediatric); J41.0 Simple chronic bronchitis; I10 Essential (primary) hypertension; E78.5 Hyperlipidemia, unspecified; K21.9 Gastro-esophageal reflux disease without esophagitis; Z66 Do not resuscitate; Z51.5 Encounter for palliative care; Y83.8 Other surgical procedures as the cause of abnormal reaction of the patient, or of later complication, without mention of misadventure at the time of the procedure; G47.00 Insomnia, unspecified; E11.69 Type 2 diabetes mellitus with other specified complication; E55.9 Vitamin D deficiency, unspecified; I25.10 Atherosclerotic heart disease of native coronary artery without angina pectoris; E11.41 Type 2 diabetes mellitus with diabetic mononeuropathy; E11.65 Type 2 diabetes mellitus with hyperglycemia; Z79.4 Long term (current) use of insulin; Z71.6 Tobacco abuse counseling; Z91.030 Bee allergy status; Z83.3 Family history of diabetes mellitus; Z82.3 Family history of stroke; Z82.49 Family history of ischemic heart disease and other diseases of the circulatory system; I25.2 Old myocardial infarction; Z79.899 Other long term (current) drug therapy; Z79.01 Long term (current) use of anticoagulants; Y92.89 Other specified places as the place of occurrence of the external cause

== ENCOUNTER 2020-01-27 13:48 | Inpatient (IN) | payer MEDICARE ==
[~2020-01-27] VITALS: Ht 180.3 cm; Wt 127.1 kg
[~2020-01-27 13:48] MED LIST changes: +BASAG SOL SC; +MAXIPIME2 G1 IJ; +PERCOCET 7.5-31 EACH PO; +VANCO 1.251.25 GM/25 IV; +VANCOMYCIN HC1.25 GM IV; +ZOSYN 3.373.375 GM/5 IV
[2020-01-27 14:00] VITALS: BP 145/80
[2020-01-27 14:15] VITALS: BP 145/80
[2020-01-27 15:42] LABS: BASO # 0.1 10*3/uL (0.0-0.1); BASO % 0.6 % (0.0-1.0); EOS # 0.3 10*3/uL (0.0-0.4); EOS % 2.1 % (1.0-4.0); HEMATOCRIT 48.3 % (42.0-52.0); LYMPH # 2.6 10*3/uL (1.3-4.4); MEAN CELL VOLUME 80.9 fl (80.0-94.0); MEAN CORPUSCULAR HGB 26.3 pg (27.0-31.0); MEAN CORPUSCULAR HGB CONC 32.5 g/dl (33.0-37.0); MONO # 0.8 10*3/uL (0.1-1.0); MONO % 6.1 % (3.0-9.0); NEUT # 9.9 10*3/uL (2.3-7.9); PLATELET COUNT AUTOMATED 367 10*3/uL (130-400); RED BLOOD COUNT 5.97 10*6/uL (4.50-5.90); RED CELL DISTRI WIDTH 19.3 % (0-14.5); WHITE BLOOD COUNT 13.7 10*3/uL (4.8-10.8)
[2020-01-27 15:59] LABS: ALBUMIN 3.6 gm/dl (3.1-4.5); ALKALINE PHOSPHATASE 193 U/L (45-117); BUN 18 mg/dl (7-24); CHLORIDE 100 mmol/L (98-107); CREATININE 1.05 mg/dL (0.70-1.30); POTASSIUM 4.2 mmol/L (3.5-5.1); SGOT/AST 9 IU/L (3-35); SGPT/ALT 22 U/L (12-78); SODIUM 132 mmol/L (136-145); TOTAL PROTEIN 8.5 gm/dL (6.4-8.2)
[2020-01-27 16:00] VITALS: BP 129/70
[2020-01-27] MEDS ORDERED: LASIX20 MG PO (18:35)
[2020-01-27] MEDS ORDERED: POTASSIUM CHLO20 ME3 PO (18:37)
[2020-01-27 20:00] VITALS: BP 145/69
[2020-01-28] VITALS (9 sets, daily range): BP systolic 106–148; BP diastolic 57–88
[2020-01-28 06:39] LABS: BASO # 0.1 10*3/uL (0.0-0.1); BASO % 0.9 % (0.0-1.0); EOS # 0.3 10*3/uL (0.0-0.4); EOS % 3.4 % (1.0-4.0); HEMATOCRIT 45.9 % (42.0-52.0); LYMPH # 3.1 10*3/uL (1.3-4.4); LYMPH % 31.4 % (27.0-41.0); MEAN CELL VOLUME 82.7 fl (80.0-94.0); MEAN CORPUSCULAR HGB 25.6 pg (27.0-31.0); MEAN CORPUSCULAR HGB CONC 30.9 g/dl (33.0-37.0); MEAN PLATELET VOLUME 9.8 fl (9.6-12.3); MONO # 0.7 10*3/uL (0.1-1.0); MONO % 6.9 % (3.0-9.0); NEUT # 5.6 10*3/uL (2.3-7.9); NEUT % 57.1 % (47.0-73.0); PLATELET COUNT AUTOMATED 317 10*3/uL (130-400); RED BLOOD COUNT 5.55 10*6/uL (4.50-5.90); RED CELL DISTRI WIDTH 19.3 % (0-14.5); WHITE BLOOD COUNT 9.8 10*3/uL (4.8-10.8)
[2020-01-28 06:58] LABS: BUN 14 mg/dl (7-24); CHLORIDE 105 mmol/L (98-107); CREATININE 0.91 mg/dL (0.70-1.30); POTASSIUM 4.1 mmol/L (3.5-5.1); SGOT/AST 9 IU/L (3-35); SGPT/ALT 18 U/L (12-78); SODIUM 136 mmol/L (136-145)
[2020-01-28 07:00] LABS: ACT PARTIAL THROMBO TIME 28.7 SECONDS (20.0-32.1); ALKALINE PHOSPHATASE 161 U/L (45-117); INTERNATIONAL NORM RATIO 0.9 (2.0-3.5); TOTAL PROTEIN 7.2 gm/dL (6.4-8.2)
[2020-01-29] VITALS: BP 127/66
[2020-01-29 08:00] VITALS: BP 116/50
[2020-01-29 12:00] VITALS: BP 146/75
[2020-01-29 13:08] LABS: ACID FAST SPEC PROCESSING Tissue Grinding (.)
[2020-01-29 13:08] LABS: ACID FAST SPEC PROCESSING Tissue Grinding (.)
[2020-01-29 16:00] VITALS: BP 120/91
[2020-01-29 16:48] VITALS: BP 152/66
[2020-01-29 20:00] VITALS: BP 166/81
[2020-01-30] VITALS: BP 138/63
[2020-01-30 08:00] VITALS: BP 154/90
[2020-01-30 12:00] VITALS: BP 148/82
[2020-01-30 16:00] VITALS: BP 141/63
[2020-01-30 20:00] VITALS: BP 136/74
[2020-01-31] VITALS: BP 136/76
[2020-01-31 06:12] LABS: BASO # 0.1 10*3/uL (0.0-0.1); BASO % 1.4 % (0.0-1.0); EOS # 0.5 10*3/uL (0.0-0.4); EOS % 5.8 % (1.0-4.0); HEMATOCRIT 40.7 % (42.0-52.0); LYMPH # 2.9 10*3/uL (1.3-4.4); LYMPH % 30.7 % (27.0-41.0); MEAN CELL VOLUME 82.9 fl (80.0-94.0); MEAN CORPUSCULAR HGB 26.1 pg (27.0-31.0); MEAN CORPUSCULAR HGB CONC 31.4 g/dl (33.0-37.0); MONO # 0.5 10*3/uL (0.1-1.0); MONO % 5.3 % (3.0-9.0); NEUT # 5.3 10*3/uL (2.3-7.9); NEUT % 56.3 % (47.0-73.0); PLATELET COUNT AUTOMATED 344 10*3/uL (130-400); RED BLOOD COUNT 4.91 10*6/uL (4.50-5.90); RED CELL DISTRI WIDTH 17.8 % (0-14.5); WHITE BLOOD COUNT 9.3 10*3/uL (4.8-10.8)
[2020-01-31 06:18] LABS: BUN 15 mg/dl (7-24); CREATININE 0.99 mg/dL (0.70-1.30)
[2020-01-31 08:00] VITALS: BP 119/67
[2020-01-31 12:00] VITALS: BP 145/74
[2020-01-31] MEDS ORDERED: VANCO 1.751.75 GM/25 IV (15:42)
[2020-01-31] MEDS ORDERED: ZOSYN 3.373.375 GM/5 IV (15:42)
[2020-01-31 16:00] VITALS: BP 145/87
[2020-01-31 20:00] VITALS: BP 153/71
[2020-02-01] VITALS: BP 133/70
[2020-02-01 08:00] VITALS: BP 127/66
[2020-02-01 12:00] VITALS: BP 128/75
[2020-02-01 16:00] VITALS: BP 132/85
[2020-02-01 20:00] VITALS: BP 164/70
[2020-02-02] VITALS: BP 115/65
[2020-02-02 08:00] VITALS: BP 150/66
[2020-02-02] MEDS ORDERED: HYDROCODONE-AC1 EAC1 PO (09:16)
== END 2020-02-02 09:20 | disposition home or self-care (01) | DRG 477 ==
LOC: 5E 13:48
PROVIDERS: Internal Medicine; Podiatrist; ADMIT Family Medicine
PROC: 0QBG0ZX Excision of Right Tibia, Open Approach, Diagnostic (ICD-10-PCS; principal; 2020-01-28)
PROC: 0QBG0ZZ Excision of Right Tibia, Open Approach (ICD-10-PCS; principal; 2020-01-28)
PROC: 0QPG04Z Removal of Internal Fixation Device from Right Tibia, Open Approach (ICD-10-PCS; principal; 2020-01-28)
PROC: B548ZZA Ultrasonography of Superior Vena Cava, Guidance (ICD-10-PCS; 2020-01-31)
PROC: 02HV33Z Insertion of Infusion Device into Superior Vena Cava, Percutaneous Approach (ICD-10-PCS; 2020-01-31)
DX: T84.84XA Pain due to internal orthopedic prosthetic devices, implants and grafts, initial encounter (principal); A41.9 Sepsis, unspecified organism; M86.671 Other chronic osteomyelitis, right ankle and foot; E44.1 Mild protein-calorie malnutrition; L03.115 Cellulitis of right lower limb; E11.610 Type 2 diabetes mellitus with diabetic neuropathic arthropathy; I25.10 Atherosclerotic heart disease of native coronary artery without angina pectoris; S91.301A Unspecified open wound, right foot, initial encounter; M10.9 Gout, unspecified; E78.5 Hyperlipidemia, unspecified; K21.9 Gastro-esophageal reflux disease without esophagitis; Z68.39 Body mass index [BMI] 39.0-39.9, adult; F17.210 Nicotine dependence, cigarettes, uncomplicated; E11.42 Type 2 diabetes mellitus with diabetic polyneuropathy; G47.33 Obstructive sleep apnea (adult) (pediatric); J44.9 Chronic obstructive pulmonary disease, unspecified; I10 Essential (primary) hypertension; G47.00 Insomnia, unspecified; E55.9 Vitamin D deficiency, unspecified; E11.65 Type 2 diabetes mellitus with hyperglycemia; E66.9 Obesity, unspecified; D64.9 Anemia, unspecified; B95.7 Other staphylococcus as the cause of diseases classified elsewhere; Y79.3 Surgical instruments, materials and orthopedic devices (including sutures) associated with adverse incidents; Y92.89 Other specified places as the place of occurrence of the external cause; Z71.6 Tobacco abuse counseling; I25.2 Old myocardial infarction; Z83.3 Family history of diabetes mellitus; Z82.49 Family history of ischemic heart disease and other diseases of the circulatory system; Z82.3 Family history of stroke; Z91.030 Bee allergy status; Z79.899 Other long term (current) drug therapy; Z79.4 Long term (current) use of insulin; Z79.01 Long term (current) use of anticoagulants

== ENCOUNTER → 2020-03-30 | Outpatient (CLI) | payer MEDICARE ==
[~2020-03-30] MED LIST changes: +LASIX20 MG PO; +POTASSIUM CHLO20 ME3 PO; +VANCO 1.751.75 GM/25 IV
== END | disposition home or self-care (01) ==
LOC: COVID19 02:50
PROVIDERS: ATTEND Podiatrist
DX: Z01.812 Encounter for preprocedural laboratory examination (principal); Z20.828 Contact with and (suspected) exposure to other viral communicable diseases

== ENCOUNTER → 2020-06-20 | Outpatient (CLI) | payer MEDICARE | END | disposition home or self-care (01) | LOC: RAD 09:16 | PROVIDERS: ATTEND Internal Medicine Critical Care Medicine | DX: Z01.818 Encounter for other preprocedural examination (principal); R06.02 Shortness of breath ==

== ENCOUNTER → 2021-08-15 | Outpatient (CLI) | payer MEDICARE | LOC: US 11:06 | PROVIDERS: ATTEND Podiatrist Foot & Ankle Surgery | DX: R60.0 Localized edema (principal) ==

== ENCOUNTER → 2021-09-05 | Outpatient (CLI) | payer MEDICARE | END | disposition home or self-care (01) | LOC: CT 12:20 | PROVIDERS: ATTEND Nurse Practitioner Family | DX: N28.9 Disorder of kidney and ureter, unspecified (principal) ==

== ENCOUNTER 2021-12-08 15:25 | Emergency (ER) | payer MEDICARE ==
[~2021-12-08] VITALS: Ht 180.3 cm; Wt 125.6 kg
[2021-12-08 16:39] VITALS: BP 170/83
[2021-12-08] MEDS ORDERED: HYDROCODONE-AC1 EAC1 PO (17:10)
[2021-12-08] MEDS ORDERED: SEPTDS PO (17:12)
[2021-12-08] MEDS ORDERED: CEPHALEXIN500 M1 PO (17:12)
== END 2021-12-08 17:25 | disposition home or self-care (01) ==
LOC: ED 15:25
DX: T24.232A Burn of second degree of left lower leg, initial encounter (principal); F17.200 Nicotine dependence, unspecified, uncomplicated; Z79.899 Other long term (current) drug therapy; Z91.030 Bee allergy status; X16.XXXA Contact with hot heating appliances, radiators and pipes, initial encounter; Y93.89 Activity, other specified; Y92.89 Other specified places as the place of occurrence of the external cause; Y99.9 Unspecified external cause status

== ENCOUNTER → 2021-12-10 | Outpatient (CLI) | payer MEDICARE | LOC: WOUNDCARE 09:41 | PROVIDERS: ATTEND Nurse Practitioner Family | DX: T24.332A Burn of third degree of left lower leg, initial encounter (principal); T31.0 Burns involving less than 10% of body surface; E11.40 Type 2 diabetes mellitus with diabetic neuropathy, unspecified; E78.00 Pure hypercholesterolemia, unspecified; I25.10 Atherosclerotic heart disease of native coronary artery without angina pectoris; I10 Essential (primary) hypertension; F17.200 Nicotine dependence, unspecified, uncomplicated; Z95.818 Presence of other cardiac implants and grafts; Y93.89 Activity, other specified; Y92.89 Other specified places as the place of occurrence of the external cause; Y99.8 Other external cause status ==

== ENCOUNTER → 2022-01-23 | Outpatient (CLI) | payer OTHER, MEDICARE | END | disposition home or self-care (01) | LOC: WOUNDCARE 02:36 | PROVIDERS: ATTEND Nurse Practitioner Family | DX: T24.302A Burn of third degree of unspecified site of left lower limb, except ankle and foot, initial encounter (principal); T31.0 Burns involving less than 10% of body surface; E11.40 Type 2 diabetes mellitus with diabetic neuropathy, unspecified; I25.10 Atherosclerotic heart disease of native coronary artery without angina pectoris; I10 Essential (primary) hypertension; E78.00 Pure hypercholesterolemia, unspecified; F17.200 Nicotine dependence, unspecified, uncomplicated; Z95.818 Presence of other cardiac implants and grafts; X08.8XXA Exposure to other specified smoke, fire and flames, initial encounter; Y93.89 Activity, other specified; Y92.89 Other specified places as the place of occurrence of the external cause; Y99.8 Other external cause status ==

== ENCOUNTER → 2022-01-31 | Outpatient (CLI) | payer OTHER, MEDICARE | END | disposition home or self-care (01) | LOC: WOUNDCARE 00:18 | PROVIDERS: ATTEND Nurse Practitioner Family | DX: T24.302D Burn of third degree of unspecified site of left lower limb, except ankle and foot, subsequent encounter (principal); T31.0 Burns involving less than 10% of body surface; E11.622 Type 2 diabetes mellitus with other skin ulcer; L97.822 Non-pressure chronic ulcer of other part of left lower leg with fat layer exposed; E11.40 Type 2 diabetes mellitus with diabetic neuropathy, unspecified; E78.00 Pure hypercholesterolemia, unspecified; I25.10 Atherosclerotic heart disease of native coronary artery without angina pectoris; I10 Essential (primary) hypertension; F17.200 Nicotine dependence, unspecified, uncomplicated; Z95.818 Presence of other cardiac implants and grafts; X58.XXXD Exposure to other specified factors, subsequent encounter ==

== ENCOUNTER → 2022-02-20 | Outpatient (CLI) | payer OTHER, MEDICARE | END | disposition home or self-care (01) | LOC: WOUNDCARE 01:28 | PROVIDERS: ATTEND Nurse Practitioner Family | DX: T24.302D Burn of third degree of unspecified site of left lower limb, except ankle and foot, subsequent encounter (principal); T31.0 Burns involving less than 10% of body surface; E11.622 Type 2 diabetes mellitus with other skin ulcer; L97.822 Non-pressure chronic ulcer of other part of left lower leg with fat layer exposed; E11.40 Type 2 diabetes mellitus with diabetic neuropathy, unspecified; E78.00 Pure hypercholesterolemia, unspecified; I25.10 Atherosclerotic heart disease of native coronary artery without angina pectoris; I10 Essential (primary) hypertension; F17.200 Nicotine dependence, unspecified, uncomplicated; Z95.818 Presence of other cardiac implants and grafts; X08.8XXD Exposure to other specified smoke, fire and flames, subsequent encounter ==

== ENCOUNTER → 2022-02-28 | Outpatient (CLI) | payer OTHER, MEDICARE | END | disposition home or self-care (01) | LOC: WOUNDCARE 02:22 | PROVIDERS: ATTEND Nurse Practitioner Family | DX: E11.622 Type 2 diabetes mellitus with other skin ulcer (principal); L97.822 Non-pressure chronic ulcer of other part of left lower leg with fat layer exposed; T24.302D Burn of third degree of unspecified site of left lower limb, except ankle and foot, subsequent encounter; T31.0 Burns involving less than 10% of body surface; E11.40 Type 2 diabetes mellitus with diabetic neuropathy, unspecified; E78.00 Pure hypercholesterolemia, unspecified; I25.10 Atherosclerotic heart disease of native coronary artery without angina pectoris; I10 Essential (primary) hypertension; F17.200 Nicotine dependence, unspecified, uncomplicated; Z95.818 Presence of other cardiac implants and grafts; X08.8XXD Exposure to other specified smoke, fire and flames, subsequent encounter ==

== ENCOUNTER → 2022-03-07 | Outpatient (CLI) | payer OTHER, MEDICARE | END | disposition home or self-care (01) | LOC: WOUNDCARE 01:55 | PROVIDERS: ATTEND Nurse Practitioner Family | DX: T24.302D Burn of third degree of unspecified site of left lower limb, except ankle and foot, subsequent encounter (principal); T31.0 Burns involving less than 10% of body surface; E11.622 Type 2 diabetes mellitus with other skin ulcer; L97.822 Non-pressure chronic ulcer of other part of left lower leg with fat layer exposed; E11.40 Type 2 diabetes mellitus with diabetic neuropathy, unspecified; E78.00 Pure hypercholesterolemia, unspecified; F17.200 Nicotine dependence, unspecified, uncomplicated; I25.10 Atherosclerotic heart disease of native coronary artery without angina pectoris; I10 Essential (primary) hypertension; Z95.818 Presence of other cardiac implants and grafts; X08.8XXD Exposure to other specified smoke, fire and flames, subsequent encounter ==

== ENCOUNTER → 2022-04-18 | Outpatient (CLI) | payer OTHER, MEDICARE | END | disposition home or self-care (01) | LOC: WOUNDCARE 04-17 18:14 | PROVIDERS: ATTEND Nurse Practitioner Family | DX: T24.332A Burn of third degree of left lower leg, initial encounter (principal); E11.622 Type 2 diabetes mellitus with other skin ulcer; L97.822 Non-pressure chronic ulcer of other part of left lower leg with fat layer exposed; E11.40 Type 2 diabetes mellitus with diabetic neuropathy, unspecified; E78.00 Pure hypercholesterolemia, unspecified; I25.10 Atherosclerotic heart disease of native coronary artery without angina pectoris; I10 Essential (primary) hypertension; F17.200 Nicotine dependence, unspecified, uncomplicated; Z95.818 Presence of other cardiac implants and grafts; Z79.84 Long term (current) use of oral hypoglycemic drugs; X08.8XXA Exposure to other specified smoke, fire and flames, initial encounter; Y93.89 Activity, other specified; Y92.89 Other specified places as the place of occurrence of the external cause; Y99.8 Other external cause status ==

== ENCOUNTER 2022-08-06 14:57 | Inpatient (IN) | payer OTHER ==
[~2022-08-06] VITALS: Ht 177.8 cm; Wt 127.1 kg
[~2022-08-06 14:57] MED LIST changes: -BELSOMRA20 MG PO
[2022-08-06 15:07] VITALS: BP 111/58
[2022-08-06 15:49] LABS: BASO # 0.1 10*3/uL (0.0-0.1); BASO % 0.7 % (0.0-1.0); EOS # 0.2 10*3/uL (0.0-0.4); EOS % 1.9 % (1.0-4.0); HEMATOCRIT 45.2 % (42.0-52.0); LYMPH # 2.4 10*3/uL (1.3-4.4); LYMPH % 20.7 % (27.0-41.0); MEAN CELL VOLUME 88.6 fl (80.0-94.0); MEAN CORPUSCULAR HGB CONC 32.7 g/dl (33.0-37.0); MEAN PLATELET VOLUME 9.9 fl (9.6-12.3); MONO # 0.6 10*3/uL (0.1-1.0); MONO % 5.5 % (3.0-9.0); NEUT # 8.1 10*3/uL (2.3-7.9); NEUT % 70.9 % (47.0-73.0); PLATELET COUNT AUTOMATED 349 10*3/uL (130-400); RED CELL DISTRI WIDTH 14.7 % (0-14.5); WHITE BLOOD COUNT 11.5 10*3/uL (4.8-10.8)
[2022-08-06 16:06] LABS: ALKALINE PHOSPHATASE 208 U/L (46-116); BUN 8 mg/dl (9-23); CHLORIDE 94 mmol/L (98-107); POTASSIUM 4.4 mmol/L (3.4-5.1); SGPT/ALT 17 U/L (10-49); TOTAL PROTEIN 7.2 gm/dL (6.0-8.0)
[2022-08-06] MEDS ORDERED: BELSOMRA20 MG PO (16:42)
[2022-08-06 19:04] VITALS: BP 111/53
[2022-08-06 20:20] VITALS: BP 133/75
[2022-08-07] VITALS (8 sets, daily range): BP systolic 92–158; BP diastolic 43–89
[2022-08-07 06:50] LABS: BASO # 0.1 10*3/uL (0.0-0.1); BASO % 1.1 % (0.0-1.0); EOS # 0.3 10*3/uL (0.0-0.4); EOS % 3.1 % (1.0-4.0); HEMATOCRIT 44.3 % (42.0-52.0); LYMPH # 2.5 10*3/uL (1.3-4.4); LYMPH % 26.5 % (27.0-41.0); MEAN CELL VOLUME 88.1 fl (80.0-94.0); MEAN CORPUSCULAR HGB 29.2 pg (27.0-31.0); MEAN CORPUSCULAR HGB CONC 33.2 g/dl (33.0-37.0); MONO # 0.7 10*3/uL (0.1-1.0); MONO % 7.3 % (3.0-9.0); NEUT # 5.7 10*3/uL (2.3-7.9); NEUT % 61.6 % (47.0-73.0); PLATELET COUNT AUTOMATED 341 10*3/uL (130-400); RED BLOOD COUNT 5.03 10*6/uL (4.50-5.90); RED CELL DISTRI WIDTH 14.8 % (0-14.5); WHITE BLOOD COUNT 9.2 10*3/uL (4.8-10.8)
[2022-08-07 07:00] LABS: ACT PARTIAL THROMBO TIME 31.7 SECONDS (20.0-32.1); INTERNATIONAL NORM RATIO 0.9 (2.0-3.5)
[2022-08-07 07:18] LABS: ALKALINE PHOSPHATASE 180 U/L (46-116); BUN 9 mg/dl (9-23); CHLORIDE 102 mmol/L (98-107); POTASSIUM 4.5 mmol/L (3.4-5.1); SGPT/ALT 12 U/L (10-49); TOTAL PROTEIN 6.5 gm/dL (6.0-8.0)
[2022-08-08] VITALS: BP 112/73
[2022-08-08 06:21] LABS: BUN 6 mg/dl (9-23); CHLORIDE 100 mmol/L (98-107); POTASSIUM 4.5 mmol/L (3.4-5.1)
[2022-08-08 06:31] LABS: BASO # 0.1 10*3/uL (0.0-0.1); BASO % 0.8 % (0.0-1.0); EOS # 0.3 10*3/uL (0.0-0.4); EOS % 2.7 % (1.0-4.0); HEMATOCRIT 42.7 % (42.0-52.0); LYMPH # 2.2 10*3/uL (1.3-4.4); LYMPH % 24.2 % (27.0-41.0); MEAN CELL VOLUME 89.3 fl (80.0-94.0); MEAN CORPUSCULAR HGB 29.3 pg (27.0-31.0); MEAN CORPUSCULAR HGB CONC 32.8 g/dl (33.0-37.0); MEAN PLATELET VOLUME 9.8 fl (9.6-12.3); MONO # 0.6 10*3/uL (0.1-1.0); MONO % 6.7 % (3.0-9.0); NEUT % 65.3 % (47.0-73.0); PLATELET COUNT AUTOMATED 341 10*3/uL (130-400); RED BLOOD COUNT 4.78 10*6/uL (4.50-5.90); RED CELL DISTRI WIDTH 14.7 % (0-14.5); WHITE BLOOD COUNT 9.1 10*3/uL (4.8-10.8)
[2022-08-08 08:00] VITALS: BP 154/70
[2022-08-08 11:07] LABS: ACID FAST SPEC PROCESSING Tissue Grinding (.)
[2022-08-08 11:07] LABS: ACID FAST SPEC PROCESSING Tissue Grinding (.)
[2022-08-08 12:00] VITALS: BP 139/90
[2022-08-08] MEDS ORDERED: DOXYCYCLINE HY100 M3 PO (12:57)
[2022-08-08] MEDS ORDERED: BASAG SOL SC (12:57)
[2022-08-08] MEDS ORDERED: HYDROCODONE-AC1 EAC1 PO (12:58)
== END 2022-08-08 14:15 | disposition home or self-care (01) | DRG 908 ==
LOC: ED 14:57 → 5E 16:25 → EDHOLD 16:25 → 5E 20:51
PROVIDERS: Emergency Medicine; Internal Medicine; Podiatrist Foot & Ankle Surgery; Student in an Organized Health Care Education/Training Program; ADMIT Family Medicine; ATTEND Family Medicine
PROC: 0Q9R0ZZ Drainage of Left Toe Phalanx, Open Approach (ICD-10-PCS; principal; 2022-08-07)
PROC: 0Y6Y0Z0 Detachment at Left 5th Toe, Complete, Open Approach (ICD-10-PCS; 2022-08-07)
DX: S98.132A Complete traumatic amputation of one left lesser toe, initial encounter (principal); E11.52 Type 2 diabetes mellitus with diabetic peripheral angiopathy with gangrene; E44.1 Mild protein-calorie malnutrition; L03.116 Cellulitis of left lower limb; E87.1 Hypo-osmolality and hyponatremia; I96 Gangrene, not elsewhere classified; I25.10 Atherosclerotic heart disease of native coronary artery without angina pectoris; J44.9 Chronic obstructive pulmonary disease, unspecified; Z66 Do not resuscitate; K21.9 Gastro-esophageal reflux disease without esophagitis; E78.5 Hyperlipidemia, unspecified; E11.42 Type 2 diabetes mellitus with diabetic polyneuropathy; G47.33 Obstructive sleep apnea (adult) (pediatric); E87.8 Other disorders of electrolyte and fluid balance, not elsewhere classified; E11.65 Type 2 diabetes mellitus with hyperglycemia; F17.210 Nicotine dependence, cigarettes, uncomplicated; I10 Essential (primary) hypertension; M1A.9XX0 Chronic gout, unspecified, without tophus (tophi); E55.9 Vitamin D deficiency, unspecified; Z68.37 Body mass index [BMI] 37.0-37.9, adult; Z83.3 Family history of diabetes mellitus; Z82.3 Family history of stroke; I25.2 Old myocardial infarction; Z71.6 Tobacco abuse counseling; Z79.4 Long term (current) use of insulin; X58.XXXA Exposure to other specified factors, initial encounter; Y93.89 Activity, other specified; Y92.89 Other specified places as the place of occurrence of the external cause; Y99.8 Other external cause status

== ENCOUNTER → 2022-08-06 | Outpatient (CLI) | payer OTHER ==
[~2022-08-06] MED LIST changes: +BELSOMRA20 MG PO
== END | disposition home or self-care (01) ==
LOC: WOUNDCARE 03:14
PROVIDERS: ATTEND Nurse Practitioner Family
DX: E11.621 Type 2 diabetes mellitus with foot ulcer (principal); L97.521 Non-pressure chronic ulcer of other part of left foot limited to breakdown of skin; E11.622 Type 2 diabetes mellitus with other skin ulcer; L97.822 Non-pressure chronic ulcer of other part of left lower leg with fat layer exposed; L03.116 Cellulitis of left lower limb; E11.52 Type 2 diabetes mellitus with diabetic peripheral angiopathy with gangrene; I96 Gangrene, not elsewhere classified; E11.40 Type 2 diabetes mellitus with diabetic neuropathy, unspecified; E78.00 Pure hypercholesterolemia, unspecified; I25.10 Atherosclerotic heart disease of native coronary artery without angina pectoris; I10 Essential (primary) hypertension; F17.200 Nicotine dependence, unspecified, uncomplicated; Z95.818 Presence of other cardiac implants and grafts

== ENCOUNTER → 2023-02-19 | Outpatient (CLI) | payer OTHER ==
[~2023-02-19] MED LIST changes: +BELSOMRA20 MG PO; +DOXYCYCLINE HY100 M3 PO
== END | disposition home or self-care (01) ==
LOC: US 15:00
PROVIDERS: ATTEND Podiatrist Foot & Ankle Surgery
DX: I82.402 Acute embolism and thrombosis of unspecified deep veins of left lower extremity (principal); I10 Essential (primary) hypertension; R06.02 Shortness of breath

== ENCOUNTER → 2023-12-08 | Outpatient (CLI) | payer OTHER ==
[~2023-12-08] MED LIST changes: +NICODERM CQ1 EAC2 TD; +PREDNISONE10 MG PO
[2023-12-08 14:25] LABS: BASO # 0.1 10*3/uL (0.0-0.1); BASO % 0.8 % (0.0-1.0); EOS # 0.3 10*3/uL (0.0-0.4); EOS % 2.6 % (1.0-4.0); HEMATOCRIT 45.7 % (42.0-52.0); LYMPH # 3.5 10*3/uL (1.3-4.4); LYMPH % 27.8 % (27.0-41.0); MEAN CELL VOLUME 85.1 fl (80.0-94.0); MEAN CORPUSCULAR HGB 27.7 pg (27.0-31.0); MEAN CORPUSCULAR HGB CONC 32.6 g/dl (33.0-37.0); MEAN PLATELET VOLUME 9.8 fl (9.6-12.3); MONO # 0.6 10*3/uL (0.1-1.0); MONO % 4.9 % (3.0-9.0); NEUT % 63.6 % (47.0-73.0); PLATELET COUNT AUTOMATED 374 10*3/uL (130-400); RED BLOOD COUNT 5.37 10*6/uL (4.50-5.90); RED CELL DISTRI WIDTH 16.1 % (0-14.5); WHITE BLOOD COUNT 12.6 10*3/uL (4.8-10.8)
[2023-12-08 15:12] LABS: ALKALINE PHOSPHATASE 213 U/L (46-116); BUN 13 mg/dl (9-23); CHLORIDE 96 mmol/L (98-107); CHOLESTEROL 165 mg/dL (<200); POTASSIUM 4.2 mmol/L (3.4-5.1); SGPT/ALT 13 U/L (5-49); TRIGLYCERIDES 444 mg/dl (<150)
[2023-12-09 11:08] LABS: HEMOGOLBIN A1C >15.5 % (4.8-5.6)
== END | disposition home or self-care (01) ==
LOC: LAB 14:05
PROVIDERS: ATTEND Nurse Practitioner Family
DX: Z12.5 Encounter for screening for malignant neoplasm of prostate (principal); I10 Essential (primary) hypertension; E78.5 Hyperlipidemia, unspecified; Z79.899 Other long term (current) drug therapy; G62.9 Polyneuropathy, unspecified; Z79.4 Long term (current) use of insulin

== ENCOUNTER 2024-06-12 13:52 | Emergency (ER) | payer OTHER ==
[~2024-06-12] VITALS: Ht 180.3 cm; Wt 117.9 kg
[~2024-06-12 13:52] MED LIST changes: +CEFTRIAXON2 GM/50 ML IV; +CEFTRIAXONE2 G1 IV; +ERTAPENEM1 GM IV; +FLOMAX0.4 MG PO; +GLIPIZIDE5 MG PO; +GLUCOTROL XL5 MG PO; +HUMALOG100 UNIT/2 SC; +JARDIANCE10 MG PO; +K-TAB20 MEQ PO; +LANTUS SOL100 UNIT/1 SC; +LORAZEPAM1 MG PO; +METOPROLOL SUCC50 M1 PO; +METRONIDAZOLE500 M1 PO; +OZEMPIC2 MG/0.71 SQ; +Ondansetron4 MG PO; +PANTOPRAZOLE SO40 MG PO; +PHARMASSURE V500 MCG PO; +PROTONIX40 MG PO; +QUETIAPINE FUM200 M3 PO; +TRAZODONE50 MG PO; +VENT7GM INH; +VIBRA-TAB100 MG PO; +VITAMIN D350 MCG PO; +XARE20MG PO; +albuterol sulfate HF; +fluticasone propiona
[2024-06-12] MEDS ORDERED: Acetaminophen/Hydrocodone 5 MG/325 MG TABLET PO ONE ×2 (15:25→16:55)
[2024-06-12 17:06] VITALS: BP 113/73
[2024-06-15] MEDS ORDERED: ERTAPENEM1 GM IV (09:20)
== END 2024-06-12 17:26 | disposition home or self-care (01) ==
LOC: ED 13:52
DX: T82.898A Other specified complication of vascular prosthetic devices, implants and grafts, initial encounter (principal); I10 Essential (primary) hypertension; J44.9 Chronic obstructive pulmonary disease, unspecified; K21.9 Gastro-esophageal reflux disease without esophagitis; E78.00 Pure hypercholesterolemia, unspecified; M10.9 Gout, unspecified; E11.40 Type 2 diabetes mellitus with diabetic neuropathy, unspecified; F17.200 Nicotine dependence, unspecified, uncomplicated; Z91.030 Bee allergy status; Z88.5 Allergy status to narcotic agent; Z98.890 Other specified postprocedural states; Z95.5 Presence of coronary angioplasty implant and graft; Y82.8 Other medical devices associated with adverse incidents; Y92.009 Unspecified place in unspecified non-institutional (private) residence as the place of occurrence of the external cause

== ENCOUNTER 2024-08-03 09:44 | Emergency (ER) | payer OTHER ==
[~2024-08-03] VITALS: Ht 180.3 cm; Wt 117.0 kg
[2024-08-03 10:14] LABS: BASO # 0.1 10*3/uL (0.0-0.1); BASO % 0.6 % (0.0-1.0); EOS # 0.4 10*3/uL (0.0-0.4); EOS % 3.8 % (1.0-4.0); HEMATOCRIT 34.9 % (42.0-52.0); MEAN CORPUSCULAR HGB 23.4 pg (27.0-31.0); MEAN CORPUSCULAR HGB CONC 30.4 g/dl (33.0-37.0); MEAN PLATELET VOLUME 8.9 fl (9.6-12.3); MONO # 0.9 10*3/uL (0.1-1.0); MONO % 9.4 % (3.0-9.0); NEUT # 7.2 10*3/uL (2.3-7.9); NEUT % 72.5 % (47.0-73.0); PLATELET COUNT AUTOMATED 597 10*3/uL (130-400); RED BLOOD COUNT 4.53 10*6/uL (4.50-5.90); RED CELL DISTRI WIDTH 18.6 % (0-14.5); WHITE BLOOD COUNT 9.9 10*3/uL (4.8-10.8)
[2024-08-03 10:24] LABS: ACT PARTIAL THROMBO TIME 43.3 SECONDS (20.0-32.1)
[2024-08-03 10:39] LABS: ALKALINE PHOSPHATASE 205 U/L (46-116); BUN 13 mg/dl (9-23); CHLORIDE 102 mmol/L (98-107); POTASSIUM 4.4 mmol/L (3.4-5.1); SGPT/ALT 20 U/L (5-49); TOTAL PROTEIN 7.6 gm/dL (6.0-8.0)
[2024-08-03 11:53] VITALS: BP 121/64
[2024-08-03] MEDS ORDERED: ACETAMINOPHEN 500 MG TAB PO ONE (13:45)
[2024-08-03] MEDS ORDERED: INSULIN REGULAR, HUMAN 1 UNIT/0.01 ML IV ONE (13:45)
[2024-08-03] MEDS ORDERED: SODIUM CHLORIDE 0.9% 1,000 ML IV ONE (13:45)
[2024-08-03] MEDS ORDERED: METHOCARBAMOL 500 MG TAB PO ONE (13:45)
[2024-08-03] MEDS ORDERED: METHOCARBAMOL500 M1 PO (15:08)
== END 2024-08-03 15:51 | disposition home or self-care (01) ==
LOC: ED 09:44
PROVIDERS: Internal Medicine
DX: M62.838 Other muscle spasm (principal); M54.2 Cervicalgia; R42 Dizziness and giddiness; R53.1 Weakness; R22.41 Localized swelling, mass and lump, right lower limb; R22.42 Localized swelling, mass and lump, left lower limb; E11.9 Type 2 diabetes mellitus without complications; I10 Essential (primary) hypertension; I25.10 Atherosclerotic heart disease of native coronary artery without angina pectoris; R10.2 Pelvic and perineal pain; F17.200 Nicotine dependence, unspecified, uncomplicated; Z91.030 Bee allergy status; Z88.5 Allergy status to narcotic agent; Z79.899 Other long term (current) drug therapy; Z79.84 Long term (current) use of oral hypoglycemic drugs; Z79.4 Long term (current) use of insulin; Z95.5 Presence of coronary angioplasty implant and graft; Z98.890 Other specified postprocedural states